=== PATIENT | female | born 1950 | race African-American/Black ===

== ENCOUNTER → 2017-03-06 | Outpatient (CLI) | payer MEDICARE, BC ==
--- NOTE | 2017-03-06 16:51 | WOMENS IMAGING REPORT ---
EXAM DESCRIPTION: 3D SCREENING MAMMO BILAT COMPLETED DATE/TIME: 03/06/2017 2:51 pm REASON FOR STUDY: SCREENING MAMMO Z12.31 ENCNTR SCREEN MAMMOGRAM FOR MALIGNANT NEOPLASM OF [place] COMPARISON: No previous for comparison TECHNIQUE: Standard craniocaudal and mediolateral oblique views of each breast recorded using digita l acquisition and breast tomosynthesis. LIMITATIONS: None. FINDINGS: Findings present which are benign by mammographic criteria. No suspicious masses, calcifi cations or architectural distortion. Pertinent benign findings: Multiple oil cysts bilaterally. Stereotactic clip 6 o'clock position left breast. Read with the assistance of CAD. .[facility] - R2 Cenova Version 1.3 .[facility] Imaging - R2 Cenova Version 1.3 .[facility] - R2 Cenova Version 2.4 .[facility] [place] - R2 Cenova Version 2.4 .[facility] - R2 Photonic Laboratory Technician Version 9.2 Benign mammographic findings may include one or more of the following: Smooth masses, popcorn/rim/co arse calcifications, asymmetries, post-procedure changes, and lesions with long-standing stability. IMPRESSION: BENIGN MAMMOGRAPHIC FINDINGS. BIRADS 2 BREAST DENSITY: a. The breasts are almost entirely fatty. BIRAD: 2 BENIGN FINDING(S) RECOMMENDATION: RECOMMENDATION: ROUTINE SCREENING Please continue yearly bilateral screening tomosynthesis in February 2018 COMMENT: The patient has been notified of the results by letter per SA requirements. Additional no tification policies are in place for contacting patient with suspicious or incomplete findings. Quality ID #[id number]: The [employer] recommends an annual screening mammogram for women aged 40 years or over. This facility utilizes a reminder system to ensure that all patients receive reminder letters, and/or direct phone calls for appointments. This includes reminders for routine scr eening mammograms, diagnostic mammograms, or other Breast Imaging Interventions when appropriate. Th is patient will be placed in the appropriate reminder system. The [employer] (ACR) has developed recommendations for screening MRI of the breast s in certain patient populations, to be used in conjunction with mammography. Breast MRI surveillanc e may be appropriate for women with more than 20% lifetime risk of developing breast cancer as deter mined by genetic testing, significant family history of the disease, or history of mantle radiation f or Hodgkins Disease. ACR Practice Guidelines 2008. DBT Technology DBT is a type of tomographic mammography. With conventional mammography, overlapping breast tissue ma y make lesions difficult to detect, even with good compression. DBT uses an x-ray tube that rotates a round the breast, taking images at different angles. These images are then combined to create thin sl ices of the breast that the radiologist can view as a 3D reconstruction. The Sky[employer] unit can perform full-field digital mammograms (2D imaging); or DBT (3D imaging); or both, in a combination mode that quickly performs both the mammogram and the tomosynthesis scan while the breast is still compressed. PQRS 6045F: Fluoroscopic imaging is not utilized for breast tomosynthesis. TECHNICAL DOCUMENTATION: FINDING NUMBER: (1) ASSESSMENT: (1) JOB ID: [id number] [employer]- All Rights Reserved
== END ==
LOC: WI 14:28
PROVIDERS: ATTEND Internal Medicine Geriatric Medicine
DX: Z12.31 Encounter for screening mammogram for malignant neoplasm of breast (principal)
CPT/HCPCS: 77063; G0202; 77067

== ENCOUNTER 2017-03-28 15:37 | Emergency (ER) | payer OTHER, MEDICARE, BC ==
[2017-03-28 16:07] VITALS: BP 144/68
[2017-03-28] MEDS ORDERED: ACETAMINOPHEN 325 MG TABLET PO ONE (16:36)
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
== END 2017-03-28 17:05 | disposition home or self-care (01) ==
LOC: ER 15:37
DX: S39.012A Strain of muscle, fascia and tendon of lower back, initial encounter (principal); S29.012A Strain of muscle and tendon of back wall of thorax, initial encounter; M54.2 Cervicalgia; V43.62XA Car passenger injured in collision with other type car in traffic accident, initial encounter; I10 Essential (primary) hypertension; E11.9 Type 2 diabetes mellitus without complications; Z88.8 Allergy status to other drugs, medicaments and biological substances; Z88.5 Allergy status to narcotic agent; Z88.0 Allergy status to penicillin; Z89.511 Acquired absence of right leg below knee
CPT/HCPCS: 99283

== ENCOUNTER 2017-04-10 14:57 | Inpatient (IN) | payer MEDICARE, BC ==
[2017-04-10 15:49] LABS: HEMATOCRIT 38.9 % (36.0-47.0); HEMOGLOBIN 12.9 g/dL (12.0-15.5); HGB HCT DIFFERENCE -0.2; MEAN CORPUSCULAR HEMOGLOBIN 28.6 pg (27.0-33.4); MEAN CORPUSCULAR HGB CONC 33.3 g/dL (32.0-36.0); MEAN CORPUSCULAR VOLUME 86 fl (80-97); RED BLOOD COUNT 4.52 10^6/uL (3.72-5.28); WHITE BLOOD COUNT 19.7 10^3/uL (4.0-10.5)
[2017-04-10 16:06] LABS: ALANINE AMINOTRANSFERASE 145 U/L (9-52); ALBUMIN 3.1 g/dL (3.5-5.0); ALKALINE PHOSPHATASE 152 U/L (38-126); ANION GAP 19 (5-19); ASPARTATE AMINO TRANSFERASE 149 U/L (14-36); BILIRUBIN,DIRECT 0.2 mg/dL (0.0-0.4); BILIRUBIN,TOTAL 0.2 mg/dL (0.2-1.3); CARBON DIOXIDE 13 mmol/L (22-30); CHLORIDE 114 mmol/L (98-107); CREATININE RESULT 9.24 mg/dL (0.52-1.25); GLUCOSE 110 mg/dL (75-110); POTASSIUM 4.1 mmol/L (3.6-5.0); SODIUM 145.9 mmol/L (137-145); TOTAL PROTEIN 6.1 g/dL (6.3-8.2)
[2017-04-10] MEDS ORDERED: FAMOTIDINE INJ/PF 20 MG/2 ML SDV IV ONE (16:08)
[2017-04-10] MEDS ORDERED: METHYLPREDNISOLONE INJ 125 MG/2 ML SDV IV ONE (16:08)
[2017-04-10 16:12] LABS: BAND NEUTROPHILS % (MANUAL) 2 % (3-5); BASOPHILS % (MANUAL) 0 % (0-2); EOSINOPHILS % (MANUAL) 0 % (0-6); LYMPHOCYTES % (MANUAL) 14 % (13-45); TOTAL CELLS COUNTED 100
[2017-04-10 16:13] LABS: ANISOCYTOSIS 1+; POIKILOCYTOSIS SLIGHT; TOXIC GRANULATION SLIGHT
[2017-04-10 16:15] LABS: BLOOD UREA NITROGEN 128 mg/dL (7-20)
[2017-04-10] MEDS ORDERED: NORMAL SALINE 1000 ML 1,000 ML IV PRN (16:22)
--- NOTE | 2017-04-10 16:24 | ER Document Report ---
ED General - General Chief Complaint: Bloody Stools Stated Complaint: POSSIBLE RECTAL BLEEDING Time Seen by Provider: 04/10/17 15:01 Mode of Arrival: Medic Information source: Patient, Relative, Emergency Med Personnel Notes: 66-year-old female who had a colonoscopy last week presents with complaints of diarrhea of one-week duration generalized weakness and complaints of rectal bleeding. Patient denies any fevers or chills denies any vomiting Patient denies a history of any kidney issues TRAVEL OUTSIDE OF THE [place] IN LAST 30 DAYS: No - HPI Onset: Last week Onset/Duration: Persistent Quality of pain: Burning Severity: Mild Pain Level: 1 Associated symptoms: Diarrhea, Weakness Exacerbated by: Denies Relieved by: Denies Similar symptoms previously: No Recently seen / treated by doctor: No - Related Data Allergies/Adverse Reactions: diphenhydramine HCl [From Benadryl] Allergy (Verified 09/05/15 13:03) morphine [Morphine] Allergy (Verified 09/05/15 13:03) Penicillins Allergy (Verified 03/28/17 15:45) Home Medications: Current Home Medications Amlodipine Besylate [Norvasc 10 mg Tablet] 10 mg PO DAILY 04/10/17 [History] Aspirin [Aspirin EC] 81 mg PO DAILY 04/10/17 [History] Atorvastatin Calcium [Lipitor 20 mg Tablet] 20 mg PO QHS 04/10/17 [History] Carvedilol [Coreg 6.25 mg Tablet] 6.25 mg PO Q12 04/10/17 [History] Citalopram Hydrobromide [Citalopram HBr] 20 mg PO DAILY 04/10/17 [History] Donepezil HCl [Aricept 5 mg Tablet] 5 mg PO DAILY 04/10/17 [History] Gabapentin [Neurontin 300 mg Capsule] 300 mg PO QHS 04/10/17 [History] Insulin Glargine,Hum.rec.anlog [Lantus Solostar] 15 unit SQ DAILY 04/10/17 [ History] Mirtazapine [Remeron 15 mg Tablet] 15 mg PO QHS 04/10/17 [History] Quetiapine Fumarate [Seroquel] 400 mg PO DAILY 04/10/17 [History] Trazodone HCl [Desyrel] 150 mg PO QHS 04/10/17 [History] Valsartan [Diovan 160 mg Tablet] 160 mg PO DAILY 04/10/17 [History] Past Medical History - Social History Smoking Status: Never Smoker Cigarette use (# per day): No Chew tobacco use (# tins/day): No Smoking Education Provided: No Family History: None - Past Medical History Cardiac Medical History: Reports: Hx Hypercholesterolemia, Hx Hypertension Renal/ Medical History: Denies: Hx Peritoneal Dialysis Psychiatric Medical History: Reports: Hx Bipolar Disorder Past Surgical History: Reports: Hx Orthopedic Surgery - [facility] Review of Systems - Review of Systems Notes: REVIEW OF SYSTEMS: CONSTITUTIONAL : Denies fever, chills, or sweats. Denies recent illness. EENT: Denies eye, ear, throat, or mouth pain or symptoms. Denies nasal or sinus congestion or discharge. Denies throat, tongue, or mouth swelling or difficulty swallowing. CARDIOVASCULAR: Denies chest pain. Denies palpitations or racing or irregular heart beat. Denies ankle edema. RESPIRATORY: Denies cough, cold, or chest congestion. Denies shortness of breath, difficulty breathing, or wheezing. GASTROINTESTINAL: rectal bleeding GENITOURINARY: Denies difficulty urinating, painful urination, burning, frequency, blood in urine, or discharge. FEMALE GENITOURINARY: Denies vaginal bleeding, heavy or abnormal periods, irregular periods. Denies vaginal discharge or odor. MUSCULOSKELETAL: Denies back or neck pain or stiffness. Denies joint pain or swelling. SKIN: Denies rash, lesions or sores. HEMATOLOGIC : Denies easy bruising or bleeding. LYMPHATIC: Denies swollen, enlarged glands. NEUROLOGICAL: Denies confusion or altered mental status. Denies passing out or loss of consciousness. Denies dizziness or lightheadedness. Denies headache. Denies weakness or paralysis or loss of use of either side. Denies problems with gait or speech. Denies sensory loss, numbness, or tingling. Denies seizures. PSYCHIATRIC: Denies anxiety or stress. Denies depression, suicidal ideation, or homicidal ideation. ALL OTHER SYSTEMS REVIEWED AND NEGATIVE. PHYSICAL EXAMINATION: GENERAL: Well-appearing, well-nourished and in no acute distress. HEAD: Atraumatic, normocephalic. EYES: Pupils equal round and reactive to light, extraocular movements intact, conjunctiva are normal. ENT: Nares patent, oropharynx clear without exudates. Moist mucous membranes. NECK: Normal range of motion, supple without lymphadenopathy LUNGS: Breath sounds clear to auscultation bilaterally and equal. No wheezes rales or rhonchi. HEART: Regular rate and rhythm without murmurs ABDOMEN: Soft, nontender, nondistended abdomen. No guarding, no rebound. No masses appreciated. Female : deferred Musculoskeletal: Chronic amputee NEUROLOGICAL: Cranial nerves grossly intact. Normal speech, normal gait. Normal sensory, motor exams PSYCH: Normal mood, normal affect. SKIN: Significant excoriation of the buttocks sacral region with bleeding bruising of the buttocks Dictation was performed using [employer] voice recognition software Physical Exam - Vital signs Vitals: Temp Resp Pulse Ox 98.6 F 21 H 96 04/10/17 15:25 04/10/17 15:25 04/10/17 15:25 Course - Re-evaluation Re-evalutation: Examination was immediately performed, there is a large amount of blood however I believe it is from the breakdown of the skin from diarrhea, patient was ordered a CT to evaluate the abdomen given the colonoscopy 1 week ago 04/10/17 16:28 I was noted that the patient's creatinine is 9.24, immediately stopped ct with the iv contrast, I spoke with patient's primary care physician and will admit to the ICU will continue with hydration - Vital Signs Vital signs: Temp Pulse Resp BP Pulse Ox 98.6 F 20 120/49 L 97 04/10/17 15:25 04/10/17 18:01 04/10/17 18:00 04/10/17 18:01 - Laboratory Result Diagrams: 04/10/17 15:30 04/10/17 15:30 Laboratory results interpreted by me: 04/10/17 04/10/17 15:30 15:30 WBC 19.7 H RDW 16.0 H Band Neutrophils % 2 L Abs Neuts (Manual) 15.4 H Abs Monocytes (Manual) 1.6 H Sodium 145.9 H Chloride 114 H Carbon Dioxide 13 L BUN 128 H Creatinine 9.24 H Est GFR ( Amer) 5 L Est GFR (Non-Af Amer) 4 L Calcium 8.0 L AST 149 H ALT 145 H Alkaline Phosphatase 152 H Total Protein 6.1 L Albumin 3.1 L - Diagnostic Test Radiology reviewed: Image reviewed, Reports reviewed Critical Care Note - Critical Care Note Total time excluding time spent on procedures (mins): 45 Comments: 45 minutes of critical care time spent in direct contact evaluating and reevaluating the patient, treating symptoms, reviewing labs and studies and speaking with family and consultants excluding any procedures Discharge - Discharge Clinical Impression: severe renal failure, Severe dehydration Diarrhea Qualifiers: Diarrhea type: infectious Qualified Code(s): A09 - Infectious gastroenteritis and colitis, unspecified Condition: Critical Disposition: ADMITTED INPATIENT Admitting Provider: Hospitalist Unit Admitted: ICU
[2017-04-10] MEDS ORDERED: NORMAL SALINE 1000 ML 1,000 ML IV ONE (16:27)
[2017-04-10] MEDS ORDERED: GLUCAGON,HUMAN RECOMB 1 MG INJ IM PRN (18:19)
[2017-04-10] MEDS ORDERED: DEXTROSE 50%-WATER 25 GM/50 ML DISP.SYRIN IV PRN ×2 (18:19)
[2017-04-10] MEDS ORDERED: DEXTROSE 40% GEL 15 GM TUBE PO PRN ×2 (18:19)
[2017-04-10 18:39] LABS: APPEARANCE,URINE CLOUDY; BILIRUBIN,URINE NEGATIVE (NEGATIVE); GLUCOSE, URINE NEGATIVE (NEGATIVE); KETONES,URINE NEGATIVE (NEGATIVE); LEUKOCYTE ESTERASE,URINE NEGATIVE (NEGATIVE); NITRITE,URINE NEGATIVE (NEGATIVE); PROTEIN,URINE 30 mg/dL (NEGATIVE); URINE SPECIFIC GRAVITY 1.017; UROBILINOGEN,URINE NEGATIVE mg/dL (<2.0)
[2017-04-10] MEDS: METRONIDAZOLE 500 MG/NS RTU 100 ML IV SCH ×2 (18:40→23:42)
[2017-04-10 19:13] LABS: PARTIAL THROMBOPLASTIN TIME 29.2 SEC (23.5-35.8)
--- NOTE | 2017-04-10 19:19 | PDOC H&P ---
History of Present Illness Admission Date/PCP: 04/10/17 17:24 SONYA OREN Patient complains of: Rectal bleeding, Diarrhea History of Present Illness: DEREK LEÓN is a 66 year old female known to my practice who presented to the ED via Medic service for rectal bleeding and ongoing diarrhea for about 1 week. Patient reported persistent diarrhea after her recent colonoscopy. She denied any associated abdominal pain, nausea, vomiting, fever, or chills. She denied any flank pain, difficulty with urination or hematuria. She denied use of any OTC pain medication including NSAID. Her initial evaluation in the ED was remarkable for significant worsening of her renal function comparative to pre-colonoscopy test results. Her morbidities include hypertension, Diabetes mellitus type 2, Hyperlipidemia, chronic pain syndrome, s/p Right BKA and Depression. Past Medical History Cardiac Medical History: Reports: Hyperlipidema, Hypertension Endocrine Medical History: Reports: Diabetes Mellitus Type 2 Psychiatric Medical History: Reports: Bipolar Disorder Past Surgical History Past Surgical History: Reports: Orthopedic Surgery - [facility] Social History Smoking Status: Never Smoker Family History Family History: None Parental Family History Reviewed: Yes Children Family History Reviewed: Yes Sibling(s) Family History Reviewed.: Yes Medication/Allergy Home Medications: Amlodipine Besylate [Norvasc 10 mg Tablet] 10 mg PO DAILY 04/10/17 Aspirin [Aspirin EC] 81 mg PO DAILY 04/10/17 Atorvastatin Calcium [Lipitor 20 mg Tablet] 20 mg PO QHS 04/10/17 Carvedilol [Coreg 6.25 mg Tablet] 6.25 mg PO Q12 04/10/17 Citalopram Hydrobromide [Citalopram HBr] 20 mg PO DAILY 04/10/17 Donepezil HCl [Aricept 5 mg Tablet] 5 mg PO DAILY 04/10/17 Gabapentin [Neurontin 300 mg Capsule] 300 mg PO QHS 04/10/17 Insulin Glargine,Hum.rec.anlog [Lantus Solostar] 15 unit SQ DAILY 04/10/17 Mirtazapine [Remeron 15 mg Tablet] 15 mg PO QHS 04/10/17 Quetiapine Fumarate [Seroquel] 400 mg PO DAILY 04/10/17 Trazodone HCl [Desyrel] 150 mg PO QHS 04/10/17 Valsartan [Diovan 160 mg Tablet] 160 mg PO DAILY 04/10/17 Allergies/Adverse Reactions: diphenhydramine HCl [From Benadryl] Allergy (Verified 09/05/15 13:03) morphine [Morphine] Allergy (Verified 09/05/15 13:03) Penicillins Allergy (Verified 03/28/17 15:45) Review of Systems Constitutional: ABSENT: chills, fever(s), headache(s), weight gain, weight loss Nose, Mouth, and Throat: ABSENT: as per HPI, headache(s), mouth pain, sore throat, vertigo, other Cardiovascular: ABSENT: chest pain, dyspnea on exertion, edema, orthropnea, palpitations Respiratory: ABSENT: cough, hemoptysis Gastrointestinal: PRESENT: diarrhea, other - rectal bleeding Genitourinary: ABSENT: dysuria, hematuria Musculoskeletal: PRESENT: deformity - s/p Right BKA Integumentary: ABSENT: rash, wounds Neurological: PRESENT: confusion, weakness - generalized due to ongoing acute illness Psychiatric: ABSENT: anxiety, depression, homidical ideation, suicidal ideation Endocrine: ABSENT: cold intolerance, heat intolerance, polydipsia, polyuria Hematologic/Lymphatic: ABSENT: easy bleeding, easy bruising, lymphadenopathy Allergic/Immunologic: ABSENT: seasonal rhinorrhea Physical Exam Vital Signs: Temp Pulse Resp BP Pulse Ox 98.6 F 20 120/49 L 97 04/10/17 15:25 04/10/17 18:01 04/10/17 18:00 04/10/17 18:01 Intake & Output 04/09/17 04/10/17 04/11/17 06:59 06:59 06:59 Output Total 725 Balance -725 General appearance: PRESENT: obese Head exam: PRESENT: atraumatic, normocephalic Eye exam: PRESENT: conjunctiva pink, EOMI, PERRLA. ABSENT: scleral icterus Ear exam: PRESENT: normal external ear exam Mouth exam: PRESENT: dry mucosa Teeth exam: PRESENT: poor dentation Throat exam: ABSENT: post pharyngeal erythema, tonsillar erythema, tonsillar exudate, tonsillogmegaly, other Neck exam: PRESENT: full ROM. ABSENT: carotid bruit, JVD, lymphadenopathy, thyromegaly Respiratory exam: PRESENT: clear to auscultation arlene, decreased breath sounds - at lung bases Cardiovascular exam: PRESENT: RRR. ABSENT: diastolic murmur, rubs, systolic murmur Pulses: PRESENT: normal dorsalis pedis pul, +2 pedal pulses bilateral - left leg and right leg femoral pulsation Vascular exam: PRESENT: normal capillary refill. ABSENT: pallor GI/Abdominal exam: PRESENT: diminished bowel sounds, hypoactive bowel sounds, normal bowel sounds, tenderness - nonspecific and generalized to palpation. ABSENT: ascites, distended, guarding, mass, organolmegaly, rebound, soft Rectal exam: PRESENT: deferred - reflected in ED evaluation Extremities exam: PRESENT: right BKA. ABSENT: pedal edema Musculoskeletal exam: PRESENT: full ROM - except right BKA stump. ABSENT: ambulatory Neurological exam: PRESENT: altered - confused intermittently in her responses, awake Psychiatric exam: PRESENT: appropriate affect, normal mood. ABSENT: homicidal ideation, suicidal ideation Skin exam: PRESENT: dry, rash - extensive excuriation in the perineal region with Allevyn dressing at the time of my examination, warm Results Laboratory Results: I reviewed her lab results on [facility] and form significant part of my medical decision in thiscase. 04/10/17 18:15 Urine Color YELLOW Urine Appearance CLOUDY Urine pH 5.0 Ur Specific [place] 1.017 Urine Protein 30 H Urine Glucose (UA) NEGATIVE Urine Ketones NEGATIVE Urine Blood LARGE H Urine Nitrite NEGATIVE Ur Leukocyte Esterase NEGATIVE Urine WBC (Auto) 25 Urine RBC (Auto) 2 Assessment & Plan - Diagnosis (1) Acute renal failure due to tubular necrosis Is this a current diagnosis for this admission?: Yes Plan: See admitting attending physician (2) Acute diarrhea Is this a current diagnosis for this admission?: Yes Plan: See admitting attending physician (3) Toxic metabolic encephalopathy Is this a current diagnosis for this admission?: Yes Plan: See admitting attending physician (4) Probable sepsis Is this a current diagnosis for this admission?: Yes Plan: See admitting attending physician (5) Diabetes mellitus type 2 in obese Is this a current diagnosis for this admission?: Yes Plan: See admitting attending physician (6) HTN (hypertension) Qualifiers: Hypertension type: essential hypertension Qualified Code(s): I10 - Essential (primary) hypertension Is this a current diagnosis for this admission?: Yes Plan: See admitting attending physician (7) HLD (hyperlipidemia) Qualifiers: Hyperlipidemia type: pure hypercholesterolemia Qualified Code(s): E78.00 - Pure hypercholesterolemia, unspecified; E78.0 - Pure hypercholesterolemia Is this a current diagnosis for this admission?: Yes Plan: See admitting attending physician (8) Bipolar disorder Qualifiers: Current bipolar episode type: depressed Psychotic features: without psychotic features Is this a current diagnosis for this admission?: Yes Plan: See admitting attending physician - Time Time Spent: Greater than 70 Minutes Medications reviewed and adjusted accordingly: Yes Anticipated discharge: Home with Homehealth Within: Other - Inpatient Certification Based on my medical assessment, after consideration of the patient's comorbidities, presenting symptoms, or acuity I expect that the services needed warrant INPATIENT care.: Yes I certify that my determination is in accordance with my understanding of Medicare's requirements for reasonable and necessary INPATIENT services [42 CFR 412.3e].: Yes Medical Necessity: Need Close Monitoring Due to Risk of Patient Decompensation, Need For IV Fluids, Need For Continuous Telemetry Monitoring, Need for IV Antibiotics, Risk of Complication if Not Cared For in Hospital Post 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
[2017-04-10 19:28] LABS: CREATININE RESULT 8.46 mg/dL (0.52-1.25)
[2017-04-10] MEDS: CEFTRIAXONE 1 GM/D5W RTU 1 GM/50 ML RTUPB IV SCH (21:02)
[2017-04-10] MEDS: CARVEDILOL 6.25 MG TABLET PO SCH (21:45)
--- NOTE | 2017-04-10 22:21 | RADIOLOGY REPORT (SQ) ---
EXAM DESCRIPTION: CT ABD/PELVIS NO ORAL OR IV COMPLETED DATE/TIME: 04/10/2017 7:57 pm REASON FOR STUDY: rectal bleeding post colonoscopy COMPARISON: None. TECHNIQUE: CT scan of the abdomen and pelvis performed without intravenous or oral contrast. Images reviewed with lung, soft tissue, and bone windows. Reconstructed coronal and sagittal MPR images revi ewed. All images stored on PACS. All CT scanners at this facility use dose modulation, iterative reconstruction, and/or weight based d osing when appropriate to reduce radiation dose to as low as reasonably achievable (ALARA). [facility]: Dose Right [facility]: CareDose [facility]: Dose Right [facility]: Teradose 4D [facility]: Smart Reenergy Electric RADIATION DOSE: CT Rad equipment meets quality standard of care and radiation dose reduction techniq ues were employed. CTDIvol: 18.0 mGy. DLP: 929 mGy-cm.mGy. LIMITATIONS: None. FINDINGS: LOWER CHEST: No significant findings. No nodules or infiltrates. NON-CONTRASTED LIVER, SPLEEN, ADRENALS: Evaluation limited by lack of IV contrast. No identified sign ificant masses. PANCREAS: No masses. No peripancreatic inflammatory changes. GALLBLADDER: Small calcified gallstones. No inflammatory changes to suggest cholecystitis. RIGHT KIDNEY AND URETER: No suspicious masses. Assessment limited by lack of IV contrast. Small luis felipe cifications. No hydronephrosis or hydroureter. LEFT KIDNEY AND URETER: No suspicious masses. Assessment limited by lack of IV contrast. Small calc ifications. No hydronephrosis or hydroureter. AORTA AND RETROPERITONEUM: No aneurysm. No retroperitoneal masses or adenopathy. BOWEL AND PERITONEAL CAVITY: No obvious masses or inflammatory changes. No free fluid. APPENDIX: Normal. PELVIS, BLADDER, AND ABDOMINAL WALL:No abnormal masses. No free fluid. Bladder decompressed with Fole y catheter. BONES: No acute findings. . OTHER: No other significant finding. IMPRESSION: Mild stranding in the perirectal fossa, nonspecific. No fluid collection or free air. COMMENT: Quality ID # [id number]: Final reports with documentation of one or more dose reduction techniques (e.g., Automated exposure control, adjustment of the mA and/or kV according to patient size, use of iterative reconstruction technique) TECHNICAL DOCUMENTATION: JOB ID: [id number] [place]-72 2010 [employer]- All Rights Reserved
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
[2017-04-11] MEDS: OXYCODONE-ACETAMINOPHEN 5-325 MG TABLET PO PRN ×3 (05:22→21:44)
[2017-04-11] MEDS: NORMAL SALINE 1000 ML 1,000 ML IV PRN ×2 (05:30→21:23)
[2017-04-11] MEDS: LANSOPRAZOLE 30 MG TAB.RAP.DR PO SCH (06:04)
[2017-04-11] MEDS: METRONIDAZOLE 500 MG/NS RTU 100 ML IV SCH ×4 (06:05→23:10)
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
--- NOTE | 2017-04-11 10:11 | RADIOLOGY REPORT (SQ) ---
EXAM DESCRIPTION: U/S ABDOMEN COMPLETE W/O DOP COMPLETED DATE/TIME: 04/11/2017 10:00 am REASON FOR STUDY: abnormal lft COMPARISON: None. TECHNIQUE: Dynamic and static grayscale images acquired of the abdomen and recorded on PACS. Additio nal selected color Doppler and spectral images recorded. LIMITATIONS: None. FINDINGS: PANCREAS: No masses. Visualized pancreatic duct normal caliber. LIVER: No masses. Echotexture normal. LIVER VASCULATURE: Normal directional flow of the main portal vein and hepatic veins. GALLBLADDER: Small echogenic shadowing foci consistent with stones. No wall thickening or pericholec ystic fluid, however. ULTRASOUND-DETECTED BURCIAGA'S SIGN: Negative. INTRAHEPATIC DUCTS AND COMMON DUCT: CBD and intrahepatic ducts normal caliber. No filling defects. INFERIOR VENA CAVA: Normal flow. AORTA: No aneurysm. RIGHT KIDNEY:Normal size. Normal echogenicity. No solid or suspicious masses. No hydronephrosis. No c alcifications. LEFT KIDNEY: Normal size. Normal echogenicity. No solid or suspicious masses. No hydronephrosis. No calcifications. SPLEEN: Normal size. No solid masses. PERITONEAL AND PLEURAL SPACES: No ascites or effusions. OTHER: No other significant finding. IMPRESSION: 1. Cholelithiasis. 2. Otherwise unremarkable abdominal ultrasound. TECHNICAL DOCUMENTATION: JOB ID: [id number] [employer]- All Rights Reserved
[2017-04-11] MEDS: AMLODIPINE BESYLATE 10 MG TABLET PO SCH (10:40)
[2017-04-11] MEDS: CARVEDILOL 6.25 MG TABLET PO SCH ×2 (10:41→21:23)
--- NOTE | 2017-04-11 10:49 | PDOC PROGRESS REPORT ---
Subjective Progress Note for:: 04/11/17 Reason For Visit: Patient reexamined with nursing staff morning of 04/11/2017. She is a poor historian and really communicate what has happened to her in the last few weeks. Physical Exam Vital Signs: Temp Pulse Resp BP Pulse Ox 97.8 F 86 18 159/61 H 95 04/11/17 07:54 04/11/17 07:54 04/11/17 07:54 04/11/17 07:54 04/11/17 07:54 Intake & Output 04/10/17 04/11/17 04/12/17 06:59 06:59 06:59 Intake Total 1410 Output Total 1925 Balance -515 Weight 74.6 kg General appearance: PRESENT: mild distress GI/Abdominal exam: PRESENT: other - Abdomen is soft nontender no peritoneal signs no rigidity Rectal exam: PRESENT: other - Involved in extreme left lateral position. She has widespread excoriation grade 1 grade 2 sacral coccygeal skin breakdown likely due to fecal contamination. The anus itself is unremarkable. Sphincter tone is normal. There is streaking of the upper thighs Focused psych exam: PRESENT: other - Mumbles simple answers. Results Laboratory Results: 04/10/17 18:40 04/10/17 18:40 04/10/17 04/10/17 04/10/17 18:15 18:40 18:40 WBC Cancelled RBC Cancelled Hgb Cancelled Hct Cancelled MCV Cancelled MCH Cancelled MCHC Cancelled RDW Cancelled Plt Count Cancelled Creatinine Est GFR ( Amer) Est GFR (Non-Af Amer) Lactic Acid 1.0 Urine Color YELLOW Urine Appearance CLOUDY Urine pH 5.0 Ur Specific [place] 1.017 Urine Protein 30 H Urine Glucose (UA) NEGATIVE Urine Ketones NEGATIVE Urine Blood LARGE H Urine Nitrite NEGATIVE Ur Leukocyte Esterase NEGATIVE Urine WBC (Auto) 25 Urine RBC (Auto) 2 04/10/17 18:40 WBC RBC Hgb Hct MCV MCH MCHC RDW Plt Count Creatinine 8.46 H Est GFR ( Amer) 6 L Est GFR (Non-Af Amer) 5 L Lactic Acid Urine Color Urine Appearance Urine pH Ur Specific [place] Urine Protein Urine Glucose (UA) Urine Ketones Urine Blood Urine Nitrite Ur Leukocyte Esterase Urine WBC (Auto) Urine RBC (Auto) Impressions: Abdomen/Pelvis CT 04/10/17 15:01 IMPRESSION: Mild stranding in the perirectal fossa, nonspecific. No fluid collection or free air. Abdomen Ultrasound 04/11/17 00:00 IMPRESSION: 1. Cholelithiasis. 2. Otherwise unremarkable abdominal ultrasound. Assessment & Plan - Diagnosis (1) Excoriation of buttock Qualifiers: Encounter type: subsequent encounter Qualified Code(s): S30.810D - Abrasion of lower back and pelvis, subsequent encounter Is this a current diagnosis for this admission?: Yes Plan: Assessment: Wound breakdown of the coccygeal area likely due to fecal soilage, prolonged contact with skin now with 1-2 decubiti formation. Plan: 1. Nothing to debride 2. Spoke with nursing services; patient needs pressure offloading, rotating in the lateral positions. 3. Topical skin cream after cleaning appropriate 4. We will sign off; reconsult if needed
[2017-04-11] MEDS: CEFTRIAXONE 1 GM/D5W RTU 1 GM/50 ML RTUPB IV SCH (18:03)
[2017-04-12] MEDS: METRONIDAZOLE 500 MG/NS RTU 100 ML IV SCH ×3 (05:01→17:32)
[2017-04-12] MEDS: LANSOPRAZOLE 30 MG TAB.RAP.DR PO SCH (05:01)
[2017-04-12 05:11] LABS: HEMATOCRIT 37.7 % (36.0-47.0); HEMOGLOBIN 12.4 g/dL (12.0-15.5); HGB HCT DIFFERENCE -0.5; MEAN CORPUSCULAR HEMOGLOBIN 27.8 pg (27.0-33.4); MEAN CORPUSCULAR HGB CONC 32.8 g/dL (32.0-36.0); MEAN CORPUSCULAR VOLUME 85 fl (80-97); RED BLOOD COUNT 4.44 10^6/uL (3.72-5.28); RED CELL DISTRIBUTION WIDTH 15.8 % (11.5-14.0); WHITE BLOOD COUNT 15.9 10^3/uL (4.0-10.5)
[2017-04-12 05:31] LABS: ALANINE AMINOTRANSFERASE 123 U/L (9-52); ALBUMIN 3.3 g/dL (3.5-5.0); ALKALINE PHOSPHATASE 169 U/L (38-126); ANION GAP 13 (5-19); ASPARTATE AMINO TRANSFERASE 85 U/L (14-36); BILIRUBIN,DIRECT 0.2 mg/dL (0.0-0.4); BILIRUBIN,TOTAL 0.3 mg/dL (0.2-1.3); BLOOD UREA NITROGEN 79 mg/dL (7-20); CALCIUM 9.2 mg/dL (8.4-10.2); CARBON DIOXIDE 20 mmol/L (22-30); CHLORIDE 129 mmol/L (98-107); CREATININE RESULT 1.34 mg/dL (0.52-1.25); GLUCOSE 135 mg/dL (75-110); POTASSIUM 4.5 mmol/L (3.6-5.0); SODIUM 162.2 mmol/L (137-145); TOTAL PROTEIN 6.4 g/dL (6.3-8.2)
[2017-04-12 05:53] LABS: ABSOLUTE EOSINOPHILS# (MANUAL) 0.3 10^3/uL (0.0-0.6); BASOPHILS % (MANUAL) 0 % (0-2); EOSINOPHILS % (MANUAL) 2 % (0-6); LYMPHOCYTES % (MANUAL) 13 % (13-45); TOTAL CELLS COUNTED 100
[2017-04-12 05:56] LABS: ANISOCYTOSIS SLIGHT; POIKILOCYTOSIS 1+; TARGET CELLS 1+; TEAR DROP CELLS SLIGHT; TOXIC GRANULATION SLIGHT; TOXIC VACUOLATION PRESENT
[2017-04-12 05:57] LABS: PLATELET CLUMPS PRESENT
[2017-04-12] MEDS: CARVEDILOL 6.25 MG TABLET PO SCH ×2 (09:54→21:37)
[2017-04-12] MEDS: AMLODIPINE BESYLATE 10 MG TABLET PO SCH (09:55)
--- NOTE | 2017-04-12 10:38 | PDOC PROGRESS REPORT ---
Subjective Progress Note for:: 04/12/17 Subjective:: Patient is feeling same. Patient's creatinine is coming down to below 2 Patient otherwise no other events happens Reason For Visit: SEVERE RENAL FAILURE Physical Exam Vital Signs: Temp Pulse Resp BP Pulse Ox 97.6 F 94 20 177/57 H 96 04/12/17 08:39 04/12/17 08:39 04/12/17 08:39 04/12/17 08:39 04/12/17 08:39 Intake & Output 04/11/17 04/12/17 04/13/17 06:59 06:59 06:59 Intake Total 1410 2509 Output Total 1925 3275 Balance -515 -766 Weight 74.6 kg General appearance: PRESENT: no acute distress, well-developed, well-nourished Head exam: PRESENT: atraumatic, normocephalic Eye exam: PRESENT: conjunctiva pink, EOMI, PERRLA. ABSENT: scleral icterus Ear exam: PRESENT: normal external ear exam Mouth exam: PRESENT: moist, tongue midline Neck exam: PRESENT: full ROM. ABSENT: carotid bruit, JVD, lymphadenopathy, thyromegaly Respiratory exam: PRESENT: clear to auscultation arlene Cardiovascular exam: PRESENT: RRR. ABSENT: diastolic murmur, rubs, systolic murmur Pulses: PRESENT: normal dorsalis pedis pul, +2 pedal pulses bilateral Vascular exam: PRESENT: normal capillary refill GI/Abdominal exam: PRESENT: normal bowel sounds, soft. ABSENT: distended, guarding, mass, organolmegaly, rebound, tenderness Rectal exam: PRESENT: deferred Extremities exam: ABSENT: pedal edema Neurological exam: PRESENT: alert, awake, oriented to person. ABSENT: motor sensory deficit Psychiatric exam: PRESENT: appropriate affect, normal mood. ABSENT: homicidal ideation, suicidal ideation Skin exam: PRESENT: dry, intact, warm. ABSENT: cyanosis, rash Results Laboratory Results: 04/12/17 04:39 04/12/17 04:39 04/12/17 04/12/17 04:39 04:39 WBC 15.9 H RBC 4.44 Hgb 12.4 Hct 37.7 MCV 85 MCH 27.8 MCHC 32.8 RDW 15.8 H Plt Count 250 Seg Neutrophils % Not Reportable Lymphocytes % Not Reportable Monocytes % Not Reportable Eosinophils % Not Reportable Basophils % Not Reportable Absolute Neutrophils Not Reportable Absolute Lymphocytes Not Reportable Absolute Monocytes Not Reportable Absolute Eosinophils Not Reportable Absolute Basophils Not Reportable Sodium 162.2 H Potassium 4.5 Chloride 129 H Carbon Dioxide 20 L Anion Gap 13 BUN 79 H Creatinine 1.34 H Est GFR ( Amer) 48 L Est GFR (Non-Af Amer) 40 L Glucose 135 H Calcium 9.2 Total Bilirubin 0.3 AST 85 H ALT 123 H Alkaline Phosphatase 169 H Total Protein 6.4 Albumin 3.3 L 04/10/17 18:15 Fish Catheter Urine Culture - Final Mixed Urogenital Carolyn Impressions: Abdomen/Pelvis CT 04/10/17 15:01 IMPRESSION: Mild stranding in the perirectal fossa, nonspecific. No fluid collection or free air. Abdomen Ultrasound 04/11/17 00:00 IMPRESSION: 1. Cholelithiasis. 2. Otherwise unremarkable abdominal ultrasound. Assessment & Plan - Diagnosis (1) Acute diarrhea Is this a current diagnosis for this admission?: Yes Plan: Currently all stable (2) Acute renal failure due to tubular necrosis Is this a current diagnosis for this admission?: Yes Plan: All improving will cut down the IV fluid (3) Bipolar disorder Qualifiers: Current bipolar episode type: depressed Psychotic features: without psychotic features Is this a current diagnosis for this admission?: Yes (4) Diabetes mellitus type 2 in obese Is this a current diagnosis for this admission?: Yes Plan: Continues current medications (5) Excoriation of buttock Qualifiers: Encounter type: subsequent encounter Qualified Code(s): S30.810D - Abrasion of lower back and pelvis, subsequent encounter Is this a current diagnosis for this admission?: Yes Plan: Seen by general surgery (6) HLD (hyperlipidemia) Qualifiers: Hyperlipidemia type: pure hypercholesterolemia Qualified Code(s): E78.00 - Pure hypercholesterolemia, unspecified; E78.0 - Pure hypercholesterolemia Is this a current diagnosis for this admission?: Yes (7) HTN (hypertension) Qualifiers: Hypertension type: essential hypertension Qualified Code(s): I10 - Essential (primary) hypertension Is this a current diagnosis for this admission?: Yes (8) Probable sepsis Is this a current diagnosis for this admission?: Yes Plan: Waiting for the all cultures and continues to IV antibiotic - Time Time Spent with patient: 15-24 minutes Medications reviewed and adjusted accordingly: Yes Anticipated discharge: Other Within: Other - Inpatient Certification Medical Necessity: Need Close Monitoring Due to Risk of Patient Decompensation, Need For IV Fluids, Need for IV Antibiotics 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
[2017-04-12] MEDS ORDERED: NORMAL SALINE 1000 ML 1,000 ML IV PRN (10:39)
[2017-04-12] MEDS: CEFTRIAXONE 1 GM/D5W RTU 1 GM/50 ML RTUPB IV SCH (18:33)
[2017-04-13] MEDS: METRONIDAZOLE 500 MG/NS RTU 100 ML IV SCH ×5 (00:02→23:50)
[2017-04-13] MEDS: OXYCODONE-ACETAMINOPHEN 5-325 MG TABLET PO PRN ×3 (03:52→22:05)
[2017-04-13] MEDS: LANSOPRAZOLE 30 MG TAB.RAP.DR PO SCH (05:31)
[2017-04-13 06:09] LABS: HEMATOCRIT 42.1 % (36.0-47.0); HEMOGLOBIN 14.1 g/dL (12.0-15.5); HGB HCT DIFFERENCE 0.2; MEAN CORPUSCULAR HEMOGLOBIN 28.5 pg (27.0-33.4); MEAN CORPUSCULAR HGB CONC 33.6 g/dL (32.0-36.0); MEAN CORPUSCULAR VOLUME 85 fl (80-97); RED BLOOD COUNT 4.96 10^6/uL (3.72-5.28); RED CELL DISTRIBUTION WIDTH 16.4 % (11.5-14.0); WHITE BLOOD COUNT 21.8 10^3/uL (4.0-10.5)
[2017-04-13 06:15] LABS: ANION GAP 15 (5-19); BLOOD UREA NITROGEN 51 mg/dL (7-20); CALCIUM 9.3 mg/dL (8.4-10.2); CARBON DIOXIDE 23 mmol/L (22-30); CHLORIDE 133 mmol/L (98-107); CREATININE RESULT 1.19 mg/dL (0.52-1.25); GLUCOSE 140 mg/dL (75-110); POTASSIUM 4.3 mmol/L (3.6-5.0)
[2017-04-13 06:33] LABS: BASOPHILS % (MANUAL) 0 % (0-2); EOSINOPHILS % (MANUAL) 0 % (0-6); LYMPHOCYTES % (MANUAL) 15 % (13-45); TOTAL CELLS COUNTED 100
[2017-04-13 06:35] LABS: ANISOCYTOSIS 1+; POLYCHROMASIA SLIGHT; TARGET CELLS 1+; TOXIC GRANULATION SLIGHT
[2017-04-13] MEDS: DEXTROSE 5%-WATER 1000 ML 1,000 ML IV PRN ×2 (07:37→23:56)
[2017-04-13] MEDS: AMLODIPINE BESYLATE 10 MG TABLET PO SCH (09:35)
[2017-04-13] MEDS: CARVEDILOL 6.25 MG TABLET PO SCH ×2 (09:35→22:05)
[2017-04-13] MEDS: INSULIN LISPRO 100 UNIT/ML 3 ML VIAL SUBCUT PRN (17:32)
[2017-04-13] MEDS: CEFTRIAXONE 1 GM/D5W RTU 1 GM/50 ML RTUPB IV SCH (18:21)
--- NOTE | 2017-04-13 19:14 | PDOC PROGRESS REPORT ---
Subjective Progress Note for:: 04/13/17 Subjective:: Patient denied any chest pain or difficulty with breathing. No nausea, vomiting , or abdominal pain. Patient have been off oral feeding since last clinical evaluation by myself. Interval surgical consultation in put appreciated. No fever or chills. Remain on IV fluid support and antibiotic therapy. Reason For Visit: SEVERE RENAL FAILURE Physical Exam Vital Signs: Temp Pulse Resp BP Pulse Ox 97.5 F 107 H 22 H 176/94 H 91 L 04/13/17 16:34 04/13/17 16:34 04/13/17 16:34 04/13/17 16:34 04/13/17 16:34 Intake & Output 04/12/17 04/13/17 04/14/17 06:59 06:59 06:59 Intake Total 2509 2500 1175 Output Total 3275 3300 700 Balance -766 -800 475 Weight 72 kg General appearance: PRESENT: no acute distress Head exam: PRESENT: atraumatic, normocephalic Eye exam: PRESENT: conjunctiva pink, EOMI, PERRLA. ABSENT: scleral icterus Mouth exam: PRESENT: dry mucosa Teeth exam: PRESENT: poor dentation Respiratory exam: PRESENT: clear to auscultation arlene, decreased breath sounds - at lung bases Cardiovascular exam: PRESENT: RRR. ABSENT: diastolic murmur, rubs, systolic murmur Vascular exam: PRESENT: normal capillary refill. ABSENT: pallor GI/Abdominal exam: PRESENT: normal bowel sounds, soft. ABSENT: distended, guarding, mass, organolmegaly, rebound, tenderness Rectal exam: PRESENT: deferred Extremities exam: PRESENT: right BKA Neurological exam: PRESENT: alert, awake, oriented to person, oriented to place , oriented to time, oriented to situation, CN II-XII grossly intact. ABSENT: motor sensory deficit Psychiatric exam: PRESENT: appropriate affect, normal mood. ABSENT: homicidal ideation, suicidal ideation Skin exam: PRESENT: dry, warm, other - perineal region excoriation Results Laboratory Results: 04/13/17 05:30 04/13/17 05:30 04/13/17 04/13/17 05:30 05:30 WBC 21.8 H RBC 4.96 Hgb 14.1 Hct 42.1 MCV 85 MCH 28.5 MCHC 33.6 RDW 16.4 H Plt Count 298 Seg Neutrophils % Not Reportable Lymphocytes % Not Reportable Monocytes % Not Reportable Eosinophils % Not Reportable Basophils % Not Reportable Absolute Neutrophils Not Reportable Absolute Lymphocytes Not Reportable Absolute Monocytes Not Reportable Absolute Eosinophils Not Reportable Absolute Basophils Not Reportable Sodium 171.0 H* Potassium 4.3 Chloride 133 H Carbon Dioxide 23 Anion Gap 15 BUN 51 H Creatinine 1.19 Est GFR ( Amer) 55 L Est GFR (Non-Af Amer) 46 L Glucose 140 H Calcium 9.3 Impressions: Abdomen/Pelvis CT 04/10/17 15:01 IMPRESSION: Mild stranding in the perirectal fossa, nonspecific. No fluid collection or free air. Abdomen Ultrasound 04/11/17 00:00 IMPRESSION: 1. Cholelithiasis. 2. Otherwise unremarkable abdominal ultrasound. Assessment & Plan - Diagnosis (1) Acute renal failure due to tubular necrosis Is this a current diagnosis for this admission?: Yes (2) Acute diarrhea Is this a current diagnosis for this admission?: Yes (3) Toxic metabolic encephalopathy Is this a current diagnosis for this admission?: Yes (4) Probable sepsis Is this a current diagnosis for this admission?: Yes (5) Diabetes mellitus type 2 in obese Is this a current diagnosis for this admission?: Yes (6) HTN (hypertension) Qualifiers: Hypertension type: essential hypertension Qualified Code(s): I10 - Essential (primary) hypertension Is this a current diagnosis for this admission?: Yes (7) HLD (hyperlipidemia) Qualifiers: Hyperlipidemia type: pure hypercholesterolemia Qualified Code(s): E78.00 - Pure hypercholesterolemia, unspecified; E78.0 - Pure hypercholesterolemia Is this a current diagnosis for this admission?: Yes (8) Bipolar disorder Qualifiers: Current bipolar episode type: depressed Psychotic features: without psychotic features Is this a current diagnosis for this admission?: Yes - Time Time Spent with patient: 35 or more minutes Medications reviewed and adjusted accordingly: Yes Anticipated discharge: Home with Homehealth Within: Other - Inpatient Certification Based on my medical assessment, after consideration of the patient's comorbidities, presenting symptoms, or acuity I expect that the services needed warrant INPATIENT care.: Yes I certify that my determination is in accordance with my understanding of Medicare's requirements for reasonable and necessary INPATIENT services [42 CFR 412.3e].: Yes Medical Necessity: Need Close Monitoring Due to Risk of Patient Decompensation, Need For IV Fluids, Need For Continuous Telemetry Monitoring, Need for IV Antibiotics, Risk of Complication if Not Cared For in Hospital Post Hospital 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 Start on Cefepime 1 gm IV q12 hours. Repeat CBC with Diff, CMP in am. Encourage oral intake. Continue all other current medication management.
[2017-04-14] MEDS: OXYCODONE-ACETAMINOPHEN 5-325 MG TABLET PO PRN ×4 (02:13→21:44)
[2017-04-14] MEDS: METRONIDAZOLE 500 MG/NS RTU 100 ML IV SCH ×3 (05:28→18:09)
[2017-04-14] MEDS: LANSOPRAZOLE 30 MG TAB.RAP.DR PO SCH (05:28)
[2017-04-14 05:46] LABS: HEMATOCRIT 44.1 % (36.0-47.0); HEMOGLOBIN 14.5 g/dL (12.0-15.5); HGB HCT DIFFERENCE -0.6; MEAN CORPUSCULAR HEMOGLOBIN 28.2 pg (27.0-33.4); MEAN CORPUSCULAR VOLUME 86 fl (80-97); RED BLOOD COUNT 5.15 10^6/uL (3.72-5.28); RED CELL DISTRIBUTION WIDTH 16.4 % (11.5-14.0)
[2017-04-14 05:48] LABS: ANION GAP 16 (5-19); BLOOD UREA NITROGEN 39 mg/dL (7-20); CALCIUM 9.2 mg/dL (8.4-10.2); CARBON DIOXIDE 23 mmol/L (22-30); CHLORIDE 128 mmol/L (98-107); CREATININE RESULT 1.16 mg/dL (0.52-1.25); GLUCOSE 166 mg/dL (75-110); SODIUM 166.5 mmol/L (137-145)
[2017-04-14 06:33] LABS: BAND NEUTROPHILS % (MANUAL) 1 % (3-5); BASOPHILS % (MANUAL) 0 % (0-2); EOSINOPHILS % (MANUAL) 0 % (0-6); LYMPHOCYTES % (MANUAL) 25 % (13-45); TOTAL CELLS COUNTED 100
[2017-04-14 06:36] LABS: ANISOCYTOSIS 1+; POIKILOCYTOSIS SLIGHT; POLYCHROMASIA SLIGHT; TARGET CELLS SLIGHT
[2017-04-14] MEDS: CARVEDILOL 6.25 MG TABLET PO SCH ×2 (09:26→21:43)
[2017-04-14] MEDS: AMLODIPINE BESYLATE 10 MG TABLET PO SCH (09:27)
[2017-04-14] MEDS: INSULIN LISPRO 100 UNIT/ML 3 ML VIAL SUBCUT PRN (12:43)
[2017-04-14] MEDS ORDERED: VANCOMYCIN HCL 0 MG in DEXTROSE 5%-WATER 250 ML IV NR (20:45)
--- NOTE | 2017-04-14 20:53 | PDOC PROGRESS REPORT ---
Subjective Progress Note for:: 04/14/17 Subjective:: Patient denied chest pain or difficulty with breathing. Nursing staff reported persistence of significant diarrhea. No abdominal pain, nausea, or vomiting. No fever or chills. Remain on IV fluid support and antibiotic therapy. Reason For Visit: SEVERE RENAL FAILURE Physical Exam Vital Signs: Temp Pulse Resp BP Pulse Ox 98.6 F 87 19 163/83 H 100 04/14/17 19:50 04/14/17 19:50 04/14/17 19:50 04/14/17 19:50 04/14/17 19:50 Intake & Output 04/13/17 04/14/17 04/15/17 06:59 06:59 06:59 Intake Total 2500 2493 1537 Output Total 3300 1500 400 Balance -348 034 8948 Weight 72 kg 70.5 kg Physical Exam: General appearance: PRESENT: no acute distress Head exam: PRESENT: atraumatic, normocephalic Eye exam: PRESENT: conjunctiva pink, EOMI, PERRLA. ABSENT: scleral icterus Mouth exam: PRESENT: dry mucosa Teeth exam: PRESENT: poor dentition Respiratory exam: PRESENT: clear to auscultation arlene, decreased breath sounds - at lung bases Cardiovascular exam: PRESENT: RRR. ABSENT: diastolic murmur, rubs, systolic murmur Vascular exam: PRESENT: normal capillary refill. ABSENT: pallor GI/Abdominal exam: PRESENT: normal bowel sounds, soft. ABSENT: distended, guarding, mass, organomegaly, rebound, tenderness Rectal exam: PRESENT: deferred Extremities exam: PRESENT: right BKA Neurological exam: PRESENT: alert, awake, oriented to person, oriented to place , oriented to time, oriented to situation, CN II-XII grossly intact. ABSENT: motor sensory deficit Psychiatric exam: PRESENT: appropriate affect, normal mood. ABSENT: homicidal ideation, suicidal ideation Skin exam: PRESENT: dry, warm, other - perineal region excoriation Results Laboratory Results: 04/14/17 04:23 04/14/17 04:23 04/14/17 04/14/17 04/14/17 04:23 04:23 14:30 WBC 28.0 H RBC 5.15 Hgb 14.5 Hct 44.1 MCV 86 MCH 28.2 MCHC 33.0 RDW 16.4 H Plt Count 244 Seg Neutrophils % Not Reportable Lymphocytes % Not Reportable Monocytes % Not Reportable Eosinophils % Not Reportable Basophils % Not Reportable Absolute Neutrophils Not Reportable Absolute Lymphocytes Not Reportable Absolute Monocytes Not Reportable Absolute Eosinophils Not Reportable Absolute Basophils Not Reportable Sodium 166.5 H Potassium 4.0 Chloride 128 H Carbon Dioxide 23 Anion Gap 16 BUN 39 H Creatinine 1.16 Est GFR ( Amer) 57 L Est GFR (Non-Af Amer) 47 L Glucose 166 H Calcium 9.2 Stool Occult Blood POSITIVE Impressions: Abdomen/Pelvis CT 04/10/17 15:01 IMPRESSION: Mild stranding in the perirectal fossa, nonspecific. No fluid collection or free air. Abdomen Ultrasound 04/11/17 00:00 IMPRESSION: 1. Cholelithiasis. 2. Otherwise unremarkable abdominal ultrasound. Assessment & Plan - Diagnosis (1) Acute renal failure due to tubular necrosis Is this a current diagnosis for this admission?: Yes Plan: Resolving with IV fluid support. (2) Acute diarrhea Is this a current diagnosis for this admission?: Yes Plan: Intermittent diarrhea persist. C. difficile toxin reported negative. Start on Imodium therapy. (3) Toxic metabolic encephalopathy Is this a current diagnosis for this admission?: Yes Plan: Resolving with improvement in her renal indices. (4) Probable sepsis Is this a current diagnosis for this admission?: Yes Plan: Worsening leukocytosis despite IV coverage with Flagyl and Rocephin. I will add IV Vancoimycin to anti biotic coverage pending culture findings. (5) Diabetes mellitus type 2 in obese Is this a current diagnosis for this admission?: Yes (6) HTN (hypertension) Qualifiers: Hypertension type: essential hypertension Qualified Code(s): I10 - Essential (primary) hypertension Is this a current diagnosis for this admission?: Yes (7) HLD (hyperlipidemia) Qualifiers: Hyperlipidemia type: pure hypercholesterolemia Qualified Code(s): E78.00 - Pure hypercholesterolemia, unspecified; E78.0 - Pure hypercholesterolemia Is this a current diagnosis for this admission?: Yes (8) Bipolar disorder Qualifiers: Current bipolar episode type: depressed Psychotic features: without psychotic features Is this a current diagnosis for this admission?: Yes - Time Time Spent with patient: 25-34 minutes Medications reviewed and adjusted accordingly: Yes Anticipated discharge: Home with Homehealth Within: Other - Inpatient Certification Based on my medical assessment, after consideration of the patient's comorbidities, presenting symptoms, or acuity I expect that the services needed warrant INPATIENT care.: Yes I certify that my determination is in accordance with my understanding of Medicare's requirements for reasonable and necessary INPATIENT services [42 CFR 412.3e].: Yes Medical Necessity: Need Close Monitoring Due to Risk of Patient Decompensation, Need For IV Fluids, Need For Continuous Telemetry Monitoring, Need for IV Antibiotics, Risk of Complication if Not Cared For in Hospital 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
[2017-04-14] MEDS: CEFTRIAXONE 1 GM/D5W RTU 1 GM/50 ML RTUPB IV SCH (21:44)
[2017-04-14] MEDS: LOPERAMIDE HCL ORAL SOLN 1 MG/5 ML UDC PO PRN (21:55)
[2017-04-14] MEDS: VANCOMYCIN HCL 1,000 MG in DEXTROSE 5%-WATER 250 ML IV SCH (22:51)
[2017-04-15] MEDS: METRONIDAZOLE 500 MG/NS RTU 100 ML IV SCH ×4 (00:11→18:03)
[2017-04-15] MEDS: OXYCODONE-ACETAMINOPHEN 5-325 MG TABLET PO PRN ×4 (02:13→22:22)
[2017-04-15 04:56] LABS: HEMATOCRIT 40.7 % (36.0-47.0); HEMOGLOBIN 13.2 g/dL (12.0-15.5); HGB HCT DIFFERENCE -1.1; MEAN CORPUSCULAR HEMOGLOBIN 28.1 pg (27.0-33.4); MEAN CORPUSCULAR HGB CONC 32.5 g/dL (32.0-36.0); MEAN CORPUSCULAR VOLUME 87 fl (80-97); RED BLOOD COUNT 4.71 10^6/uL (3.72-5.28); RED CELL DISTRIBUTION WIDTH 16.1 % (11.5-14.0); WHITE BLOOD COUNT 25.7 10^3/uL (4.0-10.5)
[2017-04-15 05:20] LABS: BASOPHILS % (MANUAL) 0 % (0-2); EOSINOPHILS % (MANUAL) 0 % (0-6); LYMPHOCYTES % (MANUAL) 22 % (13-45); TOTAL CELLS COUNTED 100
[2017-04-15 05:21] LABS: ALANINE AMINOTRANSFERASE 80 U/L (9-52); ALKALINE PHOSPHATASE 171 U/L (38-126); ANION GAP 11 (5-19); ASPARTATE AMINO TRANSFERASE 42 U/L (14-36); BILIRUBIN,DIRECT 0.1 mg/dL (0.0-0.4); BILIRUBIN,TOTAL 0.3 mg/dL (0.2-1.3); BLOOD UREA NITROGEN 23 mg/dL (7-20); CALCIUM 8.8 mg/dL (8.4-10.2); CARBON DIOXIDE 26 mmol/L (22-30); CHLORIDE 122 mmol/L (98-107); GLUCOSE 137 mg/dL (75-110); POTASSIUM 3.8 mmol/L (3.6-5.0); SODIUM 158.5 mmol/L (137-145); TOTAL PROTEIN 5.6 g/dL (6.3-8.2)
[2017-04-15 05:23] LABS: ANISOCYTOSIS 1+; POIKILOCYTOSIS SLIGHT; POLYCHROMASIA SLIGHT; STOMATOCYTES SLIGHT; TARGET CELLS SLIGHT; TEAR DROP CELLS SLIGHT
[2017-04-15] MEDS: LANSOPRAZOLE 30 MG TAB.RAP.DR PO SCH (05:44)
[2017-04-15] MEDS: LOPERAMIDE HCL ORAL SOLN 1 MG/5 ML UDC PO PRN ×2 (05:44→15:06)
--- NOTE | 2017-04-15 08:27 | PDOC PROGRESS REPORT ---
Subjective Progress Note for:: 04/15/17 Subjective:: Her diarrhea persist. Tolerating oral feeding. No fever or chills. No chest pain or difficulty with breathing. Remain on IV antibiotic coverage with slight improvement in her leukocytosis. Reason For Visit: SEVERE RENAL FAILURE Physical Exam Vital Signs: Temp Pulse Resp BP Pulse Ox 98.1 F 82 19 148/63 H 100 04/15/17 03:42 04/15/17 07:00 04/15/17 03:42 04/15/17 03:42 04/15/17 03:42 Intake & Output 04/14/17 04/15/17 04/16/17 06:59 06:59 06:59 Intake Total 2493 1874 Output Total 1500 950 Balance 993 924 Weight 70.5 kg 75.8 kg Physical Exam: General appearance: PRESENT: no acute distress Head exam: PRESENT: atraumatic, normocephalic Eye exam: PRESENT: conjunctiva pink, EOMI, PERRLA. ABSENT: scleral icterus Mouth exam: PRESENT: dry mucosa Teeth exam: PRESENT: poor dentition Respiratory exam: PRESENT: clear to auscultation arlene, decreased breath sounds - at lung bases Cardiovascular exam: PRESENT: RRR. ABSENT: diastolic murmur, rubs, systolic murmur Vascular exam: PRESENT: normal capillary refill. ABSENT: pallor GI/Abdominal exam: PRESENT: normal bowel sounds, soft. ABSENT: distended, guarding, mass, organomegaly, rebound, tenderness Rectal exam: PRESENT: deferred Extremities exam: PRESENT: right BKA Neurological exam: PRESENT: alert, awake, oriented to person, oriented to place , oriented to time, oriented to situation, CN II-XII grossly intact. ABSENT: motor sensory deficit Psychiatric exam: PRESENT: appropriate affect, normal mood. ABSENT: homicidal ideation, suicidal ideation Skin exam: PRESENT: dry, warm, other - perineal region excoriation Results Laboratory Results: 04/15/17 04:27 04/15/17 04:27 04/14/17 04/15/17 04/15/17 14:30 04:27 04:27 WBC 25.7 H RBC 4.71 Hgb 13.2 Hct 40.7 MCV 87 MCH 28.1 MCHC 32.5 RDW 16.1 H Plt Count 195 Seg Neutrophils % Not Reportable Lymphocytes % Not Reportable Monocytes % Not Reportable Eosinophils % Not Reportable Basophils % Not Reportable Absolute Neutrophils Not Reportable Absolute Lymphocytes Not Reportable Absolute Monocytes Not Reportable Absolute Eosinophils Not Reportable Absolute Basophils Not Reportable Sodium 158.5 H Potassium 3.8 Chloride 122 H Carbon Dioxide 26 Anion Gap 11 BUN 23 H Creatinine 1.00 Est GFR ( Amer) > 60 Est GFR (Non-Af Amer) 56 L Glucose 137 H Calcium 8.8 Total Bilirubin 0.3 AST 42 H ALT 80 H Alkaline Phosphatase 171 H Total Protein 5.6 L Albumin 3.0 L Stool Occult Blood POSITIVE Impressions: Abdomen/Pelvis CT 04/10/17 15:01 IMPRESSION: Mild stranding in the perirectal fossa, nonspecific. No fluid collection or free air. Abdomen Ultrasound 04/11/17 00:00 IMPRESSION: 1. Cholelithiasis. 2. Otherwise unremarkable abdominal ultrasound. Assessment & Plan - Diagnosis (1) Acute renal failure due to tubular necrosis Is this a current diagnosis for this admission?: Yes (2) Acute diarrhea Is this a current diagnosis for this admission?: Yes (3) Toxic metabolic encephalopathy Is this a current diagnosis for this admission?: Yes (4) Probable sepsis Is this a current diagnosis for this admission?: Yes (5) Diabetes mellitus type 2 in obese Is this a current diagnosis for this admission?: Yes (6) HTN (hypertension) Qualifiers: Hypertension type: essential hypertension Qualified Code(s): I10 - Essential (primary) hypertension Is this a current diagnosis for this admission?: Yes (7) HLD (hyperlipidemia) Qualifiers: Hyperlipidemia type: pure hypercholesterolemia Qualified Code(s): E78.00 - Pure hypercholesterolemia, unspecified; E78.0 - Pure hypercholesterolemia Is this a current diagnosis for this admission?: Yes (8) Bipolar disorder Qualifiers: Current bipolar episode type: depressed Psychotic features: without psychotic features Is this a current diagnosis for this admission?: Yes - Time Time Spent with patient: 25-34 minutes Medications reviewed and adjusted accordingly: Yes Anticipated discharge: Home with Homehealth Within: Other - Inpatient Certification Based on my medical assessment, after consideration of the patient's comorbidities, presenting symptoms, or acuity I expect that the services needed warrant INPATIENT care.: Yes I certify that my determination is in accordance with my understanding of Medicare's requirements for reasonable and necessary INPATIENT services [42 CFR 412.3e].: Yes Medical Necessity: Need Close Monitoring Due to Risk of Patient Decompensation, Need For IV Fluids, Need For Continuous Telemetry Monitoring, Need for IV Antibiotics, Risk of Complication if Not Cared For in Hospital Post Hospital Care: D/C Zoogler Documentation - Plan Summary Plan Summary: Continue current medication management. Repeat stool C.difficile toxin titer level. Maintain on Imodium for persistent diarrhea.
[2017-04-15] MEDS: AMLODIPINE BESYLATE 10 MG TABLET PO SCH (09:03)
[2017-04-15] MEDS: CARVEDILOL 6.25 MG TABLET PO SCH ×2 (09:03→21:02)
[2017-04-15] MEDS: DEXTROSE 5%-WATER 1000 ML 1,000 ML IV PRN (09:03)
[2017-04-15] MEDS: CEFTRIAXONE 1 GM/D5W RTU 1 GM/50 ML RTUPB IV SCH (21:02)
[2017-04-15] MEDS: VANCOMYCIN HCL 1,000 MG in DEXTROSE 5%-WATER 250 ML IV SCH (22:17)
[2017-04-16] MEDS: METRONIDAZOLE 500 MG/NS RTU 100 ML IV SCH ×4 (00:28→19:50)
[2017-04-16] MEDS: INSULIN LISPRO 100 UNIT/ML 3 ML VIAL SUBCUT PRN (01:43)
[2017-04-16] MEDS: OXYCODONE-ACETAMINOPHEN 5-325 MG TABLET PO PRN (04:51)
[2017-04-16] MEDS: LANSOPRAZOLE 30 MG TAB.RAP.DR PO SCH (05:06)
[2017-04-16] MEDS: CARVEDILOL 6.25 MG TABLET PO SCH ×2 (10:46→22:48)
[2017-04-16] MEDS: AMLODIPINE BESYLATE 10 MG TABLET PO SCH (10:47)
[2017-04-16] MEDS: CEFTRIAXONE 1 GM/D5W RTU 1 GM/50 ML RTUPB IV SCH (20:14)
--- NOTE | 2017-04-16 22:14 | PDOC PROGRESS REPORT ---
Subjective Progress Note for:: 04/16/17 Subjective:: Patient was seen by the bedside she has excoriation of the gluteal area, admitted for the management of acute kidney injury associated with diarrhea sepsis Reason For Visit: SEVERE RENAL FAILURE Physical Exam Vital Signs: Temp Pulse Resp BP Pulse Ox 97.4 F 83 16 119/48 L 99 04/16/17 19:20 04/16/17 19:20 04/16/17 19:20 04/16/17 19:20 04/16/17 19:20 Intake & Output 04/15/17 04/16/17 04/17/17 06:59 06:59 06:59 Intake Total 2874 3683 618 Output Total 950 925 700 Balance 1924 0198 -82 Weight 75.8 kg 76.2 kg General appearance: PRESENT: no acute distress Eye exam: PRESENT: PERRLA Respiratory exam: PRESENT: clear to auscultation arlene Cardiovascular exam: PRESENT: +S1, +S2 GI/Abdominal exam: PRESENT: soft Extremities exam: PRESENT: right BKA Neurological exam: PRESENT: alert Results Laboratory Results: 04/15/17 04:27 04/15/17 04:27 04/10/17 21:55 Blood Blood Culture - Final NO GROWTH IN 5 DAYS 04/10/17 18:40 Blood Blood Culture - Final NO GROWTH IN 5 DAYS Impressions: Abdomen/Pelvis CT 04/10/17 15:01 IMPRESSION: Mild stranding in the perirectal fossa, nonspecific. No fluid collection or free air. Abdomen Ultrasound 04/11/17 00:00 IMPRESSION: 1. Cholelithiasis. 2. Otherwise unremarkable abdominal ultrasound. Assessment & Plan - Diagnosis (1) Acute renal failure due to tubular necrosis Is this a current diagnosis for this admission?: Yes (2) Acute diarrhea Is this a current diagnosis for this admission?: Yes (3) Toxic metabolic encephalopathy Is this a current diagnosis for this admission?: Yes (4) Probable sepsis Is this a current diagnosis for this admission?: Yes (5) HTN (hypertension) Qualifiers: Hypertension type: essential hypertension Qualified Code(s): I10 - Essential (primary) hypertension Is this a current diagnosis for this admission?: Yes (6) HLD (hyperlipidemia) Qualifiers: Hyperlipidemia type: pure hypercholesterolemia Qualified Code(s): E78.00 - Pure hypercholesterolemia, unspecified; E78.0 - Pure hypercholesterolemia Is this a current diagnosis for this admission?: Yes (7) Diabetes mellitus type 2 in obese Is this a current diagnosis for this admission?: Yes (8) Bipolar disorder Qualifiers: Current bipolar episode type: depressed Psychotic features: without psychotic features Is this a current diagnosis for this admission?: Yes - Plan Summary Plan Summary: Continue present treatment
[2017-04-16 22:39] LABS: HEMATOCRIT 37.3 % (36.0-47.0); HEMOGLOBIN 12.1 g/dL (12.0-15.5); MEAN CORPUSCULAR HEMOGLOBIN 27.9 pg (27.0-33.4); MEAN CORPUSCULAR HGB CONC 32.4 g/dL (32.0-36.0); MEAN CORPUSCULAR VOLUME 86 fl (80-97); RED BLOOD COUNT 4.32 10^6/uL (3.72-5.28); RED CELL DISTRIBUTION WIDTH 15.7 % (11.5-14.0); WHITE BLOOD COUNT 20.3 10^3/uL (4.0-10.5)
[2017-04-16] MEDS: VANCOMYCIN HCL 1,000 MG in DEXTROSE 5%-WATER 250 ML IV SCH (22:48)
[2017-04-16 22:57] LABS: ALANINE AMINOTRANSFERASE 59 U/L (9-52); ALBUMIN 2.8 g/dL (3.5-5.0); ALKALINE PHOSPHATASE 183 U/L (38-126); ANION GAP 8 (5-19); ASPARTATE AMINO TRANSFERASE 30 U/L (14-36); BILIRUBIN,TOTAL < 0.1 mg/dL (0.2-1.3); BLOOD UREA NITROGEN 17 mg/dL (7-20); CALCIUM 8.4 mg/dL (8.4-10.2); CARBON DIOXIDE 26 mmol/L (22-30); CHLORIDE 112 mmol/L (98-107); CREATININE RESULT 0.79 mg/dL (0.52-1.25); GLUCOSE 105 mg/dL (75-110); POTASSIUM 3.8 mmol/L (3.6-5.0); SODIUM 146.2 mmol/L (137-145); TOTAL PROTEIN 5.4 g/dL (6.3-8.2)
[2017-04-16 23:02] LABS: ABSOLUTE EOSINOPHILS# (MANUAL) 0.4 10^3/uL (0.0-0.6); BASOPHILS % (MANUAL) 0 % (0-2); EOSINOPHILS % (MANUAL) 2 % (0-6); LYMPHOCYTES % (MANUAL) 17 % (13-45); TOTAL CELLS COUNTED 100
[2017-04-16 23:05] LABS: ANISOCYTOSIS SLIGHT; TOXIC GRANULATION SLIGHT
[2017-04-17] MEDS: METRONIDAZOLE 500 MG/NS RTU 100 ML IV SCH ×4 (00:50→17:27)
[2017-04-17] MEDS: OXYCODONE-ACETAMINOPHEN 5-325 MG TABLET PO PRN (03:46)
[2017-04-17] MEDS: LANSOPRAZOLE 30 MG TAB.RAP.DR PO SCH (06:25)
[2017-04-17] MEDS: CARVEDILOL 6.25 MG TABLET PO SCH ×2 (09:35→22:18)
[2017-04-17] MEDS: AMLODIPINE BESYLATE 10 MG TABLET PO SCH (09:35)
[2017-04-17] MEDS: CEFTRIAXONE 1 GM/D5W RTU 1 GM/50 ML RTUPB IV SCH (18:24)
[2017-04-17] MEDS: DEXTROSE 5%-WATER 1000 ML 1,000 ML IV PRN (20:08)
--- NOTE | 2017-04-17 20:50 | PDOC PROGRESS REPORT ---
Subjective Progress Note for:: 04/17/17 Subjective:: Patient was admitted when she presented with severe diarrhea associated with acute kidney injury most likely due to volume loss from diarrhea she also has severe exploration of the gluteal area, she was empirically treated with IV Flagyl and vancomycin. The stool study so far negative for C. difficile toxin, there is leukocytosis but no definitive pathogen was identified Reason For Visit: SEVERE RENAL FAILURE Physical Exam Vital Signs: Temp Pulse Resp BP Pulse Ox 97.8 F 75 18 135/50 H 100 04/17/17 12:20 04/17/17 14:00 04/17/17 12:20 04/17/17 12:20 04/17/17 12:20 Intake & Output 04/16/17 04/17/17 04/18/17 06:59 06:59 06:59 Intake Total 3683 2362 1200 Output Total 925 1600 800 Balance 2758 762 400 Weight 76.2 kg General appearance: PRESENT: no acute distress, well-developed, well-nourished Head exam: PRESENT: atraumatic, normocephalic Eye exam: PRESENT: conjunctiva pink, EOMI, PERRLA Mouth exam: PRESENT: moist, tongue midline Neck exam: PRESENT: full ROM Respiratory exam: PRESENT: clear to auscultation arlene Cardiovascular exam: PRESENT: RRR, +S1, +S2 Pulses: PRESENT: normal dorsalis pedis pul, +2 pedal pulses bilateral Vascular exam: PRESENT: normal capillary refill GI/Abdominal exam: PRESENT: normal bowel sounds, soft Rectal exam: PRESENT: deferred Neurological exam: PRESENT: alert, awake, oriented to person, oriented to place , oriented to time, oriented to situation, CN II-XII grossly intact Psychiatric exam: PRESENT: appropriate affect, normal mood Skin exam: PRESENT: dry, intact, warm. ABSENT: cyanosis, rash Results Laboratory Results: 04/16/17 22:30 04/16/17 22:30 04/16/17 04/16/17 04/16/17 21:35 22:30 22:30 WBC 20.3 H RBC 4.32 Hgb 12.1 Hct 37.3 MCV 86 MCH 27.9 MCHC 32.4 RDW 15.7 H Plt Count 152 Seg Neutrophils % Not Reportable Lymphocytes % Not Reportable Monocytes % Not Reportable Eosinophils % Not Reportable Basophils % Not Reportable Absolute Neutrophils Not Reportable Absolute Lymphocytes Not Reportable Absolute Monocytes Not Reportable Absolute Eosinophils Not Reportable Absolute Basophils Not Reportable Sodium 146.2 H Potassium 3.8 Chloride 112 H Carbon Dioxide 26 Anion Gap 8 BUN 17 Creatinine 0.79 Est GFR ( Amer) > 60 Est GFR (Non-Af Amer) > 60 Glucose 105 Calcium 8.4 Total Bilirubin < 0.1 L AST 30 ALT 59 H Alkaline Phosphatase 183 H Total Protein 5.4 L Albumin 2.8 L Stool for White Cells NO WBCs SEEN Impressions: Abdomen/Pelvis CT 04/10/17 15:01 IMPRESSION: Mild stranding in the perirectal fossa, nonspecific. No fluid collection or free air. Abdomen Ultrasound 04/11/17 00:00 IMPRESSION: 1. Cholelithiasis. 2. Otherwise unremarkable abdominal ultrasound. Assessment & Plan - Diagnosis (1) Acute renal failure due to tubular necrosis Is this a current diagnosis for this admission?: Yes (2) Acute diarrhea Is this a current diagnosis for this admission?: Yes (3) Toxic metabolic encephalopathy Is this a current diagnosis for this admission?: Yes (4) Probable sepsis Is this a current diagnosis for this admission?: Yes (5) HTN (hypertension) Qualifiers: Hypertension type: essential hypertension Qualified Code(s): I10 - Essential (primary) hypertension Is this a current diagnosis for this admission?: Yes (6) HLD (hyperlipidemia) Qualifiers: Hyperlipidemia type: pure hypercholesterolemia Qualified Code(s): E78.00 - Pure hypercholesterolemia, unspecified; E78.0 - Pure hypercholesterolemia Is this a current diagnosis for this admission?: Yes (7) Diabetes mellitus type 2 in obese Is this a current diagnosis for this admission?: Yes (8) Bipolar disorder Qualifiers: Current bipolar episode type: depressed Psychotic features: without psychotic features Is this a current diagnosis for this admission?: Yes
[2017-04-17] MEDS: VANCOMYCIN HCL 1,000 MG in DEXTROSE 5%-WATER 250 ML IV SCH (22:17)
[2017-04-17 22:35] LABS: CREATININE RESULT 0.79 mg/dL (0.52-1.25)
[2017-04-18] MEDS: METRONIDAZOLE 500 MG/NS RTU 100 ML IV SCH ×3 (00:10→11:57)
[2017-04-18] MEDS: LANSOPRAZOLE 30 MG TAB.RAP.DR PO SCH (05:48)
[2017-04-18] MEDS: INSULIN LISPRO 100 UNIT/ML 3 ML VIAL SUBCUT PRN ×4 (05:48→17:37)
[2017-04-18] MEDS: CARVEDILOL 6.25 MG TABLET PO SCH ×2 (10:21→22:58)
[2017-04-18] MEDS: AMLODIPINE BESYLATE 10 MG TABLET PO SCH (10:22)
[2017-04-18] MEDS: DEXTROSE 5%-WATER 1000 ML 1,000 ML IV PRN (10:51)
[2017-04-18] MEDS ORDERED: VANCOMYCIN HCL 750 MG in DEXTROSE 5%-WATER 250 ML IV ONE (12:00)
--- NOTE | 2017-04-18 16:44 | PDOC PROGRESS REPORT ---
Subjective Progress Note for:: 04/18/17 Subjective:: Patient seen by the bedside, the diarrhea is less Reason For Visit: SEVERE RENAL FAILURE Physical Exam Vital Signs: Temp Pulse Resp BP Pulse Ox 97.6 F 77 18 119/67 100 04/18/17 07:57 04/18/17 14:00 04/18/17 07:57 04/18/17 07:57 04/18/17 07:57 Intake & Output 04/17/17 04/18/17 04/19/17 06:59 06:59 06:59 Intake Total 2362 2450 614 Output Total 1750 955 5424 Balance 762 1650 -786 General appearance: PRESENT: no acute distress, well-developed, well-nourished Head exam: PRESENT: atraumatic, normocephalic Eye exam: PRESENT: conjunctiva pink, EOMI, PERRLA Ear exam: PRESENT: normal external ear exam Mouth exam: PRESENT: moist, tongue midline Neck exam: PRESENT: full ROM Respiratory exam: PRESENT: clear to auscultation arlene Cardiovascular exam: PRESENT: RRR, +S1, +S2 Pulses: PRESENT: normal dorsalis pedis pul, +2 pedal pulses bilateral Vascular exam: PRESENT: normal capillary refill GI/Abdominal exam: PRESENT: normal bowel sounds, soft Rectal exam: PRESENT: deferred Neurological exam: PRESENT: alert, awake, oriented to person, oriented to place , oriented to time, oriented to situation, CN II-XII grossly intact Psychiatric exam: PRESENT: appropriate affect, normal mood Skin exam: PRESENT: dry, intact, warm. ABSENT: cyanosis, rash Results Laboratory Results: 04/18/17 15:35 04/18/17 15:35 04/17/17 04/18/17 04/18/17 21:55 15:35 15:35 WBC Cancelled RBC Cancelled Hgb Cancelled Hct Cancelled MCV Cancelled MCH Cancelled MCHC Cancelled RDW Cancelled Plt Count Cancelled Seg Neutrophils % Cancelled Lymphocytes % Cancelled Monocytes % Cancelled Eosinophils % Cancelled Basophils % Cancelled Absolute Neutrophils Cancelled Absolute Lymphocytes Cancelled Absolute Monocytes Cancelled Absolute Eosinophils Cancelled Absolute Basophils Cancelled Sodium Cancelled Potassium Cancelled Chloride Cancelled Carbon Dioxide Cancelled Anion Gap Cancelled BUN Cancelled Creatinine 0.79 Cancelled Est GFR ( Amer) > 60 Cancelled Est GFR (Non-Af Amer) > 60 Cancelled Glucose Cancelled Calcium Cancelled Total Bilirubin Cancelled AST Cancelled ALT Cancelled Alkaline Phosphatase Cancelled Total Protein Cancelled Albumin Cancelled Impressions: Abdomen/Pelvis CT 04/10/17 15:01 IMPRESSION: Mild stranding in the perirectal fossa, nonspecific. No fluid collection or free air. Abdomen Ultrasound 04/11/17 00:00 IMPRESSION: 1. Cholelithiasis. 2. Otherwise unremarkable abdominal ultrasound. Assessment & Plan - Diagnosis (1) Acute renal failure due to tubular necrosis Is this a current diagnosis for this admission?: Yes (2) Acute diarrhea Is this a current diagnosis for this admission?: Yes (3) Toxic metabolic encephalopathy Is this a current diagnosis for this admission?: Yes (4) Probable sepsis Is this a current diagnosis for this admission?: Yes (5) HTN (hypertension) Qualifiers: Hypertension type: essential hypertension Qualified Code(s): I10 - Essential (primary) hypertension Is this a current diagnosis for this admission?: Yes (6) HLD (hyperlipidemia) Qualifiers: Hyperlipidemia type: pure hypercholesterolemia Qualified Code(s): E78.00 - Pure hypercholesterolemia, unspecified; E78.0 - Pure hypercholesterolemia Is this a current diagnosis for this admission?: Yes (7) Diabetes mellitus type 2 in obese Is this a current diagnosis for this admission?: Yes (8) Bipolar disorder Qualifiers: Current bipolar episode type: depressed Psychotic features: without psychotic features Is this a current diagnosis for this admission?: Yes
[2017-04-18 17:36] LABS: ABSOLUTE EOSINOPHILS # (AUTO) 0.3 10^3/uL (0.0-0.6); ABSOLUTE LYMPHOCYTES (AUTO) 3.2 10^3/uL (0.5-4.7); ABSOLUTE NEUT (AUTO) 8.1 10^3/uL (1.7-8.2); BASOPHILS % (AUTO) 0.3 % (0-2); EOSINOPHILS % (AUTO) 2.2 % (0-6); HEMATOCRIT 36.5 % (36.0-47.0); HEMOGLOBIN 11.7 g/dL (12.0-15.5); HGB HCT DIFFERENCE -1.4; LYMPHOCYTES % (AUTO) 25.5 % (13-45); MEAN CORPUSCULAR HEMOGLOBIN 27.8 pg (27.0-33.4); MEAN CORPUSCULAR HGB CONC 32.1 g/dL (32.0-36.0); MEAN CORPUSCULAR VOLUME 86 fl (80-97); MONOCYTES % (AUTO) 7.6 % (3-13); RED BLOOD COUNT 4.22 10^6/uL (3.72-5.28); RED CELL DISTRIBUTION WIDTH 15.8 % (11.5-14.0); SEGMENTED NEUTROPHILS % (AUTO) 64.4 % (42-78); WHITE BLOOD COUNT 12.6 10^3/uL (4.0-10.5)
[2017-04-18 17:55] LABS: ALANINE AMINOTRANSFERASE 42 U/L (9-52); ALBUMIN 2.8 g/dL (3.5-5.0); ALKALINE PHOSPHATASE 170 U/L (38-126); ANION GAP 9 (5-19); ASPARTATE AMINO TRANSFERASE 23 U/L (14-36); BILIRUBIN,DIRECT 0.1 mg/dL (0.0-0.4); BILIRUBIN,TOTAL 0.1 mg/dL (0.2-1.3); BLOOD UREA NITROGEN 10 mg/dL (7-20); CALCIUM 8.4 mg/dL (8.4-10.2); CARBON DIOXIDE 24 mmol/L (22-30); CHLORIDE 109 mmol/L (98-107); CREATININE RESULT 0.74 mg/dL (0.52-1.25); GLUCOSE 176 mg/dL (75-110); POTASSIUM 3.9 mmol/L (3.6-5.0); SODIUM 142.4 mmol/L (137-145); TOTAL PROTEIN 5.6 g/dL (6.3-8.2)
[2017-04-18] MEDS: CEFTRIAXONE 1 GM/D5W RTU 1 GM/50 ML RTUPB IV SCH (18:27)
[2017-04-18] MEDS ORDERED: VANCOMYCIN HCL 750 MG in DEXTROSE 5%-WATER 250 ML IV SCH (22:00)
[2017-04-19] MEDS: LANSOPRAZOLE 30 MG TAB.RAP.DR PO SCH (05:12)
[2017-04-19 08:13] LABS: HSV SOURCE GLUTEAL
[2017-04-19] MEDS: CARVEDILOL 6.25 MG TABLET PO SCH ×2 (09:14→21:11)
[2017-04-19] MEDS: INSULIN LISPRO 100 UNIT/ML 3 ML VIAL SUBCUT PRN ×2 (09:14→17:55)
[2017-04-19] MEDS: AMLODIPINE BESYLATE 10 MG TABLET PO SCH (09:18)
--- NOTE | 2017-04-19 13:46 | PDOC DISCHARGE SUMMARY ---
General - Admit/Disc Date/PCP Admission Date/Primary Care Provider: 04/10/17 17:24 SONYADIXIE LOTT Discharge Date: 04/19/17 - Discharge Diagnosis (1) Acute kidney injury Is this a current diagnosis for this admission?: Yes (2) Acute renal failure due to tubular necrosis Is this a current diagnosis for this admission?: Yes (3) Acute diarrhea Is this a current diagnosis for this admission?: Yes (4) Toxic metabolic encephalopathy Is this a current diagnosis for this admission?: Yes (5) Probable sepsis Is this a current diagnosis for this admission?: Yes (6) HTN (hypertension) Is this a current diagnosis for this admission?: Yes (7) HLD (hyperlipidemia) Is this a current diagnosis for this admission?: Yes (8) Diabetes mellitus type 2 in obese Is this a current diagnosis for this admission?: Yes (9) Bipolar disorder Is this a current diagnosis for this admission?: Yes (10) Excoriation of buttock Is this a current diagnosis for this admission?: Yes - Additional Information Discharge Diet: Diabetic Prescriptions: Diphenoxylate HCl/Atropine [Lomotil Tablet] 1 each PO QID #60 tablet Home Medications: Amlodipine Besylate [Norvasc 10 mg Tablet] 10 mg PO DAILY 04/10/17 Aspirin [Aspirin EC] 81 mg PO DAILY 04/10/17 Atorvastatin Calcium [Lipitor 20 mg Tablet] 20 mg PO QHS 04/10/17 Carvedilol [Coreg 6.25 mg Tablet] 6.25 mg PO Q12 04/10/17 Citalopram Hydrobromide [Citalopram HBr] 20 mg PO DAILY 04/10/17 Donepezil HCl [Aricept 5 mg Tablet] 5 mg PO DAILY 04/10/17 Gabapentin [Neurontin 300 mg Capsule] 300 mg PO QHS 04/10/17 Insulin Glargine,Hum.rec.anlog [Lantus Solostar] 15 unit SQ DAILY 04/10/17 Mirtazapine [Remeron 15 mg Tablet] 15 mg PO QHS 04/10/17 Quetiapine Fumarate [Seroquel] 400 mg PO DAILY 04/10/17 Trazodone HCl [Desyrel] 150 mg PO QHS 04/10/17 Valsartan [Diovan 160 mg Tablet] 160 mg PO DAILY 04/10/17 Diphenoxylate HCl/Atropine [Lomotil Tablet] 1 each PO QID #60 tablet 04/19/17 History of Present Illness History of Present Illness: DEREK LEÓN is a 66 year old female she was admitted on April 10, 2017 when she presented with profuse diarrhea associated with acute kidney injury she has severe excoriation of the buttock, she stated that the diarrhea started soon after she had a colonoscopy roughly about a week ago. Hospital Course Hospital Course: She had severely elevated serum creatinine, 9 she was vigorously hydrated with normal saline with gnosticist of normal kidney function. She was empirically treated with IV antibiotic, Flagyl and vancomycin, the stool culture was negative for Clostridium difficile toxin, no pathogen was isolated from the stool. She has a history of right below-knee amputation, she is a diabetic, she unfortunately continues to smoke cigarettes. She has severe excoriation of the buttock, Fish catheter was inserted to divert urine from macerating the excoriated buttock. There was some improvement of excoriation with the antibiotic and topical cream that was applied in the hospital. Physical Exam Vital Signs: Temp Pulse Resp BP Pulse Ox 98.0 F 85 16 121/60 100 04/19/17 12:00 04/19/17 12:00 04/19/17 12:00 04/19/17 12:00 04/19/17 12:00 Intake & Output 04/18/17 04/19/17 04/20/17 06:59 06:59 06:59 Intake Total 2450 3896 675 Output Total 800 3700 1100 Balance 1650 196 -425 Weight 78.6 kg General appearance: PRESENT: no acute distress, well-developed, well-nourished Head exam: PRESENT: atraumatic, normocephalic Eye exam: PRESENT: conjunctiva pink, EOMI, PERRLA Ear exam: PRESENT: normal external ear exam Mouth exam: PRESENT: moist, tongue midline Neck exam: PRESENT: full ROM Respiratory exam: PRESENT: clear to auscultation arlene Cardiovascular exam: PRESENT: RRR, +S1, +S2 Pulses: PRESENT: normal dorsalis pedis pul, +2 pedal pulses bilateral Vascular exam: PRESENT: normal capillary refill GI/Abdominal exam: PRESENT: normal bowel sounds, soft Rectal exam: PRESENT: deferred Extremities exam: PRESENT: right BKA, other - Severe excoriation of the buttock Neurological exam: PRESENT: alert, awake, oriented to person, oriented to place , oriented to time, oriented to situation, CN II-XII grossly intact Psychiatric exam: PRESENT: appropriate affect, normal mood Skin exam: PRESENT: dry, intact, warm Results Laboratory Results: 04/18/17 17:13 04/18/17 17:13 04/18/17 04/18/17 04/18/17 15:35 15:35 17:13 WBC Cancelled RBC Cancelled Hgb Cancelled Hct Cancelled MCV Cancelled MCH Cancelled MCHC Cancelled RDW Cancelled Plt Count Cancelled Seg Neutrophils % Cancelled Lymphocytes % Cancelled Monocytes % Cancelled Eosinophils % Cancelled Basophils % Cancelled Absolute Neutrophils Cancelled Absolute Lymphocytes Cancelled Absolute Monocytes Cancelled Absolute Eosinophils Cancelled Absolute Basophils Cancelled Sodium Cancelled 142.4 Potassium Cancelled 3.9 Chloride Cancelled 109 H Carbon Dioxide Cancelled 24 Anion Gap Cancelled 9 BUN Cancelled 10 Creatinine Cancelled 0.74 Est GFR ( Amer) Cancelled > 60 Est GFR (Non-Af Amer) Cancelled > 60 Glucose Cancelled 176 H Calcium Cancelled 8.4 Total Bilirubin Cancelled 0.1 L AST Cancelled 23 ALT Cancelled 42 Alkaline Phosphatase Cancelled 170 H Total Protein Cancelled 5.6 L Albumin Cancelled 2.8 L 04/18/17 17:13 WBC 12.6 H RBC 4.22 Hgb 11.7 L Hct 36.5 MCV 86 MCH 27.8 MCHC 32.1 RDW 15.8 H Plt Count 162 Seg Neutrophils % 64.4 Lymphocytes % 25.5 Monocytes % 7.6 Eosinophils % 2.2 Basophils % 0.3 Absolute Neutrophils 8.1 Absolute Lymphocytes 3.2 Absolute Monocytes 1.0 Absolute Eosinophils 0.3 Absolute Basophils 0.0 Sodium Potassium Chloride Carbon Dioxide Anion Gap BUN Creatinine Est GFR ( Amer) Est GFR (Non-Af Amer) Glucose Calcium Total Bilirubin AST ALT Alkaline Phosphatase Total Protein Albumin 04/16/17 21:35 Stool - Stool - Final 04/16/17 21:35 Stool - Stool Stool Culture - Final C.albicans/C.dubliniensis Impressions: Abdomen/Pelvis CT 04/10/17 15:01 IMPRESSION: Mild stranding in the perirectal fossa, nonspecific. No fluid collection or free air. Abdomen Ultrasound 04/11/17 00:00 IMPRESSION: 1. Cholelithiasis. 2. Otherwise unremarkable abdominal ultrasound.
[2017-04-19] MEDS ORDERED: DIPHENOXYLATE HCL/ATROP SULF 2.5-0.025 MG TABLET PO ONE (14:45)
[2017-04-19 15:37] LABS: HSV I DNA Negative (Negative)
[2017-04-19] MEDS: CEFTRIAXONE 1 GM/D5W RTU 1 GM/50 ML RTUPB IV SCH (17:51)
[2017-04-19 20:14] VITALS: BP 139/60
== END 2017-04-19 21:45 | disposition home or self-care (01) | DRG 682 ==
LOC: ER 14:57 → EH 17:24 → 3W 20:06 → 3S 04-16 05:01
PROVIDERS: ADMIT Internal Medicine Geriatric Medicine; ATTEND Internal Medicine Geriatric Medicine
DX: N17.0 Acute kidney failure with tubular necrosis (principal); G92 Toxic encephalopathy; A41.9 Sepsis, unspecified organism; R19.7 Diarrhea, unspecified; S30.810D Abrasion of lower back and pelvis, subsequent encounter; E86.0 Dehydration; E11.9 Type 2 diabetes mellitus without complications; E78.00 Pure hypercholesterolemia, unspecified; F31.9 Bipolar disorder, unspecified; I10 Essential (primary) hypertension; Z79.82 Long term (current) use of aspirin; Z79.899 Other long term (current) drug therapy; Z79.4 Long term (current) use of insulin; Z89.511 Acquired absence of right leg below knee; Z88.0 Allergy status to penicillin; Z88.8 Allergy status to other drugs, medicaments and biological substances; F17.210 Nicotine dependence, cigarettes, uncomplicated
CPT/HCPCS: 36415; 51702; 74176; 76700; 80048; 80053; 80076; 80202; 81001; 82272; 82565; 82962; 83605; 85025; 85610; 85730; 87040; 87045; 87086; 87205; 87250; 87493; 87529; 89055; 96374; 96375; 99291; J0696; J1815; J2930; J3370; J3490; J7030; J7060; S0028

== ENCOUNTER → 2017-05-07 | Outpatient (CLI) | payer OTHER, BC ==
--- NOTE | 2017-05-08 08:12 | XCELERA REPORT ---
[address] [address] Lower Extremity Venous Evaluation Name: DEREK LEÓN Age: 66 yrs Gender: Female : 1950 Patient Status: Outpatient Patient Location: RAD Study Date: 05/07/2017 05:48 PM Procedure: Color flow and duplex imaging of the veins of the left lower extremity as well as the right Common Femoral vein. Reason For Study: LLE SWELLING Ordering Physician: SONYA LOTT Performed By: Era Oliver Right Sided Venous Evaluation The right common femoral vein is fully compressible. Spontaneous and phasic flow is present in the right common femoral vein. Left Sided Venous Evaluation Normal vessel filling wall to wall, compression and augmentation as well as Colour flow down to the infrageniculate veins. Interpretation Summary No duplex evidence of DVT or obstruction in the left lower extremity nor in the right Common Femoral vein. : SONYA LOTT > Freedom Gibbs
== END ==
LOC: RAD 17:30
PROVIDERS: ATTEND Internal Medicine Geriatric Medicine
DX: R22.42 Localized swelling, mass and lump, left lower limb (principal)
CPT/HCPCS: 93971

== ENCOUNTER 2018-01-29 10:39 | Emergency (ER) | payer BC, MEDICARE, OTHER ==
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
[2018-01-29 11:27] LABS: ABSOLUTE BASOPHILS # (AUTO) 0.1 10^3/uL (0.0-0.2); ABSOLUTE EOSINOPHILS # (AUTO) 0.1 10^3/uL (0.0-0.6); ABSOLUTE LYMPHOCYTES (AUTO) 3.2 10^3/uL (0.5-4.7); ABSOLUTE MONOCYTES (AUTO) 0.8 10^3/uL (0.1-1.4); ABSOLUTE NEUT (AUTO) 8.4 10^3/uL (1.7-8.2); BASOPHILS % (AUTO) 0.8 % (0-2); EOSINOPHILS % (AUTO) 0.8 % (0-6); HEMATOCRIT 46.9 % (36.0-47.0); HEMOGLOBIN 15.6 g/dL (12.0-15.5); LYMPHOCYTES % (AUTO) 25.7 % (13-45); MEAN CORPUSCULAR HEMOGLOBIN 28.4 pg (27.0-33.4); MEAN CORPUSCULAR HGB CONC 33.2 g/dL (32.0-36.0); MEAN CORPUSCULAR VOLUME 86 fl (80-97); PLATELET COUNT 221 10^3/uL (150-450); RED BLOOD COUNT 5.47 10^6/uL (3.72-5.28); RED CELL DISTRIBUTION WIDTH 15.3 % (11.5-14.0); SEGMENTED NEUTROPHILS % (AUTO) 66.7 % (42-78); TOTAL CELLS COUNTED % (AUTO) 100 %; WHITE BLOOD COUNT 12.6 10^3/uL (4.0-10.5)
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
[2018-01-29 11:42] LABS: ACETAMINOPHEN < 10 ug/mL (10-30); ALANINE AMINOTRANSFERASE 44 U/L (9-52); ALCOHOL < 10 mg/dL (NONE DETECTED); ALKALINE PHOSPHATASE 159 U/L (38-126); ANION GAP 12 (5-19); ASPARTATE AMINO TRANSFERASE 31 U/L (14-36); BILIRUBIN,DIRECT 0.3 mg/dL (0.0-0.4); BILIRUBIN,TOTAL 0.5 mg/dL (0.2-1.3); BLOOD UREA NITROGEN 19 mg/dL (7-20); CALCIUM 9.7 mg/dL (8.4-10.2); CARBON DIOXIDE 22 mmol/L (22-30); CHLORIDE 109 mmol/L (98-107); GLUCOSE 144 mg/dL (75-110); POTASSIUM 4.3 mmol/L (3.6-5.0); SALICYLATE < 1.0 mg/dL (2.0-20.0); SODIUM 142.5 mmol/L (137-145); TOTAL PROTEIN 7.1 g/dL (6.3-8.2)
--- NOTE | 2018-01-29 12:08 | RADIOLOGY REPORT (SQ) ---
EXAM DESCRIPTION: CT HEAD WITHOUT COMPLETED DATE/TIME: 01/29/2018 11:58 am REASON FOR STUDY: confusion COMPARISON: None. TECHNIQUE: Axial images acquired through the brain without intravenous contrast. Images reviewed wi th bone, brain and subdural windows. Additional sagittal and coronal reconstructions were generated. Images stored on PACS. All CT scanners at this facility use dose modulation, iterative reconstruction, and/or weight based d osing when appropriate to reduce radiation dose to as low as reasonably achievable (ALARA). [facility]: Dose Right [facility]: CareDose [facility]: Dose Right [facility]: Teradose 4D [facility]: V I O RADIATION DOSE: CT Rad equipment meets quality standard of care and radiation dose reduction techniq ues were employed. CTDIvol: 53.2 mGy. DLP: 1150 mGy-cm. mGy. LIMITATIONS: Metal artifact. FINDINGS: VENTRICLES: Normal size and contour. CEREBRUM: No masses. No hemorrhage. No midline shift. No evidence for acute infarction. Normal gra y/white matter differentiation. No areas of low density in the white matter. CEREBELLUM: No masses. No hemorrhage. No alteration of density. No evidence for acute infarction. EXTRAAXIAL SPACES: No fluid collections. No masses. ORBITS AND GLOBE: No intra- or extraconal masses. Normal contour of globe without masses. CALVARIUM: No fracture. PARANASAL SINUSES: No fluid or mucosal thickening. SOFT TISSUES: Round metallic densities in the soft tissues over the right temporal scalp. OTHER: No other significant finding. IMPRESSION: NORMAL BRAIN CT WITHOUT CONTRAST. EVIDENCE OF ACUTE STROKE: NO. COMMENT: Quality ID # [id number]: Final reports with documentation of one or more dose reduction techniques (e.g., Automated exposure control, adjustment of the mA and/or kV according to patient size, use of iterative reconstruction technique) TECHNICAL DOCUMENTATION: JOB ID: [id number] [employer]- All Rights Reserved Reading location - IP/workstation name: [email or web address]-[email or web address]
[2018-01-29] MEDS ORDERED: DIPH/PERTUSS(ACELL)/TETANUS VAC/PF 0.5 ML SYR (>=10YO) IM ONE (12:48)
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
[2018-01-29] MEDS: GABAPENTIN 300 MG CAPSULE PO SCH (16:36)
[2018-01-29] MEDS: BENZTROPINE MESYLATE INJ 2 MG/2 ML AMPULE IM SCH (16:36)
[2018-01-29 16:56] LABS: APPEARANCE,URINE SLIGHTLY-CLOUDY; BILIRUBIN,URINE NEGATIVE (NEGATIVE); COLOR,URINE YELLOW; GLUCOSE, URINE NEGATIVE (NEGATIVE); KETONES,URINE TRACE mg/dL (NEGATIVE); LEUKOCYTE ESTERASE,URINE NEGATIVE (NEGATIVE); NITRITE,URINE NEGATIVE (NEGATIVE); PROTEIN,URINE NEGATIVE (NEGATIVE); URINE SPECIFIC GRAVITY 1.027; UROBILINOGEN,URINE NEGATIVE mg/dL (<2.0)
[2018-01-29] MEDS: OLANZAPINE 5 MG TABLET PO SCH (18:18)
[2018-01-29] MEDS: DIVALPROEX SODIUM 250 MG TABLET.DR PO SCH (18:18)
[2018-01-29 21:05] LABS: URINE AMPHETAMINES SCREEN NEGATIVE; URINE BARBITURATES SCREEN NEGATIVE; URINE BENZODIAZEPINES SCREEN NEGATIVE; URINE COCAINE SCREEN NEGATIVE; URINE MARIJUANA (THC) SCREEN NEGATIVE; URINE METHADONE SCREEN NEGATIVE; URINE PHENCYCLIDINE SCREEN NEGATIVE
[2018-01-29] MEDS ORDERED: GABAPENTIN 300 MG CAPSULE PO SCH (22:00)
[2018-01-29] MEDS: CARVEDILOL 6.25 MG TABLET PO SCH (23:31)
[2018-01-29] MEDS: ATORVASTATIN CALCIUM 20 MG TABLET PO SCH (23:31)
[2018-01-30] MEDS ORDERED: INSULIN GLARGINE,HUM.REC.ANLOG 1,000 UNIT/10 ML UNIT SUBCUT SCH (08:00)
[2018-01-30] MEDS ORDERED: IRBESARTAN PO SCH (08:00)
[2018-01-30] MEDS: LOSARTAN POTASSIUM 50 MG TABLET PO SCH (08:24)
[2018-01-30] MEDS: INSULIN GLARGINE,HUM.REC.ANLOG 300 UNIT/3 ML INSULN.PEN SUBCUT SCH (08:25)
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
[2018-01-30] MEDS: AMLODIPINE BESYLATE 10 MG TABLET PO SCH (10:31)
[2018-01-30] MEDS: BENZTROPINE MESYLATE INJ 2 MG/2 ML AMPULE IM SCH (10:31)
[2018-01-30] MEDS: GABAPENTIN 300 MG CAPSULE PO SCH ×3 (10:31→19:11)
[2018-01-30] MEDS: CARVEDILOL 6.25 MG TABLET PO SCH ×2 (10:32→22:51)
[2018-01-30] MEDS: DIVALPROEX SODIUM 250 MG TABLET.DR PO SCH ×2 (10:32→19:10)
[2018-01-30] MEDS: OLANZAPINE 5 MG TABLET PO SCH ×2 (10:33→19:10)
[2018-01-30] MEDS: ASPIRIN 81 MG TABLET, ENT COATED PO SCH (10:33)
--- NOTE | 2018-01-30 19:25 | EKG REPORT ---
SEVERITY:- BORDERLINE ECG - SINUS RHYTHM BORDERLINE LEFT AXIS DEVIATION CONSIDER ANTERIOR INFARCT : Confirmed by: Allie Jay 30-Jan-2018 19:24:10
[2018-01-30] MEDS: ATORVASTATIN CALCIUM 20 MG TABLET PO SCH (22:53)
[2018-01-31] MEDS: INSULIN GLARGINE,HUM.REC.ANLOG 300 UNIT/3 ML INSULN.PEN SUBCUT SCH (08:16)
[2018-01-31] MEDS: LOSARTAN POTASSIUM 50 MG TABLET PO SCH (08:21)
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
[2018-01-31] MEDS: AMLODIPINE BESYLATE 10 MG TABLET PO SCH (12:25)
[2018-01-31] MEDS: OLANZAPINE 5 MG TABLET PO SCH ×2 (12:25→19:10)
[2018-01-31] MEDS: CARVEDILOL 6.25 MG TABLET PO SCH ×2 (12:25→21:58)
[2018-01-31] MEDS: DIVALPROEX SODIUM 250 MG TABLET.DR PO SCH ×2 (12:25→19:10)
[2018-01-31] MEDS: BENZTROPINE MESYLATE INJ 2 MG/2 ML AMPULE IM SCH (12:26)
[2018-01-31] MEDS: GABAPENTIN 300 MG CAPSULE PO SCH ×4 (12:26→19:10)
[2018-01-31] MEDS: ASPIRIN 81 MG TABLET, ENT COATED PO SCH (12:26)
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
[2018-01-31] MEDS: ATORVASTATIN CALCIUM 20 MG TABLET PO SCH (21:57)
[2018-02-01] MEDS: LOSARTAN POTASSIUM 50 MG TABLET PO SCH (07:42)
[2018-02-01] MEDS: INSULIN GLARGINE,HUM.REC.ANLOG 300 UNIT/3 ML INSULN.PEN SUBCUT SCH (07:43)
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
[2018-02-01] MEDS: AMLODIPINE BESYLATE 10 MG TABLET PO SCH (10:45)
[2018-02-01] MEDS: CARVEDILOL 6.25 MG TABLET PO SCH ×2 (10:45→21:38)
[2018-02-01] MEDS: ASPIRIN 81 MG TABLET, ENT COATED PO SCH (10:45)
[2018-02-01] MEDS: OLANZAPINE 5 MG TABLET PO SCH ×2 (10:45→18:11)
[2018-02-01] MEDS: BENZTROPINE MESYLATE INJ 2 MG/2 ML AMPULE IM SCH (10:45)
[2018-02-01] MEDS: DIVALPROEX SODIUM 250 MG TABLET.DR PO SCH ×2 (10:45→18:12)
[2018-02-01] MEDS: GABAPENTIN 300 MG CAPSULE PO SCH ×3 (10:45→18:12)
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
[2018-02-01] MEDS: ATORVASTATIN CALCIUM 20 MG TABLET PO SCH (21:38)
[2018-02-02] MEDS: INSULIN GLARGINE,HUM.REC.ANLOG 300 UNIT/3 ML INSULN.PEN SUBCUT SCH (07:33)
[2018-02-02] MEDS: LOSARTAN POTASSIUM 50 MG TABLET PO SCH (07:33)
[2018-02-02] MEDS: BENZTROPINE MESYLATE INJ 2 MG/2 ML AMPULE IM SCH (09:32)
[2018-02-02] MEDS: ASPIRIN 81 MG TABLET, ENT COATED PO SCH (09:33)
[2018-02-02] MEDS: DIVALPROEX SODIUM 250 MG TABLET.DR PO SCH ×2 (09:33→17:06)
[2018-02-02] MEDS: GABAPENTIN 300 MG CAPSULE PO SCH ×3 (09:33→17:06)
[2018-02-02] MEDS: CARVEDILOL 6.25 MG TABLET PO SCH ×2 (09:33→21:14)
[2018-02-02] MEDS: OLANZAPINE 5 MG TABLET PO SCH ×2 (09:33→17:06)
[2018-02-02] MEDS: AMLODIPINE BESYLATE 10 MG TABLET PO SCH (09:33)
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
[2018-02-02] MEDS ORDERED: TUBERCULIN,PURIF.PROT.DERIV. 5 TU/0.1 ML TEST 1 ML VIAL ID ONE (16:45)
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
[2018-02-02] MEDS: ATORVASTATIN CALCIUM 20 MG TABLET PO SCH (21:15)
[2018-02-03] MEDS: LOSARTAN POTASSIUM 50 MG TABLET PO SCH (08:14)
[2018-02-03] MEDS: INSULIN GLARGINE,HUM.REC.ANLOG 300 UNIT/3 ML INSULN.PEN SUBCUT SCH (08:14)
--- NOTE | 2018-02-03 09:14 | ER Document Report ---
Doctor's Note Notes: Patient seen and examined. No acute events overnight, previous notes reviewed. Patient does not have any complaints this morning. We are currently working on placement for the patient to possible closed memory unit, patient being set up to apply for Medicare/Medicaid to help facilitate this. She has dementia, and would not be safe going home, patient also has other comorbidities from a medical standpoint that need to be treated chronically as well. No other acute issues today. Continue current medical plan.
[2018-02-03] MEDS: CARVEDILOL 6.25 MG TABLET PO SCH ×2 (11:03→21:35)
[2018-02-03] MEDS: DIVALPROEX SODIUM 250 MG TABLET.DR PO SCH ×2 (11:03→18:25)
[2018-02-03] MEDS: AMLODIPINE BESYLATE 10 MG TABLET PO SCH (11:03)
[2018-02-03] MEDS: BENZTROPINE MESYLATE INJ 2 MG/2 ML AMPULE IM SCH (11:03)
[2018-02-03] MEDS: ASPIRIN 81 MG TABLET, ENT COATED PO SCH (11:04)
[2018-02-03] MEDS: OLANZAPINE 5 MG TABLET PO SCH ×2 (11:04→18:25)
[2018-02-03] MEDS: GABAPENTIN 300 MG CAPSULE PO SCH ×3 (11:04→18:25)
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
[2018-02-03] MEDS: ATORVASTATIN CALCIUM 20 MG TABLET PO SCH (21:34)
[2018-02-04] MEDS: LOSARTAN POTASSIUM 50 MG TABLET PO SCH (07:51)
[2018-02-04] MEDS: INSULIN GLARGINE,HUM.REC.ANLOG 300 UNIT/3 ML INSULN.PEN SUBCUT SCH (07:52)
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
[2018-02-04] MEDS: OLANZAPINE 5 MG TABLET PO SCH ×2 (09:47→17:31)
[2018-02-04] MEDS: DIVALPROEX SODIUM 250 MG TABLET.DR PO SCH ×2 (09:47→17:31)
[2018-02-04] MEDS: BENZTROPINE MESYLATE INJ 2 MG/2 ML AMPULE IM SCH (09:47)
[2018-02-04] MEDS: ASPIRIN 81 MG TABLET, ENT COATED PO SCH (09:47)
[2018-02-04] MEDS: GABAPENTIN 300 MG CAPSULE PO SCH ×3 (09:48→17:31)
[2018-02-04] MEDS: AMLODIPINE BESYLATE 10 MG TABLET PO SCH (09:48)
[2018-02-04] MEDS: CARVEDILOL 6.25 MG TABLET PO SCH ×2 (09:48→22:19)
--- NOTE | 2018-02-04 13:22 | ER Document Report ---
Doctor's Note Notes: 02/04/18 13:21 The patient is sleeping at this time. Per chart was reviewed. Blood sugar yesterday morning and this morning were just below 150. There was an order in for 3 times daily Accu-Cheks, however she has only had one done yesterday and, so far only one done today. This was brought to the attention of the charge nurse so that we can follow her sugars a little more closely. At this time she remains on IVC hold and they are attempting to get her placed at [facility].
[2018-02-04] MEDS ORDERED: INSULIN REG, HUMAN 100 UNIT/ML 3 ML VIAL (PYX) SUBCUT ONE (18:11)
--- NOTE | 2018-02-04 18:14 | ER Document Report ---
Doctor's Note Notes: 02/04/18 18:12 The patient's Accu-Cheks were ordered TID, then under comments it stated before breakfast, before lunch, and at bedtime. Unfortunately TID forced it into a schedule that caused her Accu-Cheks to be done after her meals giving spuriously high glucose levels. This order was canceled, and it was reordered as AC and HS.
[2018-02-04] MEDS: ATORVASTATIN CALCIUM 20 MG TABLET PO SCH (22:19)
[2018-02-05] MEDS: LOSARTAN POTASSIUM 50 MG TABLET PO SCH (08:55)
[2018-02-05] MEDS: CARVEDILOL 6.25 MG TABLET PO SCH ×2 (09:08→22:17)
[2018-02-05] MEDS: DIVALPROEX SODIUM 250 MG TABLET.DR PO SCH ×2 (09:09→17:44)
[2018-02-05] MEDS: ASPIRIN 81 MG TABLET, ENT COATED PO SCH (09:09)
[2018-02-05] MEDS: GABAPENTIN 300 MG CAPSULE PO SCH ×3 (09:09→17:44)
[2018-02-05] MEDS: INSULIN GLARGINE,HUM.REC.ANLOG 300 UNIT/3 ML INSULN.PEN SUBCUT SCH (09:10)
[2018-02-05] MEDS: AMLODIPINE BESYLATE 10 MG TABLET PO SCH (09:10)
[2018-02-05] MEDS: OLANZAPINE 5 MG TABLET PO SCH ×2 (09:10→17:44)
[2018-02-05] MEDS: BENZTROPINE MESYLATE INJ 2 MG/2 ML AMPULE IM SCH (09:12)
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
[2018-02-05] MEDS ORDERED: GLUCAGON,HUMAN RECOMB 1 MG INJ IM PRN (18:56)
[2018-02-05] MEDS ORDERED: DEXTROSE 40% GEL 15 GM TUBE PO PRN ×2 (18:56)
[2018-02-05] MEDS ORDERED: DEXTROSE 50%-WATER 25 GM/50 ML DISP.SYRIN IV PRN ×2 (18:56)
[2018-02-05] MEDS: INSULIN REG, HUMAN 100 UNIT/ML 3 ML VIAL (PYX) SUBCUT PRN ×2 (19:05→22:43)
[2018-02-05] MEDS: ATORVASTATIN CALCIUM 20 MG TABLET PO SCH (22:10)
[2018-02-06] MEDS: GABAPENTIN 300 MG CAPSULE PO SCH ×2 (09:16→18:14)
[2018-02-06] MEDS: BENZTROPINE MESYLATE INJ 2 MG/2 ML AMPULE IM SCH (09:16)
[2018-02-06] MEDS: DIVALPROEX SODIUM 250 MG TABLET.DR PO SCH ×2 (09:17→18:13)
[2018-02-06] MEDS: CARVEDILOL 6.25 MG TABLET PO SCH ×2 (09:17→21:57)
[2018-02-06] MEDS: AMLODIPINE BESYLATE 10 MG TABLET PO SCH (09:17)
[2018-02-06] MEDS: ASPIRIN 81 MG TABLET, ENT COATED PO SCH (09:17)
[2018-02-06] MEDS: LOSARTAN POTASSIUM 50 MG TABLET PO SCH (09:17)
[2018-02-06] MEDS: OLANZAPINE 5 MG TABLET PO SCH ×2 (09:17→18:14)
[2018-02-06] MEDS: INSULIN GLARGINE,HUM.REC.ANLOG 300 UNIT/3 ML INSULN.PEN SUBCUT SCH (09:18)
[2018-02-06] MEDS: INSULIN REG, HUMAN 100 UNIT/ML 3 ML VIAL (PYX) SUBCUT PRN ×3 (11:28→21:59)
--- NOTE | 2018-02-06 11:54 | ER Document Report ---
Doctor's Note Notes: 02/06/18 11:54 67-year-old female who is currently calm and cooperative. Awaiting placement at [facility]. Vital signs are stable. Patient currently has no complaints.
[2018-02-06] MEDS: ATORVASTATIN CALCIUM 20 MG TABLET PO SCH (22:13)
[2018-02-07] MEDS ORDERED: ACETAMINOPHEN 325 MG TABLET PO ONE ×2 (09:24→21:56)
--- NOTE | 2018-02-07 09:25 | ER Document Report ---
Doctor's Note Notes: 02/07/18 09:24 Vitals reviewed. Patient is up walking around the room and in no distress. She is calm and interactive. She states that she has a mild frontal headache and is requesting a dose of Tylenol which will be provided. Awaiting psych for final disposition.
[2018-02-07] MEDS: INSULIN GLARGINE,HUM.REC.ANLOG 300 UNIT/3 ML INSULN.PEN SUBCUT SCH (10:31)
[2018-02-07] MEDS: BENZTROPINE MESYLATE INJ 2 MG/2 ML AMPULE IM SCH (10:31)
[2018-02-07] MEDS: DIVALPROEX SODIUM 250 MG TABLET.DR PO SCH ×2 (10:32→18:31)
[2018-02-07] MEDS: AMLODIPINE BESYLATE 10 MG TABLET PO SCH (10:32)
[2018-02-07] MEDS: ASPIRIN 81 MG TABLET, ENT COATED PO SCH (10:32)
[2018-02-07] MEDS: LOSARTAN POTASSIUM 50 MG TABLET PO SCH (10:32)
[2018-02-07] MEDS: OLANZAPINE 5 MG TABLET PO SCH ×2 (10:32→18:31)
[2018-02-07] MEDS: CARVEDILOL 6.25 MG TABLET PO SCH ×2 (10:33→22:15)
[2018-02-07] MEDS: INSULIN REG, HUMAN 100 UNIT/ML 3 ML VIAL (PYX) SUBCUT PRN ×3 (11:12→22:16)
[2018-02-07] MEDS: ATORVASTATIN CALCIUM 20 MG TABLET PO SCH (22:16)
[2018-02-08] MEDS: INSULIN REG, HUMAN 100 UNIT/ML 3 ML VIAL (PYX) SUBCUT PRN ×4 (06:55→22:41)
[2018-02-08] MEDS: INSULIN GLARGINE,HUM.REC.ANLOG 300 UNIT/3 ML INSULN.PEN SUBCUT SCH (08:36)
[2018-02-08] MEDS: LOSARTAN POTASSIUM 50 MG TABLET PO SCH (08:36)
[2018-02-08] MEDS: CARVEDILOL 6.25 MG TABLET PO SCH ×2 (09:00→22:07)
[2018-02-08] MEDS: GABAPENTIN 300 MG CAPSULE PO SCH ×3 (09:00→18:12)
[2018-02-08] MEDS: AMLODIPINE BESYLATE 10 MG TABLET PO SCH (09:00)
[2018-02-08] MEDS: OLANZAPINE 5 MG TABLET PO SCH ×2 (09:00→18:10)
[2018-02-08] MEDS: DIVALPROEX SODIUM 250 MG TABLET.DR PO SCH ×2 (09:01→18:10)
[2018-02-08] MEDS: BENZTROPINE MESYLATE INJ 2 MG/2 ML AMPULE IM SCH (09:01)
[2018-02-08] MEDS: ASPIRIN 81 MG TABLET, ENT COATED PO SCH (09:04)
--- NOTE | 2018-02-08 09:26 | ER Document Report ---
Doctor's Note Notes: 02/08/18 09:24 Patient is resting comfortably and easily aroused and Versed. She is alert and oriented x3. She is without complaints this morning. Her vital signs have been stable. Her sugars have been well under control. The patient is waiting for psychiatric transfer.
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
[2018-02-08] MEDS: ATORVASTATIN CALCIUM 20 MG TABLET PO SCH (22:07)
[2018-02-09] MEDS: INSULIN REG, HUMAN 100 UNIT/ML 3 ML VIAL (PYX) SUBCUT PRN ×4 (06:52→22:15)
[2018-02-09] MEDS: GABAPENTIN 300 MG CAPSULE PO SCH ×7 (07:28→17:14)
[2018-02-09] MEDS: LOSARTAN POTASSIUM 50 MG TABLET PO SCH (07:42)
[2018-02-09] MEDS: INSULIN GLARGINE,HUM.REC.ANLOG 300 UNIT/3 ML INSULN.PEN SUBCUT SCH (07:43)
--- NOTE | 2018-02-09 09:34 | ER Document Report ---
Doctor's Note Notes: 02/09/18 09:33 67-year-old female who has been having emergency department for several days. The patient has baseline underlying dementia. She has medical problems as in diabetes. All her home meds have been ordered. I went and reevaluated her. She was pleasant to talk to. She endorsed that she had a mild headache and was asking for some Tylenol we will give her some Tylenol and her 10 AM medications. Patient otherwise seems to be doing well. They are attempting to place the patient at this time
[2018-02-09] MEDS: BENZTROPINE MESYLATE INJ 2 MG/2 ML AMPULE IM SCH (10:25)
[2018-02-09] MEDS: OLANZAPINE 5 MG TABLET PO SCH ×2 (10:26→17:15)
[2018-02-09] MEDS: DIVALPROEX SODIUM 250 MG TABLET.DR PO SCH ×2 (10:26→17:14)
[2018-02-09] MEDS: AMLODIPINE BESYLATE 10 MG TABLET PO SCH (10:26)
[2018-02-09] MEDS: CARVEDILOL 6.25 MG TABLET PO SCH ×2 (10:27→21:59)
[2018-02-09] MEDS: ASPIRIN 81 MG TABLET, ENT COATED PO SCH (10:27)
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
[2018-02-09] MEDS: ATORVASTATIN CALCIUM 20 MG TABLET PO SCH (22:00)
[2018-02-10] MEDS: INSULIN REG, HUMAN 100 UNIT/ML 3 ML VIAL (PYX) SUBCUT PRN ×4 (07:02→22:48)
[2018-02-10] MEDS: ACETAMINOPHEN 325 MG TABLET ONE ×2 (08:03→09:13)
[2018-02-10] MEDS: INSULIN GLARGINE,HUM.REC.ANLOG 300 UNIT/3 ML INSULN.PEN SUBCUT SCH (08:03)
[2018-02-10] MEDS: LOSARTAN POTASSIUM 50 MG TABLET PO SCH (08:03)
[2018-02-10] MEDS ORDERED: ACETAMINOPHEN 325 MG TABLET PO ONE (09:11)
--- NOTE | 2018-02-10 09:25 | ER Document Report ---
Doctor's Note Notes: 02/10/18 09:24 Patient resting comfortably. Vital signs and sugars have been stable. Plan unchanged.
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
[2018-02-10] MEDS: BENZTROPINE MESYLATE INJ 2 MG/2 ML AMPULE IM SCH (10:45)
[2018-02-10] MEDS: DIVALPROEX SODIUM 250 MG TABLET.DR PO SCH ×2 (10:45→17:39)
[2018-02-10] MEDS: OLANZAPINE 5 MG TABLET PO SCH ×2 (10:45→17:39)
[2018-02-10] MEDS: ASPIRIN 81 MG TABLET, ENT COATED PO SCH (10:45)
[2018-02-10] MEDS: GABAPENTIN 300 MG CAPSULE PO SCH ×3 (10:45→17:39)
[2018-02-10] MEDS: CARVEDILOL 6.25 MG TABLET PO SCH ×2 (10:45→22:41)
[2018-02-10] MEDS: AMLODIPINE BESYLATE 10 MG TABLET PO SCH (10:45)
[2018-02-10] MEDS: ATORVASTATIN CALCIUM 20 MG TABLET PO SCH (22:42)
[2018-02-11] MEDS: INSULIN GLARGINE,HUM.REC.ANLOG 300 UNIT/3 ML INSULN.PEN SUBCUT SCH (08:00)
[2018-02-11] MEDS: LOSARTAN POTASSIUM 50 MG TABLET PO SCH (08:14)
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
[2018-02-11] MEDS: AMLODIPINE BESYLATE 10 MG TABLET PO SCH (10:01)
[2018-02-11] MEDS: BENZTROPINE MESYLATE INJ 2 MG/2 ML AMPULE IM SCH (10:01)
[2018-02-11] MEDS: DIVALPROEX SODIUM 250 MG TABLET.DR PO SCH ×2 (10:01→17:05)
[2018-02-11] MEDS: ASPIRIN 81 MG TABLET, ENT COATED PO SCH (10:01)
[2018-02-11] MEDS: CARVEDILOL 6.25 MG TABLET PO SCH (10:01)
[2018-02-11] MEDS: GABAPENTIN 300 MG CAPSULE PO SCH ×3 (10:02→17:05)
[2018-02-11] MEDS: OLANZAPINE 5 MG TABLET PO SCH ×2 (10:02→17:05)
[2018-02-11] MEDS: INSULIN REG, HUMAN 100 UNIT/ML 3 ML VIAL (PYX) SUBCUT PRN ×2 (11:18→16:20)
[2018-02-12] MEDS: CARVEDILOL 6.25 MG TABLET PO SCH ×2 (00:17→09:00)
[2018-02-12] MEDS: ATORVASTATIN CALCIUM 20 MG TABLET PO SCH (00:19)
[2018-02-12] MEDS: INSULIN REG, HUMAN 100 UNIT/ML 3 ML VIAL (PYX) SUBCUT PRN ×3 (00:34→16:13)
[2018-02-12] MEDS ORDERED: ACETAMINOPHEN 325 MG TABLET PO ONE (06:35)
[2018-02-12] MEDS: LOSARTAN POTASSIUM 50 MG TABLET PO SCH (08:58)
[2018-02-12] MEDS: INSULIN GLARGINE,HUM.REC.ANLOG 300 UNIT/3 ML INSULN.PEN SUBCUT SCH (08:59)
[2018-02-12] MEDS: DIVALPROEX SODIUM 250 MG TABLET.DR PO SCH ×2 (09:00→18:01)
[2018-02-12] MEDS: GABAPENTIN 300 MG CAPSULE PO SCH ×3 (09:00→18:01)
[2018-02-12] MEDS: ASPIRIN 81 MG TABLET, ENT COATED PO SCH (09:00)
[2018-02-12] MEDS: BENZTROPINE MESYLATE INJ 2 MG/2 ML AMPULE IM SCH (09:00)
[2018-02-12] MEDS: OLANZAPINE 5 MG TABLET PO SCH ×2 (09:00→18:01)
[2018-02-12] MEDS: AMLODIPINE BESYLATE 10 MG TABLET PO SCH (09:00)
--- NOTE | 2018-02-12 09:44 | ER Document Report ---
Doctor's Note Notes: 02/12/18 09:43 Rounds: Chart reviewed and patient interviewed. Patient is without complaints. Does not express suicidal thoughts today. No labs to review. Vital signs are all normal. Patient appears to be medically stable for transfer or discharge. Patient has been here for 2 weeks! At this time, plan is to discharge her home with her grandson after he gets off from work this afternoon. Nata Lang MD
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
--- NOTE | 2018-02-12 15:30 | PSYCHOLOGICAL NOTE ---
Psych Note - Psych Note Date seen by psych provider: 02/11/18 Time seen by psych provider: 07:30 Psych Note: Reason for Consult: Altered Mental Status Contact Permissions: PCM from when patient first came to ED, stefan Grimm ) comes to visit often (patient provided contact information for him) Check-in conducted with patient Patient discloses she does not have a home to return to. She states that she does worry about other things. When asked she is reports money. She confirms that she lives with her grandsons parents and that she feels safe there. Patient again states that she has not slept well. Medication recommendations per [facility]'s contracted psychiatrist Dr. Gal WILD are as follows: Same since 01/29/18 Please discontinue home medications of Remeron, Trazodone, Celexa and Seroquel Please increase Gabapentin to 600mg 3 times daily Please add Depakote 250 mg twice daily Please add Zyprexa 5 mg twice daily Please add Cogentin 1 mg daily Diagnosis 296.80 (F31.9) unspecified bipolar and related disorder per history provided by patient 799.59 (R41.9) Unspecified Neurocognitive Disorder per history provided by patient's primary care physician- not primary diagnosis per PCP History of traumatic brain injury in 2004- stabilized with no continued concerns Impression\plan: Patient is recommended to continue under IVC. She continues to endorse suicidal ideation. It is noted the patient openly engages with clinician. Patient's primary physician came to [facility] for consultation. He reports that patient does not have a primary diagnosis of dementia. Discharge planning reports the patient will not be eligible for a locked memory unit because her diagnosis of dementia is not a primary diagnosis. Patient is completely alert and orientated to person, place, time and circumstance. Consulted with Dr. Sun regarding the management and care of patient. ED Physician in agreement with recommendations.
[2018-02-13 03:13] VITALS: BP 154/68
--- NOTE | 2018-02-26 09:05 | PSYCHOLOGICAL NOTE ---
Psych Note - Psych Note Psych Note: Reason for Consult: altered mental status 67-year-old female patient with traumatic brain injury in 2004, insulin- dependent diabetes, bipolar disorder and possible schizophrenia or schizoaffective disorder presents with her grandson and his mother who are concerned for recent change in behavior. no new concerns have arisen. Patient continues to reports she did not sleep well. She continues to disclose she wants to ; stating she always wants to . Patient reports no other concerns at this time. Medication recommendations per [facility]'s contracted psychiatrist Dr. Gal WILD are as follows Please discontinue home medications of Remeron, trazodone, Celexa and Seroquel Please increase gabapentin to 600mg 3 times daily Please add Depakote 250 mg twice daily Please add Zyprexa 5 mg twice daily Please add Cogentin 1 mg daily Diagnosis 799.59 (R41.9) unspecified neurocognitive disorder per history provided by patient's primary care physician history of traumatic brain injury Impression\plan: Patient's primary physician came to [facility] for consultation. He reports that patient does not have a primary diagnosis of dementia. Discharge planning reports the patient will not be eligible for a locked memory unit because her diagnosis of dementia is not a primary diagnosis. Referral to [facility] has been submitted. Dr. Sun was consulted and the care and management of this patient; attending physician is agreement with recommendations and disposition.
== END 2018-02-12 20:50 | disposition home or self-care (01) ==
LOC: ER 10:39
DX: S01.00XA Unspecified open wound of scalp, initial encounter (principal); X74.01XA Intentional self-harm by airgun, initial encounter; F03.91 Unspecified dementia, unspecified severity, with behavioral disturbance; F31.9 Bipolar disorder, unspecified; I10 Essential (primary) hypertension; E11.9 Type 2 diabetes mellitus without complications; Z79.4 Long term (current) use of insulin; R32 Unspecified urinary incontinence; F17.210 Nicotine dependence, cigarettes, uncomplicated; R10.33 Periumbilical pain; R51 Headache; R15.9 Full incontinence of feces; E78.00 Pure hypercholesterolemia, unspecified; Z75.1 Person awaiting admission to adequate facility elsewhere; Z79.899 Other long term (current) drug therapy; Z79.82 Long term (current) use of aspirin; Z87.820 Personal history of traumatic brain injury; Z88.8 Allergy status to other drugs, medicaments and biological substances; Z88.5 Allergy status to narcotic agent; Z88.0 Allergy status to penicillin
CPT/HCPCS: 93005; 99285; 96372; 90471; 36415; 82962; 80307 ×4; 83735; 84443; 85025; 80053; 81001; 83036; 70450; 90715; 93010; J0515 ×14; J1815 ×11

== ENCOUNTER 2018-09-06 12:07 | Inpatient (IN) | payer MEDICARE, BC ==
[2018-09-06] MEDS ORDERED: NORMAL SALINE 1000 ML 1,000 ML IV ONE ×3 (12:23→18:34)
--- NOTE | 2018-09-06 12:24 | ER Document Report ---
ED General - General Stated Complaint: POSSIBLE SEPSIS Time Seen by Provider: 09/06/18 12:23 Primary Care Provider: SONYA LOTT MD [Primary Care Provider] - Follow up as needed TRAVEL OUTSIDE OF THE [place] IN LAST 30 DAYS: No - HPI Patient complains to provider of: Altered mental status Notes: 68-year-old female presents from confusion, high blood sugar and fever. Patient was in her normal state of health yesterday. found to have very elevated blood glucose this morning and is not acting right. She is feeling much improved now but initially was febrile and confused. Patient arrives via ambulance as a prehospital lactic acid of 3.7. She was given fluid re suscitation by paramedics as well. She is answering my questions appropriately although she does appear very tired. She denies any cough chest pain dysuria diarrhea any nausea vomiting or rash. - Related Data Allergies/Adverse Reactions: diphenhydramine HCl [From Benadryl] Allergy (Verified 01/29/18 10:42) iodine Allergy (Verified 01/29/18 10:42) morphine [Morphine] Allergy (Verified 01/29/18 10:42) Penicillins Allergy (Verified 01/29/18 10:42) Past Medical History - Social History Smoking Status: Current Every Day Smoker Family History: None - Past Medical History Cardiac Medical History: Reports: Hx Congestive Heart Failure, Hx Hypercholesterolemia, Hx Hypertension Endocrine Medical History: Reports: Hx Diabetes Mellitus Type 2 Renal/ Medical History: Denies: Hx Peritoneal Dialysis Psychiatric Medical History: Reports: Hx Bipolar Disorder Past Surgical History: Reports: Hx Abdominal Surgery - possible exploratory, Hx Orthopedic Surgery - R BKA Review of Systems - Review of Systems Notes: REVIEW OF SYSTEMS: CONSTITUTIONAL: Positive fevers, -chills EENT: -eye pain, -difficulty swallowing, -nasal congestion CARDIOVASCULAR: -chest pain, -syncope. RESPIRATORY: -cough, -SOB GASTROINTESTINAL: -abdominal pain, -nausea, -vomiting, -diarrhea GENITOURINARY: -dysuria, -hematuria MUSCULOSKELETAL: -back pain, -neck pain SKIN: -rash or skin lesions. HEMATOLOGIC: -easy bruising or bleeding. LYMPHATIC: -swollen, enlarged glands. NEUROLOGICAL: -altered mental status or loss of consciousness, -headache, - neurologic symptoms PSYCHIATRIC: -anxiety, -depression. ALL OTHER SYSTEMS REVIEWED AND NEGATIVE. Physical Exam - Notes Notes: PHYSICAL EXAMINATION: GENERAL: Well-appearing, well-nourished and in severe acute distress. HEAD: Atraumatic, normocephalic. EYES: Pupils equal round and reactive to light, extraocular movements intact, sclera anicteric, conjunctiva are normal. ENT: nares patent, oropharynx clear without exudates. Moist mucous membranes. NECK: Normal range of motion, supple without lymphadenopathy LUNGS: Breath sounds clear to auscultation bilaterally and equal. No wheezes rales or rhonchi. HEART: Tachycardia and rhythm without murmurs ABDOMEN: Soft, nontender, normoactive bowel sounds. No guarding, no rebound. No masses appreciated. EXTREMITIES: Normal range of motion, low the knee amputee on right leg NEUROLOGICAL: Cranial nerves grossly intact. Normal speech, normal gait. Normal sensory and motor exams. PSYCH: Normal mood, normal affect. SKIN: Warm, Dry, normal turgor, no rashes or lesions noted. Course - Re-evaluation Re-evalutation: 09/06/18 12:32 Weekly ill-appearing 68 with high fever, tachycardia and hypotension. Patient's prehospital lactic acid 3.7. Very concerning for endorgan damage. Will initiate aggressive fluid resuscitation at 30 mL/kg. Patient also found to be hyperglycemic., Verify potassium is greater than 3.3, no ketones in urine, non-acidotic. We will give 10 units subcutaneous insulin 09/06/18 13:22 Likely ill-appearing patient has our lactic acid returned at 3.9 in the emergency vitals after 5 gemellus fluid. Patient given antipyretics early on the course. Temp Fish placed during evaluation temperature recorded at 102.7. Extensive lab work-up initiated in the emergency department including blood cultures. Patient found to have profound leukocytosis greater than 16,000 with bandemia. Gross lactic acidosis. Patient has 2 large-bore IVs established to begin the fluid resuscitation. Hypotension greatly improved after fluid resuscitation systolic blood pressure 116. Patient now afebrile after antipyretics. She is mentating normally again feels much improved. Patient's chest x-ray shows no focal infiltrate or other acute process, urine shows no signs of infection, skin is no cellulitic lesions or rashes. Patient has no neck pain no altered mental status at this time. Low suspicion for central cause of fever. Patient has a benign abdominal exam denies nausea or vomiting. Blood cultures are pending at this time no identifiable source for her sepsis. Will initiate broad-spectrum antibiotic coverage including ceftriaxone and vancomycin. Patient will be admitted to the hospital for close management - Laboratory Result Diagrams: 09/06/18 12:06 09/06/18 12:06 Laboratory results interpreted by me: 09/06/18 09/06/18 09/06/18 12:06 12:06 12:06 WBC 16.3 H RDW 15.4 H Seg Neutrophils % 81.6 H Lymphocytes % 11.2 L Absolute Neutrophils 13.3 H VBG pH Sodium 136.9 L BUN 27 H Creatinine 1.35 H Est GFR ( Amer) 47 L Est GFR (Non-Af Amer) 39 L Glucose 362 H POC Glucose Lactic Acid 3.9 H Alkaline Phosphatase 154 H Urine Glucose (UA) Urine Ketones 09/06/18 09/06/18 09/06/18 12:06 12:06 12:14 WBC RDW Seg Neutrophils % Lymphocytes % Absolute Neutrophils VBG pH 7.43 H Sodium BUN Creatinine Est GFR ( Amer) Est GFR (Non-Af Amer) Glucose POC Glucose 352 H Lactic Acid Alkaline Phosphatase Urine Glucose (UA) >=500 H Urine Ketones TRACE H - EKG Interpretation by Me EKG shows normal: Sinus rhythm Rate: Tachycardia Rhythm: NSR Additional EKG results interpreted by me: 09/06/18 13:[address] elevations or depressions, no pathologic T wave inversions. Critical Care Note - Critical Care Note Total time excluding time spent on procedures (mins): 37 Discharge - Discharge Clinical Impression: SAVANNAH (acute kidney injury), Hyperglycemia Hypotension Qualifiers: Hypotension type: unspecified hypotension type Qualified Code(s): I95.9 - Hypotension, unspecified Fever Qualifiers: Fever type: unspecified Qualified Code(s): R50.9 - Fever, unspecified Sepsis Qualifiers: Sepsis type: sepsis due to unspecified organism Qualified Code(s): A41.9 - Sepsis, unspecified organism Condition: Serious Disposition: ADMITTED INPATIENT Admitting Provider: [facility] Unit Admitted: Medical Floor Referrals: SONYA LOTT MD [Primary Care Provider] - Follow up as needed
[2018-09-06] MEDS ORDERED: ACETAMINOPHEN 325 MG TABLET PO ONE (12:26)
[2018-09-06] MEDS ORDERED: IBUPROFEN 600 MG TABLET PO ONE (12:27)
[2018-09-06 12:46] LABS: VENOUS BLOOD BASE EXCESS -1.2 mmol/L; VENOUS BLOOD HCO3 22.5 mmol/L (20-32); VENOUS BLOOD PCO2 35.1 mmHg (35-63); VENOUS BLOOD PH 7.43 (7.30-7.42)
[2018-09-06 12:47] LABS: ABSOLUTE BASOPHILS # (AUTO) 0.1 10^3/uL (0.0-0.2); ABSOLUTE LYMPHOCYTES (AUTO) 1.8 10^3/uL (0.5-4.7); ABSOLUTE MONOCYTES (AUTO) 1.1 10^3/uL (0.1-1.4); ABSOLUTE NEUT (AUTO) 13.3 10^3/uL (1.7-8.2); APPEARANCE,URINE SLIGHTLY-CLOUDY; BASOPHILS % (AUTO) 0.3 % (0-2); BILIRUBIN,URINE NEGATIVE (NEGATIVE); COLOR,URINE YELLOW; GLUCOSE, URINE >=500 mg/dL (NEGATIVE); HEMATOCRIT 45.3 % (36.0-47.0); HEMOGLOBIN 14.9 g/dL (12.0-15.5); KETONES,URINE TRACE mg/dL (NEGATIVE); LEUKOCYTE ESTERASE,URINE NEGATIVE (NEGATIVE); LYMPHOCYTES % (AUTO) 11.2 % (13-45); MEAN CORPUSCULAR HEMOGLOBIN 28.5 pg (27.0-33.4); MEAN CORPUSCULAR HGB CONC 32.9 g/dL (32.0-36.0); MEAN CORPUSCULAR VOLUME 87 fl (80-97); MONOCYTES % (AUTO) 6.9 % (3-13); NITRITE,URINE NEGATIVE (NEGATIVE); PLATELET COUNT 238 10^3/uL (150-450); PROTEIN,URINE NEGATIVE (NEGATIVE); RED BLOOD COUNT 5.23 10^6/uL (3.72-5.28); RED CELL DISTRIBUTION WIDTH 15.4 % (11.5-14.0); SEGMENTED NEUTROPHILS % (AUTO) 81.6 % (42-78); TOTAL CELLS COUNTED % (AUTO) 100 %; URINE SPECIFIC GRAVITY 1.015; UROBILINOGEN,URINE NEGATIVE mg/dL (<2.0); WHITE BLOOD COUNT 16.3 10^3/uL (4.0-10.5)
--- NOTE | 2018-09-06 12:48 | RADIOLOGY REPORT (SQ) ---
EXAM DESCRIPTION: CHEST SINGLE VIEW COMPLETED DATE/TIME: 09/06/2018 12:41 pm REASON FOR STUDY: cough COMPARISON: None. EXAM PARAMETERS: NUMBER OF VIEWS: One view. TECHNIQUE: Single frontal radiographic view of the chest acquired. RADIATION DOSE: NA LIMITATIONS: None. FINDINGS: LUNGS AND PLEURA: No opacities, masses or pneumothorax. No pleural effusion. MEDIASTINUM AND HILAR STRUCTURES: No masses. Contour normal. HEART AND VASCULAR STRUCTURES: Heart normal in size. Normal vasculature. BONES: No acute findings. HARDWARE: None in the chest. OTHER: No other significant finding. IMPRESSION: NO ACUTE RADIOGRAPHIC FINDING IN THE CHEST. TECHNICAL DOCUMENTATION: JOB ID: [id number] [employer]- All Rights Reserved Reading location - IP/workstation name: [email or web address]
[2018-09-06 12:50] LABS: INTERNATIONAL RATION (INR) 0.94
[2018-09-06 13:05] LABS: ALANINE AMINOTRANSFERASE 31 U/L (9-52); ALBUMIN 3.5 g/dL (3.5-5.0); ALKALINE PHOSPHATASE 154 U/L (38-126); ANION GAP 14 (5-19); ASPARTATE AMINO TRANSFERASE 23 U/L (14-36); BILIRUBIN,DIRECT 0.3 mg/dL (0.0-0.4); BILIRUBIN,TOTAL 0.6 mg/dL (0.2-1.3); BLOOD UREA NITROGEN 27 mg/dL (7-20); CALCIUM 9.7 mg/dL (8.4-10.2); CARBON DIOXIDE 24 mmol/L (22-30); CHLORIDE 99 mmol/L (98-107); GLUCOSE 362 mg/dL (75-110); POTASSIUM 4.5 mmol/L (3.6-5.0); SODIUM 136.9 mmol/L (137-145); TOTAL PROTEIN 6.9 g/dL (6.3-8.2)
[2018-09-06] MEDS ORDERED: CEFTRIAXONE 1 GM/D5W RTU 50 ML IV ONE (13:10)
[2018-09-06] MEDS ORDERED: VANCOMYCIN HCL INJ 1000 MG VIAL IV ONE (13:15)
[2018-09-06] MEDS ORDERED: CEFTRIAXONE 1 GM/D5W RTU 1 GM/50 ML RTUPB IV ONE ×2 (13:17→13:19)
[2018-09-06] MEDS ORDERED: INSULIN REG, HUMAN 100 UNIT/ML 3 ML VIAL (PYX) SUBCUT ONE (13:19)
--- NOTE | 2018-09-06 18:33 | PDOC H&P ---
History of Present Illness Admission Date/PCP: 09/06/18 13:28 [facility] Patient complains of: Confusion, High blood sugar, Fever History of Present Illness: DEREK LEÓN is a 68 year old female known to my practice who presented to ED via EMS following family activation for service due to patient development of confusion, fever and elevated blood glucose upon waking up this morning. Family reported that patient was fine when she went to bed last night. She developed elevated temperature and become confused this morning. Family reported elevated blood glucose for couple of days. She denied any coughing, difficulty with breathing, chest pain, dysuria, flank pain, hematuria, dizziness, headache, nasal or sinus congestion. She denied any difficulty with swallowing or sore throat. EMS crew reported serum lactic acid level at 3.7 with associated hy potension necessitating administration of IV fluid en route to the hospital. Her initial evaluation in the ED was significant for persistent hypotension, abnormal renal indices, elevated lactic acid level, hyperglycemia, and leukocytosis. She was treated with IV fluid support, antipyretics, and anti biotic after appropriate workup. Her morbidities include congestive heart failure, Hypertension, Hyperlipidemia, Diabetes mellitus type 2, and Bipolar Disorder. Past Medical History Cardiac Medical History: Reports: Congestive Heart Failure, Hyperlipidema, Hyp ertension Endocrine Medical History: Reports: Diabetes Mellitus Type 2 Psychiatric Medical History: Reports: Bipolar Disorder Past Surgical History Past Surgical History: Reports: Orthopedic Surgery - R BKA Social History Smoking Status: Current Every Day Smoker Frequency of Alcohol Use: None Hx Recreational Drug Use: Yes Drugs: Marijuana Hx Prescription Drug Abuse: Yes - Advance Directive Resuscitation Status: Full Code Family History Family History: None Parental Family History Reviewed: Yes Children Family History Reviewed: Yes Sibling(s) Family History Reviewed.: Yes Medication/Allergy Home Medications: Amlodipine Besylate [Norvasc 10 mg Tablet] 10 mg PO DAILY 09/06/18 Aspirin [Ecotrin 81 mg EC Tablet] 81 mg PO DAILY 09/06/18 Atorvastatin Calcium [Lipitor 20 mg Tablet] 20 mg PO QHS 09/06/18 Benztropine Mesylate [Cogentin 1 mg Tablet] 1 tab PO DAILY 09/06/18 Carvedilol [Coreg 12.5 mg Tablet] 12.5 mg PO Q12 09/06/18 Divalproex Sodium [Depakote] 250 mg PO Q12 09/06/18 Donepezil HCl [Aricept 5 mg Tablet] 5 mg PO DAILY 09/06/18 Furosemide [Lasix 20 mg Tablet] 20 mg PO QAM 09/06/18 Gabapentin [Neurontin] 600 mg PO TID 09/06/18 Insulin Glargine,Hum.rec.anlog [Lantus Insulin 100 Unit/1 ml 10 ml] 40 unit SUBCUT QAM 09/06/18 Irbesartan/Hydrochlorothiazide [Irbesartan-Hctz 150-12.5 mg Tb] 1 each PO DAILY 09/06/18 Metformin HCl 500 mg PO Q12 09/06/18 Olanzapine [Zyprexa 5 mg Tablet] 5 mg PO Q12 09/06/18 Allergies/Adverse Reactions: diphenhydramine HCl [From Benadryl] Allergy (Verified 01/29/18 10:42) iodine Allergy (Verified 01/29/18 10:42) morphine [Morphine] Allergy (Verified 01/29/18 10:42) Penicillins Allergy (Verified 01/29/18 10:42) Review of Systems Constitutional: PRESENT: fatigue, fever(s), weakness. ABSENT: as per HPI, anorexia, chills, headache(s), night sweats, weight gain, weight loss, other Eyes: ABSENT: visual disturbances Ears: ABSENT: hearing changes Nose, Mouth, and Throat: ABSENT: as per HPI, headache(s), mouth pain, sore throat, vertigo, other Cardiovascular: ABSENT: chest pain, dyspnea on exertion, edema, orthropnea, palpitations Respiratory: ABSENT: cough, hemoptysis Gastrointestinal: ABSENT: abdominal pain, constipation, diarrhea, hematemesis, hematochezia, nausea, vomiting Genitourinary: ABSENT: dysuria, hematuria Musculoskeletal: ABSENT: joint swelling Integumentary: ABSENT: rash, wounds Neurological: PRESENT: confusion. ABSENT: abnormal gait, abnormal speech, dizziness, focal weakness, syncope Psychiatric: ABSENT: anxiety, depression, homidical ideation, suicidal ideation Endocrine: ABSENT: cold intolerance, heat intolerance, polydipsia, polyuria Hematologic/Lymphatic: ABSENT: easy bleeding, easy bruising, lymphadenopathy Allergic/Immunologic: ABSENT: seasonal rhinorrhea Physical Exam Vital Signs: Temp Pulse Resp BP Pulse Ox 99.2 F 20 100/67 95 09/06/18 17:00 09/06/18 17:00 09/06/18 16:22 09/06/18 17:00 Intake & Output 09/05/18 09/06/18 09/07/18 06:59 06:59 06:59 Intake Total 2049 Balance 2049 Weight 87.8 kg General appearance: PRESENT: no acute distress, well-developed, well-nourished Head exam: PRESENT: atraumatic, normocephalic Eye exam: PRESENT: conjunctiva pink, EOMI, PERRLA. ABSENT: scleral icterus Ear exam: PRESENT: normal external ear exam Mouth exam: PRESENT: moist, neck supple, tongue midline Teeth exam: PRESENT: poor dentation Neck exam: PRESENT: full ROM. ABSENT: carotid bruit, JVD, lymphadenopathy, thyromegaly Respiratory exam: PRESENT: clear to auscultation arlene, decreased breath sounds - at lung bases Cardiovascular exam: PRESENT: RRR, +S1, +S2. ABSENT: diastolic murmur, rubs, systolic murmur Vascular exam: ABSENT: pallor GI/Abdominal exam: PRESENT: normal bowel sounds, soft. ABSENT: distended, guarding, mass, organolmegaly, rebound, tenderness Rectal exam: PRESENT: deferred Extremities exam: PRESENT: right BKA. ABSENT: pedal edema Musculoskeletal exam: PRESENT: deformity - related to multiple joints involvement with arthritis Neurological exam: PRESENT: alert, awake, oriented to person, oriented to place, oriented to time, oriented to situation, CN II-XII grossly intact. ABSENT: motor sensory deficit Psychiatric exam: PRESENT: appropriate affect, normal mood. ABSENT: homicidal ideation, suicidal ideation Skin exam: PRESENT: dry, warm Results Laboratory Results: 09/06/18 12:06 09/06/18 12:06 09/06/18 09/06/18 09/06/18 12:06 12:06 12:06 WBC 16.3 H RBC 5.23 Hgb 14.9 Hct 45.3 MCV 87 MCH 28.5 MCHC 32.9 RDW 15.4 H Plt Count 238 Seg Neutrophils % 81.6 H Lymphocytes % 11.2 L Monocytes % 6.9 Eosinophils % 0.0 Basophils % 0.3 Absolute Neutrophils 13.3 H Absolute Lymphocytes 1.8 Absolute Monocytes 1.1 Absolute Eosinophils 0.0 Absolute Basophils 0.1 VBG pH VBG pCO2 VBG HCO3 VBG Base Excess Sodium 136.9 L Potassium 4.5 Chloride 99 Carbon Dioxide 24 Anion Gap 14 BUN 27 H Creatinine 1.35 H Est GFR ( Amer) 47 L Est GFR (Non-Af Amer) 39 L Glucose 362 H Lactic Acid 3.9 H Calcium 9.7 Total Bilirubin 0.6 AST 23 ALT 31 Alkaline Phosphatase 154 H Total Protein 6.9 Albumin 3.5 Urine Color Urine Appearance Urine pH Ur Specific [place] Urine Protein Urine Glucose (UA) Urine Ketones Urine Blood Urine Nitrite Ur Leukocyte Esterase Urine WBC (Auto) Urine RBC (Auto) 09/06/18 09/06/18 09/06/18 12:06 12:06 16:30 WBC RBC Hgb Hct MCV MCH MCHC RDW Plt Count Seg Neutrophils % Lymphocytes % Monocytes % Eosinophils % Basophils % Absolute Neutrophils Absolute Lymphocytes Absolute Monocytes Absolute Eosinophils Absolute Basophils VBG pH 7.43 H VBG pCO2 35.1 VBG HCO3 22.5 VBG Base Excess -1.2 Sodium Potassium Chloride Carbon Dioxide Anion Gap BUN Creatinine Est GFR ( Amer) Est GFR (Non-Af Amer) Glucose Lactic Acid 3.0 H Calcium Total Bilirubin AST ALT Alkaline Phosphatase Total Protein Albumin Urine Color YELLOW Urine Appearance SLIGHTLY-CLOUDY Urine pH 5.0 Ur Specific [place] 1.015 Urine Protein NEGATIVE Urine Glucose (UA) >=500 H Urine Ketones TRACE H Urine Blood NEGATIVE Urine Nitrite NEGATIVE Ur Leukocyte Esterase NEGATIVE Urine WBC (Auto) 2 Urine RBC (Auto) 2 09/06/18 12:06 Troponin I < 0.012 Impressions: Chest X-Ray 09/06/18 12:23 IMPRESSION: NO ACUTE RADIOGRAPHIC FINDING IN THE CHEST. Assessment & Plan - Diagnosis (1) Toxic metabolic encephalopathy Is this a current diagnosis for this admission?: Yes Plan: See admitting attending physician orders for details of care plan. (2) Probable sepsis Is this a current diagnosis for this admission?: Yes Plan: See admitting attending physician orders for details of care plan. (3) Hypotension Qualifiers: Hypotension type: unspecified hypotension type Qualified Code(s): I95.9 - Hypotension, unspecified Is this a current diagnosis for this admission?: Yes Plan: See admitting attending physician orders for details of care plan. (4) Fever Qualifiers: Fever type: unspecified Qualified Code(s): R50.9 - Fever, unspecified Is this a current diagnosis for this admission?: Yes Plan: See admitting attending physician orders for details of care plan. (5) Acute kidney injury Is this a current diagnosis for this admission?: Yes Plan: See admitting attending physician orders for details of care plan. (6) Hyperglycemia Is this a current diagnosis for this admission?: Yes Plan: See admitting attending physician orders for details of care plan. (7) Diabetes mellitus type 2 in obese Is this a current diagnosis for this admission?: Yes Plan: See admitting attending physician orders for details of care plan. (8) HLD (hyperlipidemia) Qualifiers: Hyperlipidemia type: pure hypercholesterolemia Qualified Code(s): E78.00 - Pure hypercholesterolemia, unspecified; E78.0 - Pure hypercholesterolemia Is this a current diagnosis for this admission?: Yes Plan: See admitting attending physician orders for details of care plan. (9) Recurrent major depression Qualifiers: Psychotic features: with psychotic features Is this a current diagnosis for this admission?: Yes Plan: See admitting attending physician orders for details of care plan. - Time Time Spent: 50 to 70 Minutes Medications reviewed and adjusted accordingly: Yes Anticipated discharge: Home with Homehealth Within: Other - Inpatient Certification Based on my medical assessment, after consideration of the patient's comorbidities, presenting symptoms, or acuity I expect that the services needed warrant INPATIENT care.: Yes I certify that my determination is in accordance with my understanding of Medicare's requirements for reasonable and necessary INPATIENT services [42 CFR 412.3e].: Yes Medical Necessity: Significant Comorbidiites Make Outpatient Treatment Too Risky, Need Close Monitoring Due to Risk of Patient Decompensation, Need For IV Fluids, Need For Continuous Telemetry Monitoring, Need for IV Antibiotics, Risk of Complication if Not Cared For in Hospital, Risk of Diagnosis Which Will Require Inpatient Eval/Care/Monitoring Post Hospital Care: D/C Child Welfare Manager Documentation - Plan Summary Plan Summary: See admitting attending physician orders for details of care plan.
[2018-09-06] MEDS ORDERED: DEXTROSE 50%-WATER 25 GM/50 ML DISP.SYRIN IV PRN ×2 (18:34)
[2018-09-06] MEDS ORDERED: DEXTROSE 40% GEL 15 GM TUBE PO PRN ×2 (18:34)
[2018-09-06] MEDS ORDERED: GLUCAGON,HUMAN RECOMB 1 MG INJ IM PRN (18:34)
--- NOTE | 2018-09-06 18:55 | EKG REPORT ---
SEVERITY:- ABNORMAL ECG - SINUS TACHYCARDIA BORDERLINE LEFT AXIS DEVIATION CONSIDER ANTERIOR INFARCT BORDERLINE T ABNORMALITIES, ANTERIOR LEADS : Confirmed by: Adalid Mc MD 06-Sep-2018 18:54:28
[2018-09-06] MEDS: NORMAL SALINE 1000 ML 1,000 ML IV PRN (21:00)
[2018-09-06] MEDS: INSULIN LISPRO 100 UNIT/ML 3 ML VIAL SUBCUT SCH (21:50)
[2018-09-06] MEDS: DIVALPROEX SODIUM 250 MG TABLET.DR PO SCH (21:51)
[2018-09-06] MEDS: OLANZAPINE 5 MG TABLET PO SCH (21:51)
[2018-09-06] MEDS: AZTREONAM 0.75 GM in DEXTROSE 5%-WATER 50 ML IV SCH (21:53)
[2018-09-07 05:18] LABS: ABSOLUTE LYMPHOCYTES (AUTO) 1.5 10^3/uL (0.5-4.7); ABSOLUTE MONOCYTES (AUTO) 0.6 10^3/uL (0.1-1.4); ABSOLUTE NEUT (AUTO) 8.3 10^3/uL (1.7-8.2); BASOPHILS % (AUTO) 0.4 % (0-2); EOSINOPHILS % (AUTO) 0.3 % (0-6); HEMATOCRIT 37.5 % (36.0-47.0); LYMPHOCYTES % (AUTO) 14.7 % (13-45); MEAN CORPUSCULAR HEMOGLOBIN 28.3 pg (27.0-33.4); MEAN CORPUSCULAR VOLUME 86 fl (80-97); MONOCYTES % (AUTO) 5.5 % (3-13); PLATELET COUNT 191 10^3/uL (150-450); RED BLOOD COUNT 4.37 10^6/uL (3.72-5.28); RED CELL DISTRIBUTION WIDTH 15.4 % (11.5-14.0); SEGMENTED NEUTROPHILS % (AUTO) 79.1 % (42-78); TOTAL CELLS COUNTED % (AUTO) 100 %; WHITE BLOOD COUNT 10.5 10^3/uL (4.0-10.5)
[2018-09-07 05:23] LABS: ALANINE AMINOTRANSFERASE 35 U/L (9-52); ALBUMIN 2.6 g/dL (3.5-5.0); ALKALINE PHOSPHATASE 107 U/L (38-126); ANION GAP 7 (5-19); ASPARTATE AMINO TRANSFERASE 26 U/L (14-36); BILIRUBIN,DIRECT 0.2 mg/dL (0.0-0.4); BILIRUBIN,TOTAL 0.3 mg/dL (0.2-1.3); BLOOD UREA NITROGEN 23 mg/dL (7-20); CALCIUM 8.2 mg/dL (8.4-10.2); CARBON DIOXIDE 24 mmol/L (22-30); CHLORIDE 108 mmol/L (98-107); GLUCOSE 249 mg/dL (75-110); HEMOGLOBIN 12.4 g/dL (12.0-15.5); POTASSIUM 3.6 mmol/L (3.6-5.0); SODIUM 139.4 mmol/L (137-145); TOTAL PROTEIN 5.4 g/dL (6.3-8.2)
[2018-09-07] MEDS: AZTREONAM 0.75 GM in DEXTROSE 5%-WATER 50 ML IV SCH ×3 (05:31→21:39)
[2018-09-07] MEDS: PANTOPRAZOLE SODIUM 40 MG TABLET.DR PO SCH (05:31)
[2018-09-07] MEDS: INSULIN LISPRO 100 UNIT/ML 3 ML VIAL SUBCUT SCH ×4 (07:41→21:39)
[2018-09-07] MEDS: NORMAL SALINE 1000 ML 1,000 ML IV PRN (07:42)
[2018-09-07] MEDS ORDERED: VANCOMYCIN HCL 0 MG in DEXTROSE 5%-WATER 250 ML IV NR (08:00)
[2018-09-07] MEDS: DIVALPROEX SODIUM 250 MG TABLET.DR PO SCH ×2 (09:30→21:40)
[2018-09-07] MEDS: LEVOFLOXACIN 500 MG/D5W RTU 500 MG/100 ML RTUPB IV SCH (09:30)
[2018-09-07] MEDS: BENZTROPINE MESYLATE 1 MG TABLET PO SCH (09:30)
[2018-09-07] MEDS: ENOXAPARIN SODIUM INJ 30 MG/0.3 ML DISP.SYRIN SUBCUT SCH (09:30)
[2018-09-07] MEDS: OLANZAPINE 5 MG TABLET PO SCH ×2 (09:31→21:40)
[2018-09-07] MEDS: GABAPENTIN 300 MG CAPSULE PO SCH ×3 (09:31→17:13)
[2018-09-07] MEDS: VANCOMYCIN HCL 750 MG in DEXTROSE 5%-WATER 250 ML IV SCH ×2 (09:31→22:47)
[2018-09-07] MEDS ORDERED: VANCOMYCIN HCL 1,250 MG in DEXTROSE 5%-WATER 250 ML IV SCH (12:00)
--- NOTE | 2018-09-07 19:29 | PDOC PROGRESS REPORT ---
Subjective Progress Note for:: 09/07/18 Subjective:: Patient denied any chest pain or difficulty with breathing. No fever or chills. Her mentation remain stable. No nausea, vomiting or abdominal pain. Blood and urine culture remain no growth to date. She remain on IV antibiotic coverage. Reason For Visit: HYPOTENSION,FEVER,SEPSIS,SAVANNAH,HYPERGLYCEMIA Physical Exam Vital Signs: Temp Pulse Resp BP Pulse Ox 97.9 F 92 22 H 133/42 H 94 09/07/18 03:51 09/07/18 07:00 09/07/18 03:51 09/07/18 03:51 09/07/18 03:51 Intake & Output 09/06/18 09/07/18 09/08/18 06:59 06:59 06:59 Intake Total 3600 1007 Output Total 390 Balance 3210 1007 Weight 90.8 kg General appearance: PRESENT: no acute distress, well-developed, well-nourished Head exam: PRESENT: atraumatic, normocephalic Eye exam: PRESENT: conjunctiva pink. ABSENT: scleral icterus Ear exam: PRESENT: normal external ear exam Mouth exam: PRESENT: moist Teeth exam: PRESENT: poor dentation Respiratory exam: PRESENT: clear to auscultation arlene, decreased breath sounds - at lung bases Cardiovascular exam: PRESENT: RRR. ABSENT: diastolic murmur, rubs, systolic murmur Vascular exam: ABSENT: pallor GI/Abdominal exam: PRESENT: normal bowel sounds, soft. ABSENT: distended, guarding, mass, organolmegaly, rebound, tenderness Extremities exam: PRESENT: right BKA. ABSENT: pedal edema Neurological exam: PRESENT: alert, awake, oriented to person, oriented to place, oriented to time, oriented to situation, CN II-XII grossly intact. ABSENT: motor sensory deficit Psychiatric exam: PRESENT: appropriate affect, normal mood. ABSENT: homicidal ideation, suicidal ideation Skin exam: PRESENT: dry, warm Results Laboratory Results: 09/07/18 04:37 09/07/18 04:37 09/06/18 09/06/18 09/06/18 12:06 12:06 12:06 WBC 16.3 H RBC 5.23 Hgb 14.9 Hct 45.3 MCV 87 MCH 28.5 MCHC 32.9 RDW 15.4 H Plt Count 238 Seg Neutrophils % 81.6 H Lymphocytes % 11.2 L Monocytes % 6.9 Eosinophils % 0.0 Basophils % 0.3 Absolute Neutrophils 13.3 H Absolute Lymphocytes 1.8 Absolute Monocytes 1.1 Absolute Eosinophils 0.0 Absolute Basophils 0.1 VBG pH VBG pCO2 VBG HCO3 VBG Base Excess Sodium 136.9 L Potassium 4.5 Chloride 99 Carbon Dioxide 24 Anion Gap 14 BUN 27 H Creatinine 1.35 H Est GFR ( Amer) 47 L Est GFR (Non-Af Amer) 39 L Glucose 362 H Lactic Acid 3.9 H Calcium 9.7 Total Bilirubin 0.6 AST 23 ALT 31 Alkaline Phosphatase 154 H Total Protein 6.9 Albumin 3.5 Urine Color Urine Appearance Urine pH Ur Specific [place] Urine Protein Urine Glucose (UA) Urine Ketones Urine Blood Urine Nitrite Ur Leukocyte Esterase Urine WBC (Auto) Urine RBC (Auto) 09/06/18 09/06/18 09/06/18 12:06 12:06 16:30 WBC RBC Hgb Hct MCV MCH MCHC RDW Plt Count Seg Neutrophils % Lymphocytes % Monocytes % Eosinophils % Basophils % Absolute Neutrophils Absolute Lymphocytes Absolute Monocytes Absolute Eosinophils Absolute Basophils VBG pH 7.43 H VBG pCO2 35.1 VBG HCO3 22.5 VBG Base Excess -1.2 Sodium Potassium Chloride Carbon Dioxide Anion Gap BUN Creatinine Est GFR ( Amer) Est GFR (Non-Af Amer) Glucose Lactic Acid 3.0 H Calcium Total Bilirubin AST ALT Alkaline Phosphatase Total Protein Albumin Urine Color YELLOW Urine Appearance SLIGHTLY-CLOUDY Urine pH 5.0 Ur Specific [place] 1.015 Urine Protein NEGATIVE Urine Glucose (UA) >=500 H Urine Ketones TRACE H Urine Blood NEGATIVE Urine Nitrite NEGATIVE Ur Leukocyte Esterase NEGATIVE Urine WBC (Auto) 2 Urine RBC (Auto) 2 09/07/18 09/07/18 04:37 04:37 WBC 10.5 RBC 4.37 Hgb 12.4 D Hct 37.5 MCV 86 MCH 28.3 MCHC 33.0 RDW 15.4 H Plt Count 191 Seg Neutrophils % 79.1 H Lymphocytes % 14.7 Monocytes % 5.5 Eosinophils % 0.3 Basophils % 0.4 Absolute Neutrophils 8.3 H Absolute Lymphocytes 1.5 Absolute Monocytes 0.6 Absolute Eosinophils 0.0 Absolute Basophils 0.0 VBG pH VBG pCO2 VBG HCO3 VBG Base Excess Sodium 139.4 Potassium 3.6 Chloride 108 H Carbon Dioxide 24 Anion Gap 7 BUN 23 H Creatinine 0.96 Est GFR ( Amer) > 60 Est GFR (Non-Af Amer) 58 L Glucose 249 H Lactic Acid Calcium 8.2 L Total Bilirubin 0.3 AST 26 ALT 35 Alkaline Phosphatase 107 Total Protein 5.4 L Albumin 2.6 L Urine Color Urine Appearance Urine pH Ur Specific [place] Urine Protein Urine Glucose (UA) Urine Ketones Urine Blood Urine Nitrite Ur Leukocyte Esterase Urine WBC (Auto) Urine RBC (Auto) 09/06/18 12:06 Troponin I < 0.012 Impressions: Chest X-Ray 09/06/18 12:23 IMPRESSION: NO ACUTE RADIOGRAPHIC FINDING IN THE CHEST. Assessment & Plan - Diagnosis (1) Toxic metabolic encephalopathy Is this a current diagnosis for this admission?: Yes (2) Probable sepsis Is this a current diagnosis for this admission?: Yes (3) Hypotension Qualifiers: Hypotension type: unspecified hypotension type Qualified Code(s): I95.9 - Hypotension, unspecified Is this a current diagnosis for this admission?: Yes (4) Fever Qualifiers: Fever type: unspecified Qualified Code(s): R50.9 - Fever, unspecified Is this a current diagnosis for this admission?: Yes (5) Acute kidney injury Is this a current diagnosis for this admission?: Yes (6) Hyperglycemia Is this a current diagnosis for this admission?: Yes (7) Diabetes mellitus type 2 in obese Is this a current diagnosis for this admission?: Yes (8) HLD (hyperlipidemia) Qualifiers: Hyperlipidemia type: pure hypercholesterolemia Qualified Code(s): E78.00 - Pure hypercholesterolemia, unspecified; E78.0 - Pure hypercholesterolemia Is this a current diagnosis for this admission?: Yes (9) Recurrent major depression Qualifiers: Psychotic features: with psychotic features Is this a current diagnosis for this admission?: Yes - Time Time Spent with patient: 25-34 minutes Medications reviewed and adjusted accordingly: Yes Anticipated discharge: Home with Homehealth Within: Other - Inpatient Certification Based on my medical assessment, after consideration of the patient's comorbidities, presenting symptoms, or acuity I expect that the services needed warrant INPATIENT care.: Yes I certify that my determination is in accordance with my understanding of Medicare's requirements for reasonable and necessary INPATIENT services [42 CFR 412.3e].: Yes Medical Necessity: Significant Comorbidiites Make Outpatient Treatment Too Risky, Need Close Monitoring Due to Risk of Patient Decompensation, Need For IV Fluids, Need For Continuous Telemetry Monitoring, Need for IV Antibiotics, Risk of Complication if Not Cared For in Hospital, Risk of Diagnosis Which Will Require Inpatient Eval/Care/Monitoring Post Hospital Care: 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 Restart on Lantus insulin a5t 50% of her home dosage and adjust dose as indicated due differential in her food and intake quantity.
[2018-09-07] MEDS: ATORVASTATIN CALCIUM 20 MG TABLET PO SCH (21:40)
[2018-09-07] MEDS: CARVEDILOL 6.25 MG TABLET PO SCH (21:44)
[2018-09-07] MEDS ORDERED: CARVEDILOL 6.25 MG TABLET PO SCH (22:00)
[2018-09-08] MEDS: NORMAL SALINE 1000 ML 1,000 ML IV PRN ×2 (01:07→13:31)
[2018-09-08] MEDS: AZTREONAM 0.75 GM in DEXTROSE 5%-WATER 50 ML IV SCH ×3 (05:24→22:29)
[2018-09-08] MEDS: PANTOPRAZOLE SODIUM 40 MG TABLET.DR PO SCH (05:24)
[2018-09-08] MEDS: INSULIN LISPRO 100 UNIT/ML 3 ML VIAL SUBCUT SCH ×4 (08:06→22:28)
[2018-09-08] MEDS: INSULIN GLARGINE,HUM.REC.ANLOG 1,000 UNIT/10 ML VIAL SUBCUT SCH (08:07)
[2018-09-08] MEDS: LEVOFLOXACIN 500 MG/D5W RTU 500 MG/100 ML RTUPB IV SCH (09:25)
[2018-09-08] MEDS: ASPIRIN 81 MG TABLET, ENT COATED PO SCH (09:28)
[2018-09-08] MEDS: OLANZAPINE 5 MG TABLET PO SCH ×2 (09:28→22:28)
[2018-09-08] MEDS: DIVALPROEX SODIUM 250 MG TABLET.DR PO SCH ×2 (09:29→22:28)
[2018-09-08] MEDS: ENOXAPARIN SODIUM INJ 30 MG/0.3 ML DISP.SYRIN SUBCUT SCH (09:29)
[2018-09-08] MEDS: GABAPENTIN 300 MG CAPSULE PO SCH ×3 (09:29→17:25)
[2018-09-08] MEDS: CARVEDILOL 6.25 MG TABLET PO SCH ×2 (09:29→22:29)
[2018-09-08] MEDS: BENZTROPINE MESYLATE 1 MG TABLET PO SCH (09:29)
[2018-09-08] MEDS: METFORMIN HCL 500 MG TABLET PO SCH ×2 (09:29→17:25)
[2018-09-08] MEDS: AMLODIPINE BESYLATE 10 MG TABLET PO SCH (09:29)
[2018-09-08] MEDS ORDERED: AMLODIPINE BESYLATE 10 MG TABLET PO SCH (10:00)
[2018-09-08] MEDS: VANCOMYCIN HCL 750 MG in DEXTROSE 5%-WATER 250 ML IV SCH ×2 (10:28→23:06)
--- NOTE | 2018-09-08 20:58 | PDOC PROGRESS REPORT ---
Subjective Progress Note for:: 09/08/18 Subjective:: No chest pain or difficulty with breathing. No fever or chills. No nausea, vomiting or abdominal pain. Her accu-chek continue to demonstrate hyperglycemia. She demonstrated noncompliance with dietary restrictions. Her blood and urine cultures remain no growth to date. She remain on IV antibiotic coverage. Reason For Visit: TOXIC ENCEPHALOPATHY, PROBABLE SEPSIS HYPOTENSTION Physical Exam Vital Signs: Temp Pulse Resp BP Pulse Ox 97.9 F 85 23 H 127/60 H 94 09/08/18 04:07 09/08/18 04:07 09/08/18 04:07 09/08/18 04:07 09/08/18 04:07 Intake & Output 09/07/18 09/08/18 09/09/18 06:59 06:59 06:59 Intake Total 3600 3642 Output Total 390 5650 Balance 3209 Weight 90.8 kg 89.7 kg Physical Exam: General appearance: PRESENT: no acute distress, well-developed, well-nourished Head exam: PRESENT: atraumatic, normocephalic Eye exam: PRESENT: conjunctiva pink. ABSENT: pallor, scleral icterus Ear exam: PRESENT: normal external ear exam Mouth exam: PRESENT: moist Teeth exam: PRESENT: poor dentation Respiratory exam: PRESENT: clear to auscultation arlene, decreased breath sounds - at lung bases Cardiovascular exam: PRESENT: RRR. ABSENT: diastolic murmur, rubs, systolic murmur GI/Abdominal exam: PRESENT: normal bowel sounds, soft. ABSENT: distended, guarding, mass, organomegaly, rebound, tenderness Extremities exam: PRESENT: right BKA. ABSENT: pedal edema Neurological exam: PRESENT: alert, awake, oriented to person, oriented to place, oriented to time, oriented to situation, CN II-XII grossly intact. ABSENT: motor sensory deficit Psychiatric exam: PRESENT: appropriate affect, normal mood. ABSENT: homicidal ideation, suicidal ideation Skin exam: PRESENT: dry, warm Results Laboratory Results: 09/07/18 04:37 09/07/18 04:37 09/06/18 12:06 Troponin I < 0.012 Impressions: Chest X-Ray 09/06/18 12:23 IMPRESSION: NO ACUTE RADIOGRAPHIC FINDING IN THE CHEST. Assessment & Plan - Diagnosis (1) Toxic metabolic encephalopathy Is this a current diagnosis for this admission?: Yes (2) Probable sepsis Is this a current diagnosis for this admission?: Yes (3) Hypotension Qualifiers: Hypotension type: unspecified hypotension type Qualified Code(s): I95.9 - Hypotension, unspecified Is this a current diagnosis for this admission?: Yes (4) Fever Qualifiers: Fever type: unspecified Qualified Code(s): R50.9 - Fever, unspecified Is this a current diagnosis for this admission?: Yes (5) Acute kidney injury Is this a current diagnosis for this admission?: Yes (6) Hyperglycemia Is this a current diagnosis for this admission?: Yes (7) Diabetes mellitus type 2 in obese Is this a current diagnosis for this admission?: Yes (8) HLD (hyperlipidemia) Qualifiers: Hyperlipidemia type: pure hypercholesterolemia Qualified Code(s): E78.00 - Pure hypercholesterolemia, unspecified; E78.0 - Pure hypercholesterolemia Is this a current diagnosis for this admission?: Yes (9) Recurrent major depression Qualifiers: Psychotic features: with psychotic features Is this a current diagnosis for this admission?: Yes - Time Time Spent with patient: 25-34 minutes Medications reviewed and adjusted accordingly: Yes Anticipated discharge: Home with Homehealth Within: Other - Inpatient Certification Based on my medical assessment, after consideration of the patient's comorbidities, presenting symptoms, or acuity I expect that the services needed warrant INPATIENT care.: Yes I certify that my determination is in accordance with my understanding of Medicare's requirements for reasonable and necessary INPATIENT services [42 CFR 412.3e].: Yes Medical Necessity: Significant Comorbidiites Make Outpatient Treatment Too Risky, Need Close Monitoring Due to Risk of Patient Decompensation, Need For IV Fluids, Need For Continuous Telemetry Monitoring, Need for IV Antibiotics, Risk of Complication if Not Cared For in Hospital, Risk of Diagnosis Which Will Require Inpatient Eval/Care/Monitoring Post 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 Increase Lantus insulin to 60 units sc q AM from tomorrow. Maintain on sliding scale Humalog insulin coverage.
[2018-09-08] MEDS: ATORVASTATIN CALCIUM 20 MG TABLET PO SCH (22:29)
[2018-09-09] MEDS: NORMAL SALINE 1000 ML 1,000 ML IV PRN ×2 (01:58→14:33)
[2018-09-09] MEDS: PANTOPRAZOLE SODIUM 40 MG TABLET.DR PO SCH (05:33)
[2018-09-09] MEDS: AZTREONAM 0.75 GM in DEXTROSE 5%-WATER 50 ML IV SCH ×3 (05:35→21:52)
--- NOTE | 2018-09-09 07:55 | PDOC PROGRESS REPORT ---
Subjective Progress Note for:: 09/09/18 Subjective:: Patient denied any chest pain or difficulty with breathing. No fever or chills. No abdominal pain, nausea, or vomiting. Her accu-chek remain elevated but her Lantus Insulin has been increased to 60 units starting this morning. Reason For Visit: TOXIC ENCEPHALOPATHY, PROBABLE SEPSIS HYPOTENSTION Physical Exam Vital Signs: Temp Pulse Resp BP Pulse Ox 97.6 F 77 21 H 120/53 L 94 09/09/18 03:34 09/09/18 03:34 09/09/18 03:34 09/09/18 03:34 09/09/18 03:34 Intake & Output 09/08/18 09/09/18 09/10/18 06:59 06:59 06:59 Intake Total 3692 3953 Output Total 5697 4300 Balance -8 - Weight 89.7 kg 87.7 kg Physical Exam: General appearance: PRESENT: no acute distress, well-developed, well-nourished Head exam: PRESENT: atraumatic, normocephalic Eye exam: PRESENT: conjunctiva pink. ABSENT: pallor, scleral icterus Ear exam: PRESENT: normal external ear exam Mouth exam: PRESENT: moist Teeth exam: PRESENT: poor dentation Respiratory exam: PRESENT: clear to auscultation arlene, decreased breath sounds - at lung bases Cardiovascular exam: PRESENT: RRR. ABSENT: diastolic murmur, rubs, systolic murmur GI/Abdominal exam: PRESENT: normal bowel sounds, soft. ABSENT: distended, guarding, mass, organomegaly, rebound, tenderness Extremities exam: PRESENT: right BKA. ABSENT: pedal edema Neurological exam: PRESENT: alert, awake, oriented to person, oriented to place, oriented to time, oriented to situation, CN II-XII grossly intact. ABSENT: motor sensory deficit Psychiatric exam: PRESENT: appropriate affect, normal mood. ABSENT: homicidal ideation, suicidal ideation Skin exam: PRESENT: dry, warm Results Laboratory Results: 09/07/18 04:37 09/07/18 04:37 09/06/18 12:06 Catheterized Urine Urine Culture - Final NO GROWTH 2 DAYS 09/06/18 12:06 Troponin I < 0.012 Impressions: Chest X-Ray 09/06/18 12:23 IMPRESSION: NO ACUTE RADIOGRAPHIC FINDING IN THE CHEST. Assessment & Plan - Diagnosis (1) Toxic metabolic encephalopathy Is this a current diagnosis for this admission?: Yes (2) Probable sepsis Is this a current diagnosis for this admission?: Yes (3) Hypotension Qualifiers: Hypotension type: unspecified hypotension type Qualified Code(s): I95.9 - Hypotension, unspecified Is this a current diagnosis for this admission?: Yes (4) Fever Qualifiers: Fever type: unspecified Qualified Code(s): R50.9 - Fever, unspecified Is this a current diagnosis for this admission?: Yes (5) Acute kidney injury Is this a current diagnosis for this admission?: Yes (6) Hyperglycemia Is this a current diagnosis for this admission?: Yes (7) Diabetes mellitus type 2 in obese Is this a current diagnosis for this admission?: Yes (8) HLD (hyperlipidemia) Qualifiers: Hyperlipidemia type: pure hypercholesterolemia Qualified Code(s): E78.00 - Pure hypercholesterolemia, unspecified; E78.0 - Pure hypercholesterolemia Is this a current diagnosis for this admission?: Yes (9) Recurrent major depression Qualifiers: Psychotic features: with psychotic features Is this a current diagnosis for this admission?: Yes - Time Time Spent with patient: 25-34 minutes Medications reviewed and adjusted accordingly: Yes Anticipated discharge: Home with Homehealth Within: Other - Inpatient Certification Based on my medical assessment, after consideration of the patient's comorbidities, presenting symptoms, or acuity I expect that the services needed warrant INPATIENT care.: Yes I certify that my determination is in accordance with my understanding of Medicare's requirements for reasonable and necessary INPATIENT services [42 CFR 412.3e].: Yes Medical Necessity: Significant Comorbidiites Make Outpatient Treatment Too Risky, Need Close Monitoring Due to Risk of Patient Decompensation, Need For IV Fluids, Need For Continuous Telemetry Monitoring, Need for IV Antibiotics, Risk of Complication if Not Cared For in Hospital, Risk of Diagnosis Which Will Require Inpatient Eval/Care/Monitoring Post Hospital 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 Her urine culture has been no growth after adequate incubation time. Continue all other current medication management.
[2018-09-09] MEDS: INSULIN LISPRO 100 UNIT/ML 3 ML VIAL SUBCUT SCH ×4 (08:38→21:52)
[2018-09-09] MEDS: ENOXAPARIN SODIUM INJ 30 MG/0.3 ML DISP.SYRIN SUBCUT SCH (10:20)
[2018-09-09] MEDS: LEVOFLOXACIN 500 MG/D5W RTU 500 MG/100 ML RTUPB IV SCH (10:20)
[2018-09-09] MEDS: OLANZAPINE 5 MG TABLET PO SCH ×2 (10:21→21:52)
[2018-09-09] MEDS: CARVEDILOL 6.25 MG TABLET PO SCH ×2 (10:21→21:52)
[2018-09-09] MEDS: METFORMIN HCL 500 MG TABLET PO SCH ×2 (10:21→17:35)
[2018-09-09] MEDS: ASPIRIN 81 MG TABLET, ENT COATED PO SCH (10:21)
[2018-09-09] MEDS: BENZTROPINE MESYLATE 1 MG TABLET PO SCH (10:21)
[2018-09-09] MEDS: GABAPENTIN 300 MG CAPSULE PO SCH ×3 (10:21→17:35)
[2018-09-09] MEDS: DIVALPROEX SODIUM 250 MG TABLET.DR PO SCH ×2 (10:22→21:52)
[2018-09-09] MEDS: AMLODIPINE BESYLATE 10 MG TABLET PO SCH (10:23)
[2018-09-09 10:56] LABS: VANCOMYCIN,TROUGH 8.5 ug/mL (5.0-20.0)
[2018-09-09] MEDS: INSULIN GLARGINE,HUM.REC.ANLOG 1,000 UNIT/10 ML VIAL SUBCUT SCH (11:36)
[2018-09-09] MEDS: VANCOMYCIN HCL 750 MG in DEXTROSE 5%-WATER 250 ML IV SCH ×2 (11:36→17:35)
[2018-09-09] MEDS: ATORVASTATIN CALCIUM 20 MG TABLET PO SCH (21:52)
[2018-09-10] MEDS: VANCOMYCIN HCL 750 MG in DEXTROSE 5%-WATER 250 ML IV SCH ×3 (01:33→18:52)
[2018-09-10] MEDS: NORMAL SALINE 1000 ML 1,000 ML IV PRN ×2 (01:36→18:53)
[2018-09-10] MEDS: PANTOPRAZOLE SODIUM 40 MG TABLET.DR PO SCH (05:36)
[2018-09-10] MEDS: AZTREONAM 0.75 GM in DEXTROSE 5%-WATER 50 ML IV SCH ×3 (05:36→22:23)
[2018-09-10] MEDS: INSULIN LISPRO 100 UNIT/ML 3 ML VIAL SUBCUT SCH ×4 (08:16→22:23)
[2018-09-10] MEDS: INSULIN GLARGINE,HUM.REC.ANLOG 1,000 UNIT/10 ML VIAL SUBCUT SCH (08:17)
[2018-09-10] MEDS: ENOXAPARIN SODIUM INJ 30 MG/0.3 ML DISP.SYRIN SUBCUT SCH (10:25)
[2018-09-10] MEDS: LEVOFLOXACIN 500 MG/D5W RTU 500 MG/100 ML RTUPB IV SCH (10:26)
[2018-09-10] MEDS: BENZTROPINE MESYLATE 1 MG TABLET PO SCH (10:30)
[2018-09-10] MEDS: OLANZAPINE 5 MG TABLET PO SCH ×2 (10:30→22:22)
[2018-09-10] MEDS: METFORMIN HCL 500 MG TABLET PO SCH ×2 (10:30→17:29)
[2018-09-10] MEDS: GABAPENTIN 300 MG CAPSULE PO SCH ×3 (10:31→17:29)
[2018-09-10] MEDS: DIVALPROEX SODIUM 250 MG TABLET.DR PO SCH ×2 (10:31→22:23)
[2018-09-10] MEDS: ASPIRIN 81 MG TABLET, ENT COATED PO SCH (10:31)
[2018-09-10] MEDS: CARVEDILOL 6.25 MG TABLET PO SCH ×2 (10:31→22:22)
[2018-09-10] MEDS: AMLODIPINE BESYLATE 10 MG TABLET PO SCH (10:32)
[2018-09-10 19:50] LABS: VANCOMYCIN,TROUGH 14.1 ug/mL (5.0-20.0)
--- NOTE | 2018-09-10 21:50 | PDOC PROGRESS REPORT ---
Subjective Progress Note for:: 09/10/18 Subjective:: Patient seen by the bedside, she seems to be improving Reason For Visit: TOXIC ENCEPHALOPATHY, PROBABLE SEPSIS HYPOTENSTION Physical Exam Vital Signs: Temp Pulse Resp BP Pulse Ox 98.5 F 81 18 134/65 H 95 09/10/18 15:58 09/10/18 19:00 09/10/18 15:58 09/10/18 15:58 09/10/18 15:58 Intake & Output 09/09/18 09/10/18 09/11/18 06:59 06:59 06:59 Intake Total 3953 4010 2560 Output Total 4300 4879 2300 Balance -347 -865 260 Weight 87.7 kg 83.9 kg General appearance: PRESENT: no acute distress Eye exam: PRESENT: PERRLA Respiratory exam: PRESENT: clear to auscultation arlene Cardiovascular exam: PRESENT: +S1, +S2 GI/Abdominal exam: PRESENT: soft Neurological exam: PRESENT: alert, CN II-XII grossly intact Results Laboratory Results: 09/07/18 04:37 09/09/18 09:55 09/06/18 12:06 Troponin I < 0.012 Impressions: Chest X-Ray 09/06/18 12:23 IMPRESSION: NO ACUTE RADIOGRAPHIC FINDING IN THE CHEST. Assessment & Plan - Diagnosis (1) Sepsis Qualifiers: Sepsis type: sepsis due to unspecified organism Qualified Code(s): A41.9 - Sepsis, unspecified organism Is this a current diagnosis for this admission?: Yes Plan: Continue IV antibiotic (2) Acute kidney injury Is this a current diagnosis for this admission?: Yes Plan: Continue treatment
[2018-09-10] MEDS: ATORVASTATIN CALCIUM 20 MG TABLET PO SCH (22:22)
[2018-09-11] MEDS: VANCOMYCIN HCL 750 MG in DEXTROSE 5%-WATER 250 ML IV SCH ×3 (02:00→18:16)
[2018-09-11] MEDS: PANTOPRAZOLE SODIUM 40 MG TABLET.DR PO SCH (05:19)
[2018-09-11] MEDS: AZTREONAM 0.75 GM in DEXTROSE 5%-WATER 50 ML IV SCH ×3 (05:19→22:51)
[2018-09-11] MEDS: INSULIN LISPRO 100 UNIT/ML 3 ML VIAL SUBCUT SCH ×4 (08:50→22:51)
[2018-09-11] MEDS: INSULIN GLARGINE,HUM.REC.ANLOG 1,000 UNIT/10 ML VIAL SUBCUT SCH (08:51)
[2018-09-11] MEDS: NORMAL SALINE 1000 ML 1,000 ML IV PRN (09:49)
[2018-09-11] MEDS: ENOXAPARIN SODIUM INJ 30 MG/0.3 ML DISP.SYRIN SUBCUT SCH (09:50)
[2018-09-11] MEDS: DIVALPROEX SODIUM 250 MG TABLET.DR PO SCH ×2 (09:51→22:50)
[2018-09-11] MEDS: BENZTROPINE MESYLATE 1 MG TABLET PO SCH (09:51)
[2018-09-11] MEDS: METFORMIN HCL 500 MG TABLET PO SCH ×2 (09:51→18:16)
[2018-09-11] MEDS: ASPIRIN 81 MG TABLET, ENT COATED PO SCH (09:51)
[2018-09-11] MEDS: CARVEDILOL 6.25 MG TABLET PO SCH ×2 (09:51→22:50)
[2018-09-11] MEDS: OLANZAPINE 5 MG TABLET PO SCH ×2 (09:51→22:51)
[2018-09-11] MEDS: AMLODIPINE BESYLATE 10 MG TABLET PO SCH (09:51)
[2018-09-11] MEDS: GABAPENTIN 300 MG CAPSULE PO SCH ×3 (09:52→18:16)
[2018-09-11] MEDS: LEVOFLOXACIN 500 MG/D5W RTU 500 MG/100 ML RTUPB IV SCH (12:17)
[2018-09-11] MEDS: ATORVASTATIN CALCIUM 20 MG TABLET PO SCH (22:50)
[2018-09-12] MEDS: VANCOMYCIN HCL 750 MG in DEXTROSE 5%-WATER 250 ML IV SCH ×3 (04:09→18:02)
[2018-09-12] MEDS: NORMAL SALINE 1000 ML 1,000 ML IV PRN ×2 (04:10→20:23)
[2018-09-12] MEDS: AZTREONAM 0.75 GM in DEXTROSE 5%-WATER 50 ML IV SCH ×3 (05:47→22:08)
[2018-09-12] MEDS: PANTOPRAZOLE SODIUM 40 MG TABLET.DR PO SCH (05:47)
[2018-09-12] MEDS: INSULIN LISPRO 100 UNIT/ML 3 ML VIAL SUBCUT SCH ×4 (07:43→22:07)
[2018-09-12] MEDS: INSULIN GLARGINE,HUM.REC.ANLOG 1,000 UNIT/10 ML VIAL SUBCUT SCH (07:45)
[2018-09-12] MEDS: OLANZAPINE 5 MG TABLET PO SCH ×2 (10:58→22:07)
[2018-09-12] MEDS: GABAPENTIN 300 MG CAPSULE PO SCH ×3 (10:58→18:01)
[2018-09-12] MEDS: DIVALPROEX SODIUM 250 MG TABLET.DR PO SCH ×2 (10:58→22:07)
[2018-09-12] MEDS: METFORMIN HCL 500 MG TABLET PO SCH ×2 (10:59→18:02)
[2018-09-12] MEDS: AMLODIPINE BESYLATE 10 MG TABLET PO SCH (10:59)
[2018-09-12] MEDS: CARVEDILOL 6.25 MG TABLET PO SCH ×2 (10:59→22:07)
[2018-09-12] MEDS: ASPIRIN 81 MG TABLET, ENT COATED PO SCH (10:59)
[2018-09-12] MEDS: BENZTROPINE MESYLATE 1 MG TABLET PO SCH (11:03)
[2018-09-12] MEDS: ENOXAPARIN SODIUM INJ 30 MG/0.3 ML DISP.SYRIN SUBCUT SCH (11:07)
[2018-09-12] MEDS: LEVOFLOXACIN 500 MG/D5W RTU 500 MG/100 ML RTUPB IV SCH (14:36)
--- NOTE | 2018-09-12 18:34 | PDOC PROGRESS REPORT ---
Subjective Progress Note for:: 09/12/18 Subjective:: Patient seen by the bedside no new complaints Reason For Visit: TOXIC ENCEPHALOPATHY, PROBABLE SEPSIS HYPOTENSTION Physical Exam Vital Signs: Temp Pulse Resp BP Pulse Ox 98.4 F 86 16 117/96 H 100 09/12/18 14:37 09/12/18 14:37 09/12/18 14:37 09/12/18 14:37 09/12/18 14:37 Intake & Output 09/11/18 09/12/18 09/13/18 06:59 06:59 06:59 Intake Total 4360 4261 2050 Output Total 3825 4900 1700 Balance 535 -639 350 Weight 87.5 kg 90.1 kg General appearance: PRESENT: no acute distress Eye exam: PRESENT: PERRLA Respiratory exam: PRESENT: clear to auscultation arlene Cardiovascular exam: PRESENT: +S1, +S2 Neurological exam: PRESENT: alert Results Laboratory Results: 09/07/18 04:37 09/09/18 09:55 09/06/18 12:06 Troponin I < 0.012 Impressions: Chest X-Ray 09/06/18 12:23 IMPRESSION: NO ACUTE RADIOGRAPHIC FINDING IN THE CHEST. Assessment & Plan - Diagnosis (1) Sepsis Qualifiers: Sepsis type: sepsis due to unspecified organism Qualified Code(s): A41.9 - Sepsis, unspecified organism Is this a current diagnosis for this admission?: Yes Plan: Continue IV antibiotic (2) Acute kidney injury Is this a current diagnosis for this admission?: Yes
[2018-09-12] MEDS: ATORVASTATIN CALCIUM 20 MG TABLET PO SCH (22:07)
[2018-09-13] MEDS: VANCOMYCIN HCL 750 MG in DEXTROSE 5%-WATER 250 ML IV SCH (01:56)
[2018-09-13] MEDS: AZTREONAM 0.75 GM in DEXTROSE 5%-WATER 50 ML IV SCH ×2 (05:10→13:26)
[2018-09-13] MEDS: PANTOPRAZOLE SODIUM 40 MG TABLET.DR PO SCH (05:11)
[2018-09-13] MEDS: INSULIN LISPRO 100 UNIT/ML 3 ML VIAL SUBCUT SCH ×4 (08:03→21:26)
[2018-09-13] MEDS: INSULIN GLARGINE,HUM.REC.ANLOG 1,000 UNIT/10 ML VIAL SUBCUT SCH (08:03)
[2018-09-13] MEDS: GABAPENTIN 300 MG CAPSULE PO SCH ×3 (09:55→17:28)
[2018-09-13] MEDS: AMLODIPINE BESYLATE 10 MG TABLET PO SCH (09:55)
[2018-09-13] MEDS: ASPIRIN 81 MG TABLET, ENT COATED PO SCH (09:55)
[2018-09-13] MEDS: METFORMIN HCL 500 MG TABLET PO SCH ×2 (09:55→17:28)
[2018-09-13] MEDS: CARVEDILOL 6.25 MG TABLET PO SCH ×2 (09:55→21:25)
[2018-09-13] MEDS: ENOXAPARIN SODIUM INJ 30 MG/0.3 ML DISP.SYRIN SUBCUT SCH (09:55)
[2018-09-13] MEDS: DIVALPROEX SODIUM 250 MG TABLET.DR PO SCH ×2 (09:55→21:25)
[2018-09-13] MEDS: OLANZAPINE 5 MG TABLET PO SCH ×2 (09:55→21:25)
[2018-09-13] MEDS: BENZTROPINE MESYLATE 1 MG TABLET PO SCH (09:55)
[2018-09-13] MEDS: LEVOFLOXACIN 500 MG/D5W RTU 500 MG/100 ML RTUPB IV SCH (12:04)
[2018-09-13] MEDS: NORMAL SALINE 1000 ML 1,000 ML IV PRN ×2 (12:05→23:23)
--- NOTE | 2018-09-13 17:49 | PDOC PROGRESS REPORT ---
Subjective Progress Note for:: 09/13/18 Subjective:: Patient denied any chest pain or difficulty with breathing. No fever or chills. No abdominal pain, nausea, or vomiting. Her accu-chek revealed persistent hyperglycemia. She remain on IV antibiotic therapy. Reason For Visit: TOXIC ENCEPHALOPATHY, PROBABLE SEPSIS HYPOTENSTION Physical Exam Vital Signs: Temp Pulse Resp BP Pulse Ox 97.8 F 73 22 H 124/50 L 98 09/13/18 03:24 09/13/18 07:00 09/13/18 03:24 09/13/18 03:24 09/13/18 03:24 Intake & Output 09/12/18 09/13/18 09/14/18 06:59 06:59 06:59 Intake Total 4261 4312 Output Total 4900 1700 Balance -639 2612 Weight 90.1 kg 91.9 kg Physical Exam: General appearance: PRESENT: no acute distress, well-developed, well-nourished Head exam: PRESENT: atraumatic, normocephalic Eye exam: PRESENT: conjunctiva pink. ABSENT: pallor, scleral icterus Ear exam: PRESENT: normal external ear exam Mouth exam: PRESENT: moist Teeth exam: PRESENT: poor dentation Respiratory exam: PRESENT: clear to auscultation arlene, decreased breath sounds - at lung bases Cardiovascular exam: PRESENT: RRR. ABSENT: diastolic murmur, rubs, systolic murmur GI/Abdominal exam: PRESENT: normal bowel sounds, soft. ABSENT: distended, guarding, mass, organomegaly, rebound, tenderness Extremities exam: PRESENT: right BKA. ABSENT: pedal edema Neurological exam: PRESENT: alert, awake, oriented to person, oriented to place, oriented to time, oriented to situation, CN II-XII grossly intact. ABSENT: motor sensory deficit Psychiatric exam: PRESENT: appropriate affect, normal mood. ABSENT: homicidal ideation, suicidal ideation Skin exam: PRESENT: dry, warm Results Laboratory Results: 09/07/18 04:37 09/09/18 09:55 09/06/18 12:06 Troponin I < 0.012 Impressions: Chest X-Ray 09/06/18 12:23 IMPRESSION: NO ACUTE RADIOGRAPHIC FINDING IN THE CHEST. Assessment & Plan - Diagnosis (1) Toxic metabolic encephalopathy Is this a current diagnosis for this admission?: Yes (2) Probable sepsis Is this a current diagnosis for this admission?: Yes (3) Hypotension Qualifiers: Hypotension type: unspecified hypotension type Qualified Code(s): I95.9 - Hypotension, unspecified Is this a current diagnosis for this admission?: Yes (4) Fever Qualifiers: Fever type: unspecified Qualified Code(s): R50.9 - Fever, unspecified Is this a current diagnosis for this admission?: Yes (5) Acute kidney injury Is this a current diagnosis for this admission?: Yes (6) Hyperglycemia Is this a current diagnosis for this admission?: Yes (7) Diabetes mellitus type 2 in obese Is this a current diagnosis for this admission?: Yes (8) HLD (hyperlipidemia) Qualifiers: Hyperlipidemia type: pure hypercholesterolemia Qualified Code(s): E78.00 - Pure hypercholesterolemia, unspecified; E78.0 - Pure hypercholesterolemia Is this a current diagnosis for this admission?: Yes (9) Recurrent major depression Qualifiers: Psychotic features: with psychotic features Is this a current diagnosis for this admission?: Yes - Time Time Spent with patient: 25-34 minutes Medications reviewed and adjusted accordingly: Yes Anticipated discharge: Home with Homehealth Within: Other - Inpatient Certification Based on my medical assessment, after consideration of the patient's comor bidities, presenting symptoms, or acuity I expect that the services needed warrant INPATIENT care.: Yes I certify that my determination is in accordance with my understanding of Medicare's requirements for reasonable and necessary INPATIENT services [42 CFR 412.3e].: Yes Medical Necessity: Significant Comorbidiites Make Outpatient Treatment Too Risky, Need Close Monitoring Due to Risk of Patient Decompensation, Need For IV Fluids, Need For Continuous Telemetry Monitoring, Need for IV Antibiotics, Risk of Complication if Not Cared For in Hospital, Risk of Diagnosis Which Will Require Inpatient Eval/Care/Monitoring Post 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 D/C Fish cath. Increase Metformin to 1000 mg p.o bid. Co ntinue all other current medication management.
[2018-09-13] MEDS: ATORVASTATIN CALCIUM 20 MG TABLET PO SCH (21:26)
[2018-09-14] MEDS: PANTOPRAZOLE SODIUM 40 MG TABLET.DR PO SCH (05:05)
[2018-09-14 06:01] LABS: HEMATOCRIT 38.9 % (36.0-47.0); HEMOGLOBIN 12.8 g/dL (12.0-15.5); MEAN CORPUSCULAR HEMOGLOBIN 28.4 pg (27.0-33.4); MEAN CORPUSCULAR VOLUME 86 fl (80-97); PLATELET COUNT 247 10^3/uL (150-450); RED BLOOD COUNT 4.52 10^6/uL (3.72-5.28); RED CELL DISTRIBUTION WIDTH 15.2 % (11.5-14.0); WHITE BLOOD COUNT 7.3 10^3/uL (4.0-10.5)
[2018-09-14 06:30] LABS: ALANINE AMINOTRANSFERASE 29 U/L (9-52); ALKALINE PHOSPHATASE 130 U/L (38-126); ANION GAP 10 (5-19); ASPARTATE AMINO TRANSFERASE 18 U/L (14-36); BILIRUBIN,DIRECT 0.3 mg/dL (0.0-0.4); BILIRUBIN,TOTAL 0.3 mg/dL (0.2-1.3); BLOOD UREA NITROGEN 17 mg/dL (7-20); CALCIUM 8.8 mg/dL (8.4-10.2); CARBON DIOXIDE 24 mmol/L (22-30); CHLORIDE 106 mmol/L (98-107); GLUCOSE 286 mg/dL (75-110); POTASSIUM 4.6 mmol/L (3.6-5.0); SODIUM 140.2 mmol/L (137-145); TOTAL PROTEIN 5.7 g/dL (6.3-8.2)
[2018-09-14 06:38] LABS: ABSOLUTE LYMPHOCYTES# (MANUAL) 3.5 10^3/uL (0.5-4.7); ABSOLUTE MONOCYTES # (MANUAL) 0.4 10^3/uL (0.1-1.4); BAND NEUTROPHILS % (MANUAL) 1 % (3-5); BASOPHILS % (MANUAL) 2 % (0-2); EOSINOPHILS % (MANUAL) 1 % (0-6); LYMPHOCYTES % (MANUAL) 48 % (13-45); MONOCYTES % (MANUAL) 6 % (3-13); PLATELET COMMENT ADEQUATE; RBC MORPHOLOGY COMMENT NORMO-CYTIC/CHROMIC; SEGMENTED NEUTROPHILS % (MAN) 42 % (42-78); TOTAL CELLS COUNTED 100
--- NOTE | 2018-09-14 07:45 | PDOC DISCHARGE SUMMARY ---
General - Admit/Disc Date/PCP Admission Date/Primary Care Provider: 09/06/18 13:28 SONYA OREN Discharge Date: 09/14/18 - Discharge Diagnosis (1) Toxic metabolic encephalopathy Is this a current diagnosis for this admission?: Yes (2) Probable sepsis Is this a current diagnosis for this admission?: Yes (3) Hypotension Is this a current diagnosis for this admission?: Yes (4) Fever Is this a current diagnosis for this admission?: Yes (5) Acute kidney injury Is this a current diagnosis for this admission?: Yes (6) Hyperglycemia Is this a current diagnosis for this admission?: Yes (7) Diabetes mellitus type 2 in obese Is this a current diagnosis for this admission?: Yes (8) HLD (hyperlipidemia) Is this a current diagnosis for this admission?: Yes (9) Recurrent major depression Is this a current diagnosis for this admission?: Yes - Additional Information Resuscitation Status: Full Code Discharge Diet: Cardiac, Diabetic Discharge Activity: Activity As Tolerated, Slowly Increase Activity Prescriptions: Insulin Glargine,Hum.rec.anlog [Lantus Insulin 100 Unit/1 ml 10 ml] 60 unit SUBCUT QAM #2000 unit Metformin HCl [Glucophage 500 mg Tablet] 1,000 mg PO BIDACBS #120 tablet Home Medications: Amlodipine Besylate [Norvasc 10 mg Tablet] 10 mg PO DAILY 09/06/18 Aspirin [Ecotrin 81 mg EC Tablet] 81 mg PO DAILY 09/06/18 Atorvastatin Calcium [Lipitor 20 mg Tablet] 20 mg PO QHS 09/06/18 Benztropine Mesylate [Cogentin 1 mg Tablet] 1 tab PO DAILY 09/06/18 Divalproex Sodium [Depakote] 250 mg PO Q12 09/06/18 Donepezil HCl [Aricept 5 mg Tablet] 5 mg PO DAILY 09/06/18 Furosemide [Lasix 20 mg Tablet] 20 mg PO QAM 09/06/18 Gabapentin [Neurontin] 600 mg PO Q8 09/06/18 Irbesartan/Hydrochlorothiazide [Irbesartan-Hctz 150-12.5 mg Tb] 1 each PO DAILY 09/06/18 Olanzapine [Zyprexa 5 mg Tablet] 5 mg PO Q12 09/06/18 Carvedilol [Coreg 6.25 mg Tablet] 6.25 mg PO Q12 09/07/18 Insulin Glargine,Hum.rec.anlog [Lantus Insulin 100 Unit/1 ml 10 ml] 60 unit SUBCUT QAM #2000 unit 09/14/18 Metformin HCl [Glucophage 500 mg Tablet] 1,000 mg PO BIDACBS #120 tablet 09/14/18 History of Present Illness Patient complains of: Confusion, Fever and Elevated blood glucose History of Present Illness: DEREK LEÓN is a 68 year old female known to my practice who presented to ED via EMS following family activation for service due to patient development of confusion, fever and elevated blood glucose upon waking up this morning. Family reported that patient was fine when she went to bed last night. She developed elevated temperature and become confused this morning. Family reported elevated blood glucose for couple of days. She denied any coughing, difficulty with breathing, chest pain, dysuria, flank pain, hematuria, dizziness, headache, nasal or sinus congestion. She denied any difficulty with swallowing or sore throat. EMS crew reported serum lactic acid level at 3.7 with associated hypotension necessitating administration of IV fluid en route to the hospital. Her initial evaluation in the ED was significant for persistent hypotension, abnormal renal indices, elevated lactic acid level, hyperglycemia, and leukocytosis. She was treated with IV fluid support, antipyretics, and antibiotic after appropriate workup. Her morbidities include Diabetes mellitus type 2, Congestive heart failure, Hypertension, Hyperlipidemia, and Bipolar Disorder. Hospital Course Hospital Course: Patient was admitted as case of toxic encephalopathy related to hyperglycemia and probable sepsis. Her blood and urine cultures were no growth. She was initially managed with IV Vancomycin, Levofloxacin and Aztreonam. Her initial leukocytosis did resolved. she was transition to oral Levofloxacin. She remain afebrile for 24 hours. She is agreeable to discharge home today. Her hospitalization was marred with significant hyperglycemia with need for her diabetes mellitus management with increase of her Lantus Insulin to 60 units and Metformin to 1000 mg p.o bid. I emphasized compliance with dietary restrictions and medication administration. She will follow up in the office as instructed upon discharge. Physical Exam Vital Signs: Temp Pulse Resp BP Pulse Ox 98.7 F 84 22 H 127/70 H 95 09/14/18 04:02 09/14/18 04:02 09/14/18 04:02 09/14/18 04:02 09/14/18 04:02 Intake & Output 09/13/18 09/14/18 09/15/18 06:59 06:59 06:59 Intake Total 4312 3384 Output Total 1700 Balance 2612 3384 Weight 91.9 kg 87.9 kg Physical Exam: General appearance: PRESENT: no acute distress, well-developed, well-nourished Head exam: PRESENT: atraumatic, normocephalic Eye exam: PRESENT: conjunctiva pink. ABSENT: pallor, scleral icterus Ear exam: PRESENT: normal external ear exam Mouth exam: PRESENT: moist Teeth exam: PRESENT: poor dentation Respiratory exam: PRESENT: clear to auscultation arlene Cardiovascular exam: PRESENT: RRR. ABSENT: diastolic murmur, rubs, systolic murmur GI/Abdominal exam: PRESENT: normal bowel sounds, soft. ABSENT: distended, guarding, mass, organomegaly, rebound, tenderness Extremities exam: PRESENT: right BKA. ABSENT: pedal edema Neurological exam: PRESENT: alert, awake, oriented to person, oriented to place, oriented to time, oriented to situation, CN II-XII grossly intact. ABSENT: motor sensory deficit Psychiatric exam: PRESENT: appropriate affect, normal mood. ABSENT: homicidal ideation, suicidal ideation Skin exam: PRESENT: dry, warm Results Laboratory Results: 09/14/18 05:30 09/14/18 05:30 09/14/18 09/14/18 05:30 05:30 WBC 7.3 RBC 4.52 Hgb 12.8 Hct 38.9 MCV 86 MCH 28.4 MCHC 33.0 RDW 15.2 H Plt Count 247 Seg Neutrophils % Not Reportable Lymphocytes % Not Reportable Monocytes % Not Reportable Eosinophils % Not Reportable Basophils % Not Reportable Absolute Neutrophils Not Reportable Absolute Lymphocytes Not Reportable Absolute Monocytes Not Reportable Absolute Eosinophils Not Reportable Absolute Basophils Not Reportable Sodium 140.2 Potassium 4.6 Chloride 106 Carbon Dioxide 24 Anion Gap 10 BUN 17 Creatinine 0.80 Est GFR ( Amer) > 60 Est GFR (Non-Af Amer) > 60 Glucose 286 H Calcium 8.8 Total Bilirubin 0.3 AST 18 ALT 29 Alkaline Phosphatase 130 H Total Protein 5.7 L Albumin 3.0 L 09/06/18 12:06 Troponin I < 0.012 Impressions: Chest X-Ray 09/06/18 12:23 IMPRESSION: NO ACUTE RADIOGRAPHIC FINDING IN THE CHEST. Qualifiers - * PATIENT BEING DISCHARGED WITH ANY OF THE FOLLOWING DIAGNOSIS: No Acute Heart Failure Is this a Heart Failure Patient?: No Plan Discharge Plan: D/C home today. Follow up in the office as instructed upon discharge.
[2018-09-14] MEDS: INSULIN LISPRO 100 UNIT/ML 3 ML VIAL SUBCUT SCH ×2 (08:03→12:09)
[2018-09-14] MEDS: METFORMIN HCL 500 MG TABLET PO SCH (08:04)
[2018-09-14] MEDS: INSULIN GLARGINE,HUM.REC.ANLOG 1,000 UNIT/10 ML VIAL SUBCUT SCH (08:04)
[2018-09-14] MEDS: AMLODIPINE BESYLATE 10 MG TABLET PO SCH (09:28)
[2018-09-14] MEDS: OLANZAPINE 5 MG TABLET PO SCH (09:28)
[2018-09-14] MEDS: DIVALPROEX SODIUM 250 MG TABLET.DR PO SCH (09:28)
[2018-09-14] MEDS: ASPIRIN 81 MG TABLET, ENT COATED PO SCH (09:28)
[2018-09-14] MEDS: BENZTROPINE MESYLATE 1 MG TABLET PO SCH (09:28)
[2018-09-14] MEDS: CARVEDILOL 6.25 MG TABLET PO SCH (09:28)
[2018-09-14] MEDS: GABAPENTIN 300 MG CAPSULE PO SCH ×2 (09:28→14:33)
[2018-09-14] MEDS: ENOXAPARIN SODIUM INJ 30 MG/0.3 ML DISP.SYRIN SUBCUT SCH (09:28)
[2018-09-14] MEDS: NORMAL SALINE 1000 ML 1,000 ML IV PRN (09:29)
[2018-09-14] MEDS ORDERED: LEVOFLOXACIN 500 MG TABLET PO SCH (10:00)
[2018-09-14 16:23] VITALS: BP 143/70
== END 2018-09-14 17:37 | disposition home or self-care (01) | DRG 682 ==
LOC: ER 12:07 → EH 13:28 → 3W 17:57
PROVIDERS: ADMIT Internal Medicine Geriatric Medicine; ATTEND Internal Medicine Geriatric Medicine
DX: N17.9 Acute kidney failure, unspecified (principal); G93.41 Metabolic encephalopathy; F33.3 Major depressive disorder, recurrent, severe with psychotic symptoms; N18.9 Chronic kidney disease, unspecified; E11.65 Type 2 diabetes mellitus with hyperglycemia; E66.9 Obesity, unspecified; I95.9 Hypotension, unspecified; E78.5 Hyperlipidemia, unspecified; I10 Essential (primary) hypertension; E78.00 Pure hypercholesterolemia, unspecified; E11.22 Type 2 diabetes mellitus with diabetic chronic kidney disease; F17.200 Nicotine dependence, unspecified, uncomplicated; Z79.899 Other long term (current) drug therapy; Z79.4 Long term (current) use of insulin; Z89.511 Acquired absence of right leg below knee; Z79.82 Long term (current) use of aspirin; Z88.4 Allergy status to anesthetic agent; Z88.0 Allergy status to penicillin; Z88.8 Allergy status to other drugs, medicaments and biological substances
CPT/HCPCS: 36415; 51702; 71045; 80053; 80202; 81001; 82565; 82803; 82962; 83036; 83605; 84484; 85025; 85610; 87040; 87086; 93005; 93010; 96361; 96374; 99291; J0696; J1650; J1815; J1956; J3370; J3490; J7030; J7060

== ENCOUNTER → 2018-10-05 | Outpatient (CLI) | payer BC ==
--- NOTE | 2018-10-05 13:15 | WOMENS IMAGING REPORT ---
EXAM DESCRIPTION: 3D SCREENING MAMMO BILAT COMPLETED DATE/TIME: 10/05/2018 12:46 pm REASON FOR STUDY: Z12.31 ROUTINE 3D BILATERAL SCREENING Z12.31 ENCNTR SCREEN MAMMOGRAM FOR MALIGNAN T NEOPLASM OF [place] COMPARISON: 03/06/2017 EXAM PARAMETERS: Standard craniocaudal and mediolateral oblique views of each breast recorded using digital acquisition and breast tomosynthesis. Read with the assistance of CAD. .[facility] - R2 Brake Lining Finisher Asbestos Version 9.2 LIMITATIONS: None. FINDINGS: Findings present which are benign by mammographic criteria. No suspicious masses, calcific ations or architectural distortion. Pertinent benign findings: Multiple peripherally calcified oil cysts are present bilaterally Benign mammographic findings may include one or more of the following: Smooth masses, popcorn/rim/coa rse calcifications, asymmetries, post-procedure changes, and lesions with long-standing stability. IMPRESSION: BENIGN MAMMOGRAPHIC FINDINGS. BIRADS 2 BREAST DENSITY: b. There are scattered areas of fibroglandular density. BIRAD: ASSESSMENT: 2 BENIGN FINDING(S) RECOMMENDATION: ROUTINE SCREENING COMMENT: The patient has been notified of the results by letter per [place] requirements. Additional no tification policies are in place for contacting patient with suspicious or incomplete findings. Quality ID #[id number]: The [employer] recommends an annual screening mammogram for women aged 40 years or over. This facility utilizes a reminder system to ensure that all patients receive reminder letters, and/or direct phone calls for appointments. This includes reminders for routine scr eening mammograms, diagnostic mammograms, or other Breast Imaging Interventions when appropriate. Th is patient will be placed in the appropriate reminder system. TECHNICAL DOCUMENTATION: FINDING NUMBER: (1) ASSESSMENT: (1) JOB ID: [id number] [employer]- All Rights Reserved Reading location - IP/workstation name: [email or web address]
== END ==
LOC: WI 11:57
PROVIDERS: ATTEND Internal Medicine Geriatric Medicine
DX: Z12.31 Encounter for screening mammogram for malignant neoplasm of breast (principal)
CPT/HCPCS: 77063; 77067

== ENCOUNTER → 2019-03-15 | Outpatient (CLI) | payer MEDICARE, BC ==
--- NOTE | 2019-03-15 17:02 | XCELERA REPORT ---
[address] [address] Lower Extremity Arterial Evaluation Name: DEREK LEÓN Age: 68 yrs Gender: Female : 1950 Patient Status: Outpatient Patient Location: Study Date: 03/15/2019 01:25 PM Procedure: A color flow and duplex scan of the lower extremity arteries was performed bilaterally with velocity and waveform anaylsis. Ankle brachial indicies performed. Reason For Study: LT CALF ULCER Ordering Physician: VIRAL SANDOVAL Performed By: Marcos Villalobos Measurements and Calculations Right Left CAUSTIC ROOM OPERATOR PSV 205.3 159.8 cm/sec Prox PFA PSV -211.2 -113.8cm/sec Prox SFA PSV 127.1 151.6 cm/sec Mid SFA PSV -113.0 -137.5cm/sec Dist SFA PSV -79.9 -193.5cm/sec Prox Pop A PSV 22.0 172.9 cm/sec Dist CARISSA PSV 72.3 cm/sec Dist FINANCIAL UNDERWRITER PSV 120.2 cm/sec Dandre Pedis PSV 36.5 cm/sec Right Side Arterial Evaluation Normal velocity and triphasic waveforms noted in the Common Femoral artery to the Femoral artery. Biphasic with low velocity in the Popliteal artery. Below the knee amputation present. Left Side Arterial Evaluation Normal velocity and triphasic waveforms noted from the Common Femoral artery to the Popliteal artery. Biphasic with normal velocity in the infrageniculate arteries. Ankle Brachial index 1.00. Interpretation Summary Right side imaging limited to remaining tissue. Moderate compromise at the Popliteal level. Left sided imaging indicated mild compromise at the infrageniculate level. LISA on the left is normal, suggesting no significant arterial obstructive disease. : VIRAL SANDOVAL > Freedom Gibbs
== END ==
LOC: SP 13:08
PROVIDERS: ATTEND Nurse Practitioner Family
DX: L97.222 Non-pressure chronic ulcer of left calf with fat layer exposed (principal)
CPT/HCPCS: 93922; 93925

== ENCOUNTER → 2019-05-30 | Outpatient (CLI) | payer MEDICARE, BC ==
--- NOTE | 2019-06-01 08:31 | XCELERA REPORT ---
[address] [address] Lower Extremity Arterial Evaluation Name: DEREK LEÓN Age: 68 yrs Gender: Female : 1950 Patient Status: Outpatient Patient Location: Study Date: 05/30/2019 09:32 AM Procedure: A color flow and duplex scan of the lower extremity arteries was performed on the left with velocity and waveform anaylsis. Reason For Study: LLE PAIN Ordering Physician: SONYA LOTT Performed By: Marcos Villalobos Measurements and Calculations Right Left WOODS MANAGER PSV 162.6 cm/sec Prox PFA PSV -107.5cm/sec Prox SFA PSV 150.1 cm/sec Mid SFA PSV -119.4cm/sec Dist SFA PSV -159.2cm/sec Prox Pop A PSV 127.0 cm/sec Dist CARISSA PSV 92.1 cm/sec Dist TICKET MANAGER PSV 143.3 cm/sec Dandre Pedis PSV 58.1 cm/sec Left Side Arterial Evaluation Atherosclerotic plaque noted extensively in the larger vessels. Normal velocity and triphasic waveforms noted from the Common Femoral artery to the Popliteal . Biphasic with normal velocity in the infrageniculate arteries. Interpretation Summary Moderate hemodynamically significant lesions in the left lower extremity only, on duplex imaging, at rest. Duplex findings on the left, significant for atherosclerotic plaque,. Moderate disease, hemodynamically significant in the infrageniculate arteries. : SONYA LOTT > Freedom Gibbs
== END ==
LOC: SP 09:13
PROVIDERS: ATTEND Internal Medicine Geriatric Medicine
DX: R60.0 Localized edema (principal)
CPT/HCPCS: 93926

== ENCOUNTER 2019-09-18 18:25 | Emergency (ER) | payer MEDICARE, BC ==
[2019-09-18 19:03] LABS: ABSOLUTE BASOPHILS # (AUTO) 0.1 10^3/uL (0.0-0.2); ABSOLUTE EOSINOPHILS # (AUTO) 0.1 10^3/uL (0.0-0.6); ABSOLUTE LYMPHOCYTES (AUTO) 4.1 10^3/uL (0.5-4.7); ABSOLUTE MONOCYTES (AUTO) 0.6 10^3/uL (0.1-1.4); ABSOLUTE NEUT (AUTO) 3.3 10^3/uL (1.7-8.2); BASOPHILS % (AUTO) 0.7 % (0-2); EOSINOPHILS % (AUTO) 1.2 % (0-6); HEMATOCRIT 40.3 % (36.0-47.0); HEMOGLOBIN 13.4 g/dL (12.0-15.5); LYMPHOCYTES % (AUTO) 50.2 % (13-45); MEAN CORPUSCULAR HEMOGLOBIN 29.3 pg (27.0-33.4); MEAN CORPUSCULAR HGB CONC 33.4 g/dL (32.0-36.0); MEAN CORPUSCULAR VOLUME 88 fl (80-97); MONOCYTES % (AUTO) 7.6 % (3-13); PLATELET COUNT 259 10^3/uL (150-450); RED BLOOD COUNT 4.58 10^6/uL (3.72-5.28); RED CELL DISTRIBUTION WIDTH 15.3 % (11.5-14.0); SEGMENTED NEUTROPHILS % (AUTO) 40.3 % (42-78); TOTAL CELLS COUNTED % (AUTO) 100 %; WHITE BLOOD COUNT 8.2 10^3/uL (4.0-10.5)
[2019-09-18 19:28] LABS: ALBUMIN 3.8 g/dL (3.5-5.0); ALKALINE PHOSPHATASE 105 U/L (38-126); ANION GAP 10 (5-19); ASPARTATE AMINO TRANSFERASE 30 U/L (14-36); BILIRUBIN,TOTAL 0.4 mg/dL (0.2-1.3); BLOOD UREA NITROGEN 21 mg/dL (7-20); CALCIUM 9.6 mg/dL (8.4-10.2); CARBON DIOXIDE 27 mmol/L (22-30); CHLORIDE 99 mmol/L (98-107); GLUCOSE 312 mg/dL (75-110); POTASSIUM 4.5 mmol/L (3.6-5.0)
--- NOTE | 2019-09-18 19:33 | RADIOLOGY REPORT (SQ) ---
EXAM DESCRIPTION: CHEST SINGLE VIEW IMAGES COMPLETED DATE/TIME: 09/18/2019 7:24 pm REASON FOR STUDY: htn COMPARISON: 09/06/2018. EXAM PARAMETERS: NUMBER OF VIEWS: One view. TECHNIQUE: Single frontal radiographic view of the chest acquired. RADIATION DOSE: NA LIMITATIONS: None. FINDINGS: LUNGS AND PLEURA: No opacities, masses or pneumothorax. No pleural effusion. MEDIASTINUM AND HILAR STRUCTURES: No masses. Contour normal. HEART AND VASCULAR STRUCTURES: Heart normal in size. Normal vasculature. BONES: No acute findings. HARDWARE: None in the chest. OTHER: No other significant finding. IMPRESSION: NO ACUTE RADIOGRAPHIC FINDING IN THE CHEST. TECHNICAL DOCUMENTATION: JOB ID: [id number] [employer]- All Rights Reserved Reading location - IP/workstation name: [email or web address]
[2019-09-18 20:07] LABS: APPEARANCE,URINE CLEAR; BILIRUBIN,URINE NEGATIVE (NEGATIVE); COLOR,URINE YELLOW; GLUCOSE, URINE >=500 mg/dL (NEGATIVE); KETONES,URINE NEGATIVE (NEGATIVE); LEUKOCYTE ESTERASE,URINE NEGATIVE (NEGATIVE); NITRITE,URINE NEGATIVE (NEGATIVE); PROTEIN,URINE NEGATIVE (NEGATIVE); URINE SPECIFIC GRAVITY 1.014; UROBILINOGEN,URINE NEGATIVE mg/dL (<2.0)
[2019-09-18] MEDS ORDERED: INSULIN REG, HUMAN 100 UNIT/ML 3 ML VIAL (PYX) IV ONE (20:31)
[2019-09-18 21:48] VITALS: BP 121/77
--- NOTE | 2019-09-19 01:07 | ER Document Report ---
Entered by BRIAN ALONSO SCRIBE 09/18/19 7054 Acting as scribe for:LEO LAWRENCE, DO ED General - General Chief Complaint: High Blood Sugar Stated Complaint: BLOOD SUGAR PROBLEMS Time Seen by Provider: 09/18/19 18:44 Primary Care Provider: SONYA LOTT MD [Primary Care Provider] - Follow up as needed Information source: Patient Notes: This 69 year old female patient presents to the emergency department today with complaints of shaking swelling in the left leg. Patient states there is fluid in her left leg and it is causing pain. Patient states her grandson checked her sugar level this morning and it was higher than usual. Patient states she has a history of diabetes mellitus. Patient denies any fever, nausea, vomiting, or diarrhea. TRAVEL OUTSIDE OF THE [place] IN LAST 30 DAYS: No - Related Data Allergies/Adverse Reactions: diphenhydramine HCl [From Benadryl] Allergy (Verified 01/29/18 10:42) iodine Allergy (Verified 01/29/18 10:42) morphine [Morphine] Allergy (Verified 01/29/18 10:42) Penicillins Allergy (Verified 01/29/18 10:42) Home Medications: Amlodipine besylate, atorvastatin, benztropine mes, carvedilol, divalproex sod DR, donepezil hcl, furosemide, gabapentin, aspirin, irbesartan-HCTZ, metformin, olanzapine, lantus Past Medical History - General Information source: Patient - Social History Smoking Status: Former Smoker Cigarette use (# per day): No Frequency of alcohol use: None Drug Abuse: None Family History: None Patient has homicidal ideation: No - Past Medical History Cardiac Medical History: Reports: Hx Congestive Heart Failure, Hx Hypercholesterolemia, Hx Hypertension Endocrine Medical History: Reports: Hx Diabetes Mellitus Type 2 Psychiatric Medical History: Reports: Hx Bipolar Disorder Past Surgical History: Reports: Hx Abdominal Surgery - possible exploratory, Hx Orthopedic Surgery - R BKA Review of Systems - Review of Systems Constitutional: See HPI. denies: Fever EENT: No symptoms reported Cardiovascular: No symptoms reported Respiratory: No symptoms reported Gastrointestinal: See HPI. denies: Diarrhea, Nausea, Vomiting Genitourinary: No symptoms reported Female Genitourinary: No symptoms reported Musculoskeletal: See HPI, Leg swelling Skin: No symptoms reported Hematologic/Lymphatic: No symptoms reported Neurological/Psychological: See HPI -: Yes All other systems reviewed and negative Physical Exam - Vital signs Vitals: Resp Pulse Ox 20 96 09/18/19 18:36 09/18/19 18:36 - General General appearance: Appears well, Alert - HEENT Head: Normocephalic, Atraumatic Eyes: Normal Pupils: PERRL Mouth/Lips: Other - Dental caries - Respiratory Respiratory status: No respiratory distress Chest status: Nontender Breath sounds: Normal Chest palpation: Normal - Cardiovascular Rhythm: Regular Heart sounds: Normal auscultation Murmur: No - Abdominal Inspection: Obese Distension: No distension Bowel sounds: Normal Tenderness: Nontender - Extremities General upper extremity: Normal inspection. No: Edema Notes: Right leg is amputated below the knee. Venous changes and erythema to the anterior left lower leg. Diminished pulse of 3 seconds of the left foot. Onychomycosis of the toenails on the left foot. - Neurological Neuro grossly intact: Yes Cognition: Normal Orientation: AAOx4 - Psychological Associated symptoms: Normal affect, Normal mood - Skin Skin Temperature: Warm Skin Moisture: Dry Skin Color: Normal Course - Re-evaluation Re-evalutation: 09/18/19 23:54 MDM 69 year old female arrives with concern over elevated blood sugar and left leg swelling. No fever and nontoxic here. She has had arterial studies in the left leg relatively recently and we obtained a venous doppler today. No Dvt noted. She feels better and blood sugar has been treated. Her grandson lives with her and will get her and ensure follow up. She epxressed understanding of this. - Vital Signs Vital signs: Temp Pulse Resp BP Pulse Ox 98.2 F 13 121/77 98 09/18/19 18:44 09/18/19 21:01 09/18/19 21:01 09/18/19 21:01 - Laboratory Result Diagrams: 09/18/19 18:00 09/18/19 18:00 Laboratory results interpreted by me: 09/18/19 09/18/19 09/18/19 18:00 18:00 18:00 RDW 15.3 H Lymph % (Auto) 50.2 H Seg Neutrophils % 40.3 L D-Dimer 0.95 H Sodium 135.7 L BUN 21 H Glucose 312 H POC Glucose Urine Glucose (UA) 09/18/19 09/18/19 18:38 19:48 RDW Lymph % (Auto) Seg Neutrophils % D-Dimer Sodium BUN Glucose POC Glucose 311 H Urine Glucose (UA) >=500 H Discharge - Discharge Clinical Impression: Hyperglycemia, Diabetes mellitus type 2 in obese Condition: Stable Disposition: HOME, SELF-CARE Instructions: Control of Diabetes During Illness ([facility]), Diabetes ([facility]), Hyperglycemia ([facility]) Additional Instructions: Call Dr. Lott for follow up early this week - Thursday. Please return here for any problems or concerns including but not limited to chest pain or shortness of breath. Referrals: SONYA LOTT MD [Primary Care Provider] - Follow up as needed I personally performed the services described in the documentation, reviewed and edited the documentation which was dictated to the scribe in my presence, and it accurately records my words and actions.
--- NOTE | 2019-09-19 01:36 | RADIOLOGY REPORT (SQ) ---
Ultrasound left lower extremity venous duplex exam on 09/18/2019 at 10:52 PM CLINICAL INDICATION: Left leg pain COMPARISON: None FINDINGS: Multiple sonographic images are obtained in the right groin and from the left groin through the left calf vessels. Color flow, compression and spectral analysis are all performed. There is complete compressibility of the veins of the lower extremity. Good color flow is identified within the veins of the lower extremity. IMPRESSION: No evidence of deep venous thrombus.
== END 2019-09-19 01:23 | disposition home or self-care (01) ==
LOC: ER 18:25
DX: E11.65 Type 2 diabetes mellitus with hyperglycemia (principal); E66.9 Obesity, unspecified; M79.89 Other specified soft tissue disorders; R60.0 Localized edema; Z79.84 Long term (current) use of oral hypoglycemic drugs; Z79.4 Long term (current) use of insulin; Z79.899 Other long term (current) drug therapy; Z88.0 Allergy status to penicillin; Z88.8 Allergy status to other drugs, medicaments and biological substances; Z87.891 Personal history of nicotine dependence; I50.9 Heart failure, unspecified; I11.0 Hypertensive heart disease with heart failure
CPT/HCPCS: 99285; 36415; 82962; 83735; 84443; 85025; 80053; 81001; 85379; 93971; 71045; A9270; J1815